=== PATIENT | male | born 1930 | race Caucasian/White ===

== ENCOUNTER 2017-07-06 13:22 | Observation (INO) | payer OTHER ==
[2017-07-06 13:36] VITALS: BMI 24.4
--- NOTE | 2017-07-06 15:52 | PDOC ---
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 The caregiver witnessed the event while he was sitting in his shower chair and showering, and she notes that first his speech became more slurred than usual, then vocalized a groan and had pinpoint pupils, and then he lost consciousness and had a non-traumatic slump forward without hitting his head or falling out of the chair. He came to within a few seconds but currently does not remember anything about the event. The caregiver helped transfer him to his bed where he was incontinent of stool ( watery diarrhea) and notes that he had one additional episode of incontinence of stool after this. The family notes that the patient has been acting more confused than normal. The patient himself notes about 30 minutes of low-grade dull non-radiating lower central chest pain for 30 minutes after the incident ( none now) as well as a low-grade frontal headache. The family denies any recent fever, chills, shortness of breath, cough, or other symptoms. They do note that he has had moderate blood in the stool and diaper over the past few days, as well as low-grade abdominal cramping about 4 days ago, and UTI for which he was treated with Keflex last week. Past History - Past Medical History Allergies/Adverse Reactions: Allergies Allergy/AdvReac Type Severity Reaction Status Date / Time No Known Allergies Allergy Verified 07/06/17 13:26 Home Medications: Ambulatory Orders Apixaban [Eliquis] 5 mg PO BID 07/06/17 Cholecalciferol (Vitamin D3) [D-2000] 1,000 unit PO DAILY 07/06/17 Diltiazem HCl [Diltiazem 24Hr Cd] 240 mg PO DAILY 07/06/17 Docusate Sodium [Stool Softener] 100 mg PO BID 07/06/17 Metoprolol Succinate [Toprol Xl -] 12.5 mg PO DAILY 07/06/17 Simvastatin 20 mg PO BID 07/06/17 Cardiac Disorders: Yes (A-Fib) CVA: Yes (2013 (left sided Hemiparesis)) COPD: No DVT: No HTN: Yes Hypercholesterolemia: Yes - Immunization History Immunization Up to Date: Yes - Suicide/Smoking/Psychosocial Hx Smoking History: Never smoked Have you smoked in the past 12 months: No If you are a former smoker, when did you quit?: 20yrs Information on smoking cessation initiated: No Hx Alcohol Use: No Drug/Substance Use Hx: No Substance Use Type: None Review of Systems - Review of Systems Able to Perform ROS?: Yes Constitutional: No: Chills, Fever, Unexplained wgt Loss HEENTM: No: Nose Congestion, Throat Pain Respiratory: No: Cough, Shortness of Breath Cardiac (ROS): Yes: Chest Pain, Edema (LLE per normal baseline), Syncope. No: Palpitations ABD/GI: Yes: Diarrhea, Rectal Bleeding. No: Constipated, Nausea, Vomiting : Yes: Burning (last week), Dysuria (last week), Hematuria, Incontinence ( bowel) Musculoskeletal: No: Back Pain, Neck Pain Integumentary: No: Bruising, Rash Neurological: Yes: Headache (low-grade frontal). No: Numbness, Tingling, Weakness, Dizziness Endocrine: No: Unexplained Weight Gain, Unexplained Weight Loss *Physical Exam - Vital Signs Last Vital Signs Temp Pulse Resp BP Pulse Ox 97.5 F L 58 L 16 145/71 94 L 07/06/17 13:26 07/06/17 13:26 07/06/17 13:26 07/06/17 13:26 07/06/17 13:26 - Physical Exam General Appearance: Yes: Nourished, Appropriately Dressed, Other (well- appearing elderly male who is alert and interactive and answers questions appropriately, at times difficult to understand 2/2 slurring from prior CVA, moving right extremities but minimal movement of left extremities). No: Apparent Distress HEENT: positive: EOMI, ARIELLE, Normal ENT Inspection, Hearing Grossly Normal. negative: Scleral Icterus (R), Scleral Icterus (L), Nasal Congestion Neck: positive: Trachea midline, Supple. negative: Tender, Rigid Respiratory/Chest: positive: Lungs Clear, Normal Breath Sounds. negative: Respiratory Distress, Crackles, Rhonchi, Stridor, Wheezing Cardiovascular: positive: Regular Rhythm, Edema (LLE 1+ pitting edema stated chronic), Bradycardia (mild). negative: Murmur, Diastolic Murmur, Systolic Murmur Gastrointestinal/Abdominal: positive: Normal Bowel Sounds, Soft. negative: Tender, Organomegaly, Pulsatile Mass, Guarding Musculoskeletal: positive: Normal Inspection. negative: Decreased Range of Motion, Vertebral Tenderness Extremity: positive: Normal Capillary Refill, Normal Inspection, Normal Range of Motion, Swelling (LLE 1+ pitting edema). negative: Tender, Cyanosis Integumentary: positive: Normal Color, Dry, Warm. negative: Erythema, Rash, Bruising Neurologic: positive: Fully Oriented, Alert, Normal Mood/Affect, Normal Response , Other (motor strength 2/5 left upper and lower extremities, motor strength 5/ 5 right upper and lower extremities). negative: Facial Droop, Confused, Disoriented Heart Score/ECG Review - History History: Slightly suspicious - Age Age: >/= 65 - Risk Factors Risk Factors Heart Score: Yes Hx Hypercholesterolemia, Yes Hx Hypertension, Yes Positive family hx of cardiac disease ED Treatment Course - LABORATORY CBC & Chemistry Diagram: 07/06/17 15:49 07/06/17 15:49 - ADDITIONAL ORDERS Additional order review: Laboratory Results 07/06/17 07/06/17 07/06/17 15:49 15:49 15:49 PT with INR INR Sodium 141 Potassium 4.7 Chloride 109 H Carbon Dioxide 25 Anion Gap 7 L BUN 14 Creatinine 1.6 H Creat Clearance w eGFR 41.00 Random Glucose 163 H Calcium 8.6 Magnesium 2.3 Total Bilirubin 0.4 AST 12 L ALT 16 Alkaline Phosphatase 82 Creatine Kinase 87 Troponin I < 0.02 B-Natriuretic Peptide 627.21 H Total Protein 6.2 L Albumin 3.0 L Lipase 231 Blood Type Cancelled Antibody Screen Cancelled Spec Expiration Date Cancelled 07/06/17 15:49 PT with INR 17.80 H INR 1.58 H Sodium Potassium Chloride Carbon Dioxide Anion Gap BUN Creatinine Creat Clearance w eGFR Random Glucose Calcium Magnesium Total Bilirubin AST ALT Alkaline Phosphatase Creatine Kinase Troponin I B-Natriuretic Peptide Total Protein Albumin Lipase Blood Type Antibody Screen Spec Expiration Date 07/06/17 15:49 RBC 4.36 MCV 86.6 MCHC 33.5 RDW 14.5 MPV 8.4 Neutrophils % 80.2 Lymphocytes % 11.4 Monocytes % 6.0 Eosinophils % 1.8 Basophils % 0.6 Medical Decision Making - Medical Decision Making 87 YOM with A-fib on Eliquis/Metoprolol, CVA, CAD, HTN, HLD who p/w syncopal episode. This is his third syncopal episode in recent years with the last being about a year ago. Non-traumatic and witnessed by caregiver, but noted are two episodes fecal incontinence of diarrhea. On exam pulse is 58, pulse ox is 94%, otherwise vitals within normal limits. Patient has chronic dysarthria and left extremity weakness from prior CVA. He is alert and oriented, conversive and answers appropriately, no obvious new neuro deficits. Regular rate and rhythm and no MGR on cardiac exam. Ordered is cardiac workup along with lipase. 07/06/17 16:35 WBC in the 10k's, CBCD otherwise non-directive. Cr 1.6 which could be ALBERTA but we have no priors for this patient. BNP is in the 600s but we have no baseline for the patient. Troponin is negative x1, EKG shows junctional bradycardia versus sinus bradycardia. CXR with cardiomegaly but no other acute cardiopulmonary process. 07/06/17 17:32 Patient and cannot remember their PCP's name at [facility]. Patient to be admitted to tele obs to Dr. Schultz who is wound care center consultant. Spoke with Dr. Schultz who agrees with the plan. Cardiology consult ordered. *DC/Admit/Observation/Transfer Diagnosis at time of Disposition: Symptomatic bradycardia, Syncope and collapse Chest pain Qualifiers: Chest pain type: unspecified Qualified Code(s): R07.9 - Chest pain, unspecified - Discharge Dispostion Condition at time of disposition: Guarded Admit: Yes - Referrals - Patient Instructions - Post Discharge Activity
--- NOTE | 2017-07-06 16:17 | PDOC ---
Attending Attestation - Resident Resident Name: RamosNoemi - ED Attending Attestation I have performed the following: I have examined & evaluated the patient, The case was reviewed & discussed with the resident, I agree w/resident's findings & plan, Exceptions are as noted - HPI HPI: 07/06/17 16:14 87y/o F h/o afib, CVA bib family and [employer] with syncope in the shower. - Physicial Exam PE: 07/06/17 16:15 VSS, HR 60 atraumatic regular bradycardia, no murmur L sided weakness chronic - Medical Decision Making 07/06/17 16:15 Patient seen and evaluated with the resident. I agree with the overall evaluation, assessment, and management with the following summary of visit: 87-year-old male history of atrial fibrillation and CVA presents with syncope, no trauma. labs, ua ekg, cxr admit for tele monitoring EKG with regular bradycardia. Has underlying afib, ? junctional versus sinus. BP stable at this time and essentially returned to baseline. Presentation most concerning for arrhythmia.
[2017-07-06 16:26] LABS: BASOPHIL 0.6 % (0-2.0); EOSINOPHIL 1.8 % (0-4.5); MCHC 33.5 g/dl (32.0-35.9); MEAN CELL VOLUME 86.6 fl (80-96); MEAN PLT VOLUME 8.4 fl (7.5-11.1); NEUTROPHILS 80.2 % (42.8-82.8); PLATELET COUNT 300 K/MM3 (134-434); RDW 14.5 % (11.9-15.9); WHITE BLOOD COUNT 10.3 K/mm3 (4.0-10.0)
[2017-07-06 16:38] LABS: INR 1.58 (0.82-1.09); PROTHROMBIN TIME (PATIENT) 17.8 SEC (9.98-11.88)
[2017-07-06 16:55] LABS: ANION GAP 7 (8-16); BILIRUBIN,TOTAL 0.4 mg/dL (0.2-1.0); CALCIUM 8.6 mg/dL (8.5-10.1); CO2 25 mmol/L (21-32); CREATININE 1.6 mg/dL (0.7-1.3); GLUCOSE,RANDOM 163 mg/dL (74-106); MAGNESIUM 2.3 mg/dL (1.8-2.4); SGOT/AST 12 U/L (15-37); TOT PROT 6.2 g/dl (6.4-8.2)
[2017-07-06 16:58] LABS: ALK PHOS 82 U/L (45-117); CPK 87 IU/L (39-308); SGPT/ALT 16 U/L (12-78); TROPONIN I < 0.02 ng/ml (0.00-0.05)
--- NOTE | 2017-07-06 21:41 | HP ---
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 The caregiver witnessed the event while he was sitting in his shower chair and showering, and she notes that first his speech became more slurred than usual, then vocalized a groan and had pinpoint pupils, and then he lost consciousness and had a non-traumatic slump forward without hitting his head or falling out of the chair. He came to within a few seconds but currently does not remember anything about the event. The caregiver helped transfer him to his bed where he was incontinent of stool ( watery diarrhea) and notes that he had one additional episode of incontinence of stool after this. The family notes that the patient has been acting more confused than normal. The patient himself notes about 30 minutes of low-grade dull non-radiating lower central chest pain for 30 minutes after the incident ( none now) as well as a low-grade frontal headache. The family denies any recent fever, chills, shortness of breath, cough, or other symptoms. They do note that he has had moderate blood in the stool and diaper over the past few days, as well as low-grade abdominal cramping about 4 days ago, and UTI for which he was treated with Keflex last week. 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 Cardiovascular: Yes: AFIB, HTN, Hyperlipdemia - Smoking History Smoking history: Never smoked Have you smoked in the past 12 months: No If you are a former smoker, when did you quit?: 20yrs - Alcohol/Substance Use Hx Alcohol Use: No Home Medications - Allergies Allergies/Adverse Reactions: Allergies Allergy/AdvReac Type Severity Reaction Status Date / Time No Known Allergies Allergy Verified 07/06/17 13:26 - Home Medications Home Medications: Ambulatory Orders Apixaban [Eliquis] 5 mg PO BID 07/06/17 Cholecalciferol (Vitamin D3) [D-2000] 1,000 unit PO DAILY 07/06/17 Diltiazem HCl [Diltiazem 24Hr Cd] 240 mg PO DAILY 07/06/17 Docusate Sodium [Stool Softener] 100 mg PO BID 07/06/17 Metoprolol Succinate [Toprol Xl -] 12.5 mg PO DAILY 07/06/17 Simvastatin 20 mg PO BID 07/06/17 Review of Systems - Review of Systems Neurological: reports: Syncope Physical Examination Vital Signs: Vital Signs Temperature 97.5 F L 07/06/17 13:26 Pulse Rate 66 07/06/17 19:44 Respiratory Rate 18 07/06/17 19:44 Blood Pressure 162/68 07/06/17 19:44 O2 Sat by Pulse Oximetry (%) 97 07/06/17 19:44 Constitutional: Yes: No Distress HENT: Yes: Atraumatic Neck: Yes: Supple Cardiovascular: Yes: Regular Rate and Rhythm Respiratory: Yes: CTA Bilaterally, Rhonchi Gastrointestinal: Yes: Normal Bowel Sounds Extremities: Yes: WNL Labs: CBC, BMP 07/06/17 15:49 07/06/17 15:49 Imaging - Results X-ray: Report Reviewed Problem List - Problems (1) HTN (hypertension) Assessment/Plan: on meds cardiolgy consult Code(s): I10 - ESSENTIAL (PRIMARY) HYPERTENSION (2) Syncope and collapse Assessment/Plan: echo carotid us Code(s): R55 - SYNCOPE AND COLLAPSE (3) HLD (hyperlipidemia) Assessment/Plan: on meds Code(s): E78.5 - HYPERLIPIDEMIA, UNSPECIFIED (4) CVA (cerebral vascular accident) Assessment/Plan: on meds Code(s): I63.9 - CEREBRAL INFARCTION, UNSPECIFIED Assessment/Plan Laboratory Tests 07/06/17 07/06/17 07/06/17 15:49 15:49 15:49 WBC 10.3 H RBC 4.36 Hgb 12.7 Hct 37.8 MCV 86.6 MCH 29.0 MCHC 33.5 RDW 14.5 Plt Count 300 MPV 8.4 Neutrophils % 80.2 Lymphocytes % 11.4 Monocytes % 6.0 Eosinophils % 1.8 Basophils % 0.6 PT with INR 17.80 H INR 1.58 H Sodium 141 Potassium 4.7 Chloride 109 H Carbon Dioxide 25 Anion Gap 7 L BUN 14 Creatinine 1.6 H Creat Clearance w eGFR 41.00 Random Glucose 163 H Calcium 8.6 Magnesium 2.3 Total Bilirubin 0.4 AST 12 L ALT 16 Alkaline Phosphatase 82 Creatine Kinase 87 Troponin I < 0.02 B-Natriuretic Peptide Total Protein 6.2 L Albumin 3.0 L Lipase Blood Type Antibody Screen Spec Expiration Date 07/06/17 07/06/17 15:49 15:49 WBC RBC Hgb Hct MCV MCH MCHC RDW Plt Count MPV Neutrophils % Lymphocytes % Monocytes % Eosinophils % Basophils % PT with INR INR Sodium Potassium Chloride Carbon Dioxide Anion Gap BUN Creatinine Creat Clearance w eGFR Random Glucose Calcium Magnesium Total Bilirubin AST ALT Alkaline Phosphatase Creatine Kinase Troponin I B-Natriuretic Peptide 627.21 H Total Protein Albumin Lipase 231 Blood Type Cancelled Antibody Screen Cancelled Spec Expiration Date Cancelled Active Medications Generic Name Dose Route Start Last Admin Trade Name Freq PRN Reason Stop Dose Admin Apixaban 5 mg 07/06/17 22:00 07/07/17 09:12 Eliquis - PO 5 mg BID MONICA Administration Atorvastatin Calcium 20 mg 07/06/17 22:00 07/06/17 21:58 Lipitor - PO 20 mg HS MONICA Administration Diltiazem HCl 240 mg 07/07/17 10:00 07/07/17 09:12 Cardizem Cd - PO 240 mg DAILY MONICA Administration
[2017-07-06] MEDS: APIXABAN 5 MG TABLET PO SCH (21:58)
[2017-07-06] MEDS ORDERED: ATORVASTATIN CA 20 MG TABLET (FP) PO SCH (22:00)
[2017-07-06 23:18] LABS: TROPONIN I 0.02 ng/ml (0.00-0.05)
[2017-07-07 02:53] LABS: URINE APPEARANCE SLCLOUDY; URINE BILIRUBIN NEGATIVE (NEGATIVE); URINE BLOOD NEGATIVE (NEGATIVE); URINE COLOR YELLOW; URINE GLUCOSE (UA) NEGATIVE (NEGATIVE); URINE KETONE NEGATIVE (NEGATIVE); URINE LEUK ESTERASE NEGATIVE (NEGATIVE); URINE NITRITE NEGATIVE (NEGATIVE); URINE UROBILINOGEN NEGATIVE mg/dL (0.2-1.0)
[2017-07-07 02:59] LABS: URINE PROTEIN 1+ (NEGATIVE)
[2017-07-07 03:10] LABS: URINE MUCUS RARE; URINE RBC 1 /hpf (0-3); URINE WBC 8 /hpf (3-5)
[2017-07-07 07:43] LABS: BASOPHIL 1.1 % (0-2.0); EOSINOPHIL 8.8 % (0-4.5); MCHC 33.8 g/dl (32.0-35.9); MEAN CELL VOLUME 85.9 fl (80-96); MEAN PLT VOLUME 8.2 fl (7.5-11.1); NEUTROPHILS 61.3 % (42.8-82.8); PLATELET COUNT 280 K/MM3 (134-434); WHITE BLOOD COUNT 7.3 K/mm3 (4.0-10.0)
[2017-07-07 07:53] LABS: ALBUMIN 2.6 g/dl (3.4-5.0); ANION GAP 6 (8-16); CALCIUM 7.9 mg/dL (8.5-10.1); CO2 24 mmol/L (21-32); GLUCOSE,RANDOM 83 mg/dL (74-106)
[2017-07-07 07:57] LABS: ALK PHOS 72 U/L (45-117); BILIRUBIN,TOTAL 0.4 mg/dL (0.2-1.0); CREATININE 1.3 mg/dL (0.7-1.3); SGOT/AST 10 U/L (15-37); SGPT/ALT 13 U/L (12-78); TOT PROT 5.5 g/dl (6.4-8.2)
[2017-07-07 09:04] LABS: CPK 70 IU/L (39-308); TROPONIN I 0.02 ng/ml (0.00-0.05)
[2017-07-07] MEDS: APIXABAN 5 MG TABLET PO SCH (09:12)
[2017-07-07] MEDS ORDERED: METOPROLOL SUCCINATE 25 MG TAB.SR.24H (FP) PO SCH (10:00)
--- NOTE | 2017-07-07 10:46 | EKG ---
Test Reason : Blood Pressure : / mmHG Vent. Rate : 058 BPM Atrial Rate : 059 BPM P-R Int : 000 ms QRS Dur : 082 ms QT Int : 436 ms P-R-T Axes : 000 011 -15 degrees QTc Int : 428 ms SINUS BRADYCARDIA BORDERLINE WITH 1ST DEGREE A-V BLOCK ABNORMAL ECG NO PREVIOUS ECGS AVAILABLE Confirmed by MD DEVORA, JULIETTE ([id number]) on 07/07/2017 10:46:15 AM Referred By: Confirmed By:JULIETTE LOZOYA MD
--- NOTE | 2017-07-07 12:15 | CON.CARD ---
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 Caregiver witnessed the event. occurred while he was sitting in his shower chair and showering. Per report, first his speech became more slurred, then groaned, then slumped forward with + LOC. No trauma. He came to within a few seconds. Subsequently noted to have watery diarrhea. Per report, patient recently more confused than normal. + blood in stool over the past few days, mild abdominal cramping. Also with + UTI for which he was treated with Keflex last week. Per report, patient endorsed 30 minutes of mild, dull, non-radiating, sscp after the incident (none now). + h/a after episode. The family denies any recent fever, chills, sweats, cough, congestion. . No shortness of breath, pmhx/pshx: per phi social hx: Never smoked. ambulates with wheelchair. Just moved to [place] and established with new pmd last month. fam hx: ros: per hpi Ambulatory Orders Apixaban [Eliquis] 5 mg PO BID 07/06/17 Cholecalciferol (Vitamin D3) [D] 1,000 unit PO DAILY 07/06/17 Diltiazem HCl [Diltiazem 24Hr Cd] 240 mg PO DAILY 07/06/17 Docusate Sodium [Stool Softener] 100 mg PO BID 07/06/17 Metoprolol Succinate [Toprol Xl -] 12.5 mg PO DAILY 07/06/17 Simvastatin 20 mg PO BID 07/06/17 Current Medications Apixaban (Eliquis -) 5 mg PO BID [facility] Last Admin: 07/07/17 09:12 Dose: 5 mg Atorvastatin Calcium (Lipitor -) 20 mg PO HS [facility] Last Admin: 07/06/17 21:58 Dose: 20 mg Diltiazem HCl (Cardizem Cd -) 240 mg PO DAILY [facility] Last Admin: 07/07/17 09:12 Dose: 240 mg Metoprolol Succinate (Toprol Xl -) 12.5 mg PO DAILY [facility] Vital Signs - 24 hr 07/06/17 07/06/1707/06/17 13:26 19:44 20:00 Temperature 97.5 F L 98.6 F Pulse Rate 58 L 64 Pulse Rate [ 66 Right Radial] Respiratory 16 18 16 Rate Blood Pressure 145/71 177/75 Blood Pressure 162/68 [Right Arm] O2 Sat by Pulse 94 L 97 Oximetry (%) 07/06/17 07/07/17 07/07/17 20:30 02:34 06:00 Temperature 97.7 F 98.8 F Pulse Rate 66 63 Pulse Rate [ Right Radial] Respiratory 18 18 Rate Blood Pressure 170/75 167/68 Blood Pressure [Right Arm] O2 Sat by Pulse 91 L Oximetry (%) 07/07/17 08:52 Temperature 98.4 F Pulse Rate 68 Pulse Rate [ Right Radial] Respiratory 18 Rate Blood Pressure 192/88 Blood Pressure [Right Arm] O2 Sat by Pulse Oximetry (%) Intake & Output 07/05/17 07/06/17 07/07/17 07/08/17 07:59 07:59 07:59 07:59 Intake Total 120 Output Total 100 Balance 20 Weight 175 lb NAD, calm JVD flat, neck supple rrr nl s1, s2 no m/r/g + bs soft nt nd ext without e/c/c + dp/pt no carotid bruits no jaundice, diaphoresis CBC, BMP 07/07/17 06:30 07/07/17 06:30 Laboratory Tests 07/06/17 07/06/17 07/06/17 15:49 15:49 15:49 WBC 10.3 H Creatinine 1.6 H Magnesium 2.3 Total Bilirubin AST ALT Alkaline Phosphatase Troponin I < 0.02 B-Natriuretic Peptide 627.21 H Albumin Lipase 231 07/06/17 07/07/17 22:00 06:30 WBC Creatinine 1.3 Magnesium Total Bilirubin 0.4 AST 10 L ALT 13 Alkaline Phosphatase 72 Troponin I 0.02 0.02 B-Natriuretic Peptide Albumin 2.6 L Lipase EKG 07/06: SB, 58 bpm. bline av delay. Non-specific t wave flattening. no acute ischemic changes. tele: CXR: cardiomegaly. bilateral perihilar increased lung markings. surgical clips over left lung base. - echo - carotid u/s - h/o GIB on coumadin. has tolerated eliquis thus far, but now with reports from family of bloody stool. pt with h/o colon ca s/p xrt. Small drop in hgb today. Will guaiac stool. - CAD s/p PCI - per report/chart here, but not present on history from prior medical records. > 20 min spent reviewing records from [facility]
[2017-07-07 14:41] LABS: URINE LEUK ESTERASE Negative (NEGATIVE)
--- NOTE | 2017-07-07 17:30 | PN ---
Progress Note, Physician - Current Medication List Current Medications: Active Medications Apixaban (Eliquis -) 5 mg PO BID [facility] Last Admin: 07/07/17 09:12 Dose: 5 mg Atorvastatin Calcium (Lipitor -) 20 mg PO HS [facility] Last Admin: 07/06/17 21:58 Dose: 20 mg Diltiazem HCl (Cardizem Cd -) 240 mg PO DAILY [facility] Last Admin: 07/07/17 09:12 Dose: 240 mg - Objective Vital Signs: Vital Signs Temperature 98.3 F 07/07/17 14:28 Pulse Rate 57 L 07/07/17 14:28 Respiratory Rate 18 07/07/17 14:28 Blood Pressure 147/67 07/07/17 14:28 O2 Sat by Pulse Oximetry (%) 91 L 07/07/17 13:00 Labs: CBC, BMP 07/07/17 06:30 07/07/17 06:30 INR, PTT INR 1.58 (0.82-1.09) H 07/06/17 15:49 Problem List - Problems (1) HTN (hypertension) Code(s): I10 - ESSENTIAL (PRIMARY) HYPERTENSION (2) Syncope and collapse Code(s): R55 - SYNCOPE AND COLLAPSE (3) HLD (hyperlipidemia) Code(s): E78.5 - HYPERLIPIDEMIA, UNSPECIFIED (4) CVA (cerebral vascular accident) Code(s): I63.9 - CEREBRAL INFARCTION, UNSPECIFIED
--- NOTE | 2017-07-07 18:08 | DS ---
Physical Examination Vital Signs: Vital Signs Temperature 98.3 F 07/07/17 14:28 Pulse Rate 57 L 07/07/17 14:28 Respiratory Rate 18 07/07/17 14:28 Blood Pressure 147/67 07/07/17 14:28 O2 Sat by Pulse Oximetry (%) 91 L 07/07/17 13:00 HENT: Yes: Atraumatic Neck: Yes: Supple Cardiovascular: Yes: Regular Rate and Rhythm Respiratory: Yes: CTA Bilaterally Gastrointestinal: Yes: Normal Bowel Sounds Extremities: Yes: WNL Neurological: Yes: Alert, Oriented Labs: CBC, BMP 07/07/17 06:30 07/07/17 06:30 Discharge Summary Reason For Visit: SYMTOMATIC BRADYCARDIA,SYNCOPE AND COLLAPSE,CHEST Current Active Problems CVA (cerebral vascular accident) (Acute) Chest pain (Acute) HLD (hyperlipidemia) (Acute) HTN (hypertension) (Acute) Symptomatic bradycardia (Acute) Syncope and collapse (Acute) Condition: Guarded - Instructions - Home Medications Comprehensive Discharge Medication List: Ambulatory Orders Apixaban [Eliquis] 5 mg PO BID 07/06/17 Cholecalciferol (Vitamin D3) [D-2000] 1,000 unit PO DAILY 07/06/17 Diltiazem HCl [Diltiazem 24Hr Cd] 240 mg PO DAILY 07/06/17 Docusate Sodium [Stool Softener] 100 mg PO BID 07/06/17 Metoprolol Succinate [Toprol Xl -] 12.5 mg PO DAILY 07/06/17 Simvastatin 20 mg PO BID 07/06/17 reports d/w with and daughter they made appointment with pts artifacts conservator for next week would like to take him home
[2017-07-07 18:20] VITALS: BP 181/87; PULSE 54; TEMP 98
== END 2017-07-07 19:22 | disposition home or self-care (01) ==
LOC: JER 13:22 → JERBED 18:13 → J4S 20:17
PROVIDERS: ADMIT Internal Medicine; ATTEND Internal Medicine
DX: R00.1 Bradycardia, unspecified (principal); I48.91 Unspecified atrial fibrillation; Z79.01 Long term (current) use of anticoagulants; I25.10 Atherosclerotic heart disease of native coronary artery without angina pectoris; I10 Essential (primary) hypertension; Z95.5 Presence of coronary angioplasty implant and graft; E78.5 Hyperlipidemia, unspecified; I69.854 Hemiplegia and hemiparesis following other cerebrovascular disease affecting left non-dominant side; I69.820 Aphasia following other cerebrovascular disease; Z85.038 Personal history of other malignant neoplasm of large intestine; F03.90 Unspecified dementia, unspecified severity, without behavioral disturbance, psychotic disturbance, mood disturbance, and anxiety; L89.159 Pressure ulcer of sacral region, unspecified stage; Z99.3 Dependence on wheelchair
CPT/HCPCS: 36415; 71010-TC; 80053; 81003; 81015; 82550; 83690; 83735; 83880; 84443; 84484; 85025; 85610; 93005; 93010; 93306-TC; 93880-TC; 99285-25; G0378

== ENCOUNTER 2018-07-03 16:17 | Inpatient (IN) | payer OTHER ==
[2018-07-03 16:57] VITALS: BMI 22.7
--- NOTE | 2018-07-03 17:18 | PDOC ---
Attending Attestation - Resident Resident Name: Blanche Velez - ED Attending Attestation I have performed the following: I have examined & evaluated the patient, The case was reviewed & discussed with the resident, I agree w/resident's findings & plan, Exceptions are as noted <Bassem Salas - Last Filed: 07/03/18 17:18> - HPI HPI: 07/03/18 17:29 CC: Syncope HPI: The patient is a 88 year old male, with a significant past medical history of anemia, vasovagal syndrome, a-fib, CAD (stents x2), CVA (with residual left- sided weakness), hyperlipidemia, and HTN, who presents to the emergency department s/p syncope with a headache and fatigue. As per patient and family, he has experienced multiple episodes in the past year. Patients notes he had two episodes yesterday when attempting to have a BM and two repeat episodes today. Patient normally has one episode of syncope every one to two weeks. Patient endorses a fall a month ago which, he went to urgent care and had a head CT without pertinent findings. He denies hitting his head today. He denies any head/neck injuries. He denies any recent fevers, chills, or dizziness. He denies any recent nausea, vomit, diarrhea or constipation. He denies any recent chest pain or shortness of breath. He denies any recent dysuria, frequency, urgency or hematuria. Allergies: NKDA Past surgical history: Abdominal hernia. Social History: Lives at home with and aid. Former smoker (Quit 20 years ago). <Jeremías Harry - Last Filed: 07/03/18 18:01> Attestations - Attestations 07/03/18 17:30 Documentation prepared by Jeremías Harry, acting as biomedical specialist for Bassem Salas MD. <Jeremías Harry - Last Filed: 07/03/18 18:01>
--- NOTE | 2018-07-03 17:50 | PDOC ---
History of Present Illness - General Chief Complaint: Syncope/Near Syncope Stated Complaint: SYNCOPE Time Seen by Provider: 07/03/18 16:27 - History of Present Illness Initial Comments: Constantine Casillas is a 88yo man with a PMH of afib, CAD s/p 2x stents, CVA w/ residual left-sided deficits, HTN, HLD and multiple syncopal episodes in the past who presents with syncope over last night and earlier today. His and aides are present in the ED. Per his and the aides, Mr Casillas has had several episdoes of syncope in the past, always while straining to have a bowel movement, and he was diagnosed with vasovagal syncope. He was admitted to the hospital in January following one of the events, and he had a thorough cardiac and neurological workup; during that episode, he was noted to be anemic with concern for GI bleeding but declined a scope at that time. His workup was otherwise unremarkable. Last night and today's episodes were his typical pattern of syncope while straining to have a bowel movement. However, his reports that generally the episodes are weeks to months apart, and he had 4 episodes of syncope in less than 24 hours. She was concerned by the frequency and brought him to the ED. They report that yesterday he had the first episode during an attempted BM followed by a second episode 30 minutes later. He was then reporting a headache. Today, he had two episodes within a few minutes, also while straining for a bowel movement. He has additionally been reporting fatigue for a day or two. Otherwise, Mr Casillas is in his general state of yeison, has no neurological deficits, no AMS, no urinary frequency, nausea/vomiting, or report of SOB, pain , or fevers. Past History - Past Medical History Allergies/Adverse Reactions: Allergies Allergy/AdvReac Type Severity Reaction Status Date / Time No Known Allergies Allergy Verified 02/07/18 05:00 Home Medications: Ambulatory Orders Apixaban [Eliquis] 5 mg PO BID 07/06/17 Cholecalciferol (Vitamin D3) [D3-2000] 1,000 unit PO DAILY 07/06/17 Diltiazem HCl [Diltiazem 24Hr Cd] 240 mg PO DAILY 07/06/17 Docusate Sodium [Stool Softener] 100 mg PO BID 07/06/17 Simvastatin 20 mg PO BID 07/06/17 Labetalol HCl 100 mg PO BID #60 tablet 02/08/18 Miscellaneous Drug Not In Syst [Outpatient Lab Test] 1 each ASDIR #1 misc 07/17 Polyethylene Glycol 3350 [Miralax 119 gm Btl -] 17 gm PO BID #1 bottle 02/08/18 Sennosides/Docusate Sodium [Senna Laxative Tablet] 1 each PO DAILY #7 tablet 07/17 Zinc Oxide 1 applic TP BID #1 tube 02/08/18 Anemia: No Asthma: No Cancer: No Cardiac Disorders: Yes (A-Fib) CVA: Yes (2013 (left sided Hemiparesis)) COPD: No CHF: No DVT: No Dementia: No Diabetes: No GI Disorders: No Disorders: No HTN: Yes Hypercholesterolemia: Yes Liver Disease: No Seizures: No Thyroid Disease: No - Surgical History Abdominal Surgery: Yes (hernia) Appendectomy: No Cardiac Surgery: No Cholecystectomy: No Lung Surgery: No Neurologic Surgery: No Orthopedic Surgery: No - Immunization History Immunization Up to Date: Yes - Suicide/Smoking/Psychosocial Hx Smoking History: Former smoker Have you smoked in the past 12 months: Yes If you are a former smoker, when did you quit?: 30yrs Information on smoking cessation initiated: No Hx Alcohol Use: No Drug/Substance Use Hx: No Substance Use Type: None Hx Substance Use Treatment: No Review of Systems - Review of Systems Comments:: 07/03/18 18:55 Could not obtain - could not or refusing to respond *Physical Exam - Vital Signs Last Vital Signs Temp Pulse Resp BP Pulse Ox 97.9 F 106 H 19 150/83 91 L 07/03/18 16:50 07/03/18 16:50 07/03/18 16:50 07/03/18 16:50 07/03/18 16:50 - Physical Exam Comments: General: Comfortable, no acute distress HEENT: PERRL, EOMI, dry MM, voice normal Cards: RRR, no murmur appreciated Pulm: Comfortable on supplemental O2 by NC Abd: Soft, nontender, nondistended : No CVA tenderness Ext: Atraumatic. No LE edema. No TTP, moves all extremities. Vasc: Extremities WWP. Palpable radial and pedal pulses bilaterally Skin: Normal color, no rashes. Stage 1 sacral ulcer Neuro: Alert, CN grossly intact, normal speech Psych: Mood appropriate to situation Moderate Sedation - Procedure Monitoring Vital Signs: Procedure Monitoring Vital Signs Temperature 97.9 F 07/03/18 16:50 Pulse Rate 106 H 07/03/18 16:50 Respiratory Rate 19 07/03/18 16:50 Blood Pressure 150/83 07/03/18 16:50 O2 Sat by Pulse Oximetry (%) 91 L 07/03/18 16:50 ED Treatment Course - RADIOLOGY Radiology Studies Ordered: Category Date Time Status HEAD CT WITHOUT CONTRAST [CT] Stat CT Scan 07/03/18 17:36 Ordered CHEST X-RAY PORTABLE* [RAD] Stat Radiology 07/03/18 17:36 Ordered Medical Decision Making - Medical Decision Making 07/03/18 17:50 Constantine Casillas is a 88yo man with a PMH of afib, CAD s/p 2x stents, CVA w/ residual left-sided deficits, HTN, HLD and multiple syncopal episodes in the past who presents with 4 episodes of syncope over the past day. - Previously diagnosed with vasovagal syncope. Although the circumstances of his current episodes are similar to previous, he has never had so many episodes so quickly. Also c/o headache and fatigue recently. Noted to be mildly tachycardic on initial exam. - Family reports a fall about a month ago. Mr Casillas had a CT immediately following the fall, but still concerning for possible chronic or slow subdural. CT head to r/o - h/o anemia w/ guaiac positive stool in January and refused workup. CBC to evaluate for anemia - Appears dry, and aide reports that Mr Casillas drinks few liquids. Could be cause of tachycardia and syncope. IVF bolus given, will reassess - h/o a-fib and CVA, reports no longer taking anticoagulation. Syncope could be due to arrhythmia; EKG and trop to evaluate for cardiac causes 07/03/18 18:33 - CXR reviewed. No acute changes noted from previous - EKG completed. New t-wave inversions in V3 and V4 compared to prior from January. - Labs and CT pending 07/03/18 18:58 Patient signed out to Dr Navarro for remainder of ED care. Seen and discussed with Dr Salas. Blanche Velez PGY1 *DC/Admit/Observation/Transfer Diagnosis at time of Disposition: Syncope - Referrals - Patient Instructions - Post Discharge Activity
[2018-07-03] MEDS ORDERED: SODIUM CHLORIDE 0.9% 500 ML INFUS.BAG IV ONE (18:31)
--- NOTE | 2018-07-03 19:37 | PDOC ---
*Physical Exam - Vital Signs Last Vital Signs Temp Pulse Resp BP Pulse Ox 97.9 F 106 H 19 150/83 91 L 07/03/18 16:50 07/03/18 16:50 07/03/18 16:50 07/03/18 16:50 07/03/18 16:50 ED Treatment Course - LABORATORY CBC & Chemistry Diagram: 07/03/18 19:30 07/03/18 19:30 - Medications Given in the ED: ED Medications Discontinued Medications Generic Name Dose Route Start Last Admin Trade Name Huy PRN Reason Stop Dose Admin Sodium Chloride 500 ml 07/03/18 18:31 07/03/18 19:03 Normal Saline - IV 07/03/18 18:32 500 ml ONCE ONE Administration Medical Decision Making - Medical Decision Making 07/03/18 19:[address] Velez. Patient is an 88 yo male w/ pmh of afib, CAD s/p 2 stents, CVA w/ left-sided deficits, HTN, HLD, who presents for evaluation s/p syncopal episode during bowel movement. This has happened in the past (most recently January) and GI bleeding concern elucidated. Patient was taken off of AC as he refused further workup. Patient has had 4 syncopal episodes in 24 hours. Also reporting increased fatigue for a day or two. 07/03/18 20:40 Patient noted to have positive troponin. CT negative. Cardiology paged. Hospitalist paged for admission. *DC/Admit/Observation/Transfer Diagnosis at time of Disposition: Elevated troponin Syncope Qualifiers: Syncope type: unspecified Qualified Code(s): R55 - Syncope and collapse - Discharge Dispostion Decision to Admit order: Yes - Referrals - Patient Instructions - Post Discharge Activity
[2018-07-03 19:40] LABS: BASO % 0.6 % (0-2.0); EOS % 0.5 % (0-4.5); HEMATOCRIT 34.1 % (35.4-49); HEMOGLOBIN 11.2 GM/dL (11.7-16.9); LYMPH % 7.6 % (8-40); MCH 24.6 pg (25.7-33.7); MCHC 32.9 g/dl (32.0-35.9); MEAN CELL VOLUME 74.7 fl (80-96); MEAN PLT VOLUME 8.4 fl (7.5-11.1); MONO % 10.5 % (3.8-10.2); NEUT % 80.8 % (42.8-82.8); PLATELET COUNT 388 K/MM3 (134-434); RBC 4.56 M/mm3 (4.00-5.60); RDW 20.8 % (11.9-15.9); WHITE BLOOD COUNT 11.7 K/mm3 (4.0-10.0)
[2018-07-03 20:34] LABS: ALBUMIN 2.7 g/dl (3.4-5.0); ALK PHOS 78 U/L (45-117); ANION GAP 12 MMOL/L (8-16); BILIRUBIN,TOTAL 0.2 mg/dL (0.2-1); BLOOD UREA NITROGEN 24 mg/dL (7-18); CALCIUM 8.5 mg/dL (8.5-10.1); CHLORIDE 118 mmol/L (98-107); CO2 19 mmol/L (21-32); CREATININE 1.8 mg/dL (0.55-1.3); GLUCOSE,RANDOM 144 mg/dL (74-106); POTASSIUM 4.2 mmol/L (3.5-5.1); SGOT/AST 16 U/L (15-37); SGPT/ALT 12 U/L (13-61); SODIUM 148 mmol/L (136-145); TOT PROT 6.4 g/dl (6.4-8.2)
[2018-07-03 20:59] LABS: ANISOCYTOSIS 2+; PLATELET ESTIMATE INCREASED
--- NOTE | 2018-07-03 21:28 | PN ---
Teaching Attending Note Name of Resident: Vinnie Dalton ATTENDING PHYSICIAN STATEMENT I saw and evaluated the patient. I reviewed the resident's note and discussed the case with the resident. I agree with the resident's findings and plan as documented. SUBJECTIVE: Patient is an 88 year old man with a PMH of afib, CAD s/p 2x stents, CVA w/ residual left-sided deficits, HTN, HLD and multiple syncopal episodes in the past who presents with syncope over last night and earlier today. Per his and the aides, Mr Casillas has had several episdoes of syncope in the past, always while straining to have a bowel movement, and he was diagnosed with vasovagal syncope. He was admitted to the hospital in January following one of the events, and he had a thorough cardiac and neurological workup; during that episode, he was noted to be anemic with concern for GI bleeding but declined EGD and Colonoscopy. Last night and today's episodes were his typical pattern of syncope while straining to have a bowel movement. However, his reports that generally the episodes are weeks to months apart, and he had 4 episodes of syncope in less than 24 hours. Has had associated headache and fatigue. OBJECTIVE: Alert Vital Signs Period Temp Pulse Resp BP Sys/Canales Pulse Ox Last 24 Hr 97.9 F 106 19 150/83 91 HEENT: No Jaundice, eye redness or discharge, PERRLA, EOMI. Normocephalic, atraumatic. External ears are normal and hearing is grossly intact. No nasal discharge. Neck: Supple, nontender. No palpable adenopathy or thyromegaly. No JVD Chest: Good effort. Clear to auscultation and percussion. Heart: Regular. No S3 or rub; 2/6 AMY Abdomen: Not distended, soft, nontender and no HSM. No rebound or guarding. Normoactive bowel sounds. Ext: Peripheral pulses intact. No leg edema. Stage 1 Sacral decubitus ulcer. Skin: Warm and dry. No petechiae, rash or ecchymosis. Neuro: Alert. Oriented x3. CN 2-12 grossly intact. Sensation grossly intact in all four extremities; left hemparesis. Gait cannot be tested for safety reasons. Home Medications Medication Instructions Recorded Apixaban [Eliquis] 5 mg PO BID 12/07/17 Cholecalciferol (Vitamin D3) 1,000 unit PO DAILY 07/06/17 [D3-2000] Diltiazem HCl [Diltiazem 24Hr Cd] 240 mg PO DAILY 07/06/17 Docusate Sodium [Stool Softener] 100 mg PO BID 07/06/17 Simvastatin 20 mg PO BID 07/06/17 Labetalol HCl 100 mg PO BID #60 tablet 02/08/18 Miscellaneous Drug Not In Syst 1 each ASDIR #1 misc 02/08/18 [Outpatient Lab Test] Polyethylene Glycol 3350 [Miralax 17 gm PO BID #1 bottle 02/08/18 119 gm Btl -] Sennosides/Docusate Sodium [Senna 1 each PO DAILY #7 tablet 02/08/18 Laxative Tablet] Zinc Oxide 1 applic TP BID #1 tube 02/08/18 Abnormal Lab Results 07/03/18 07/03/18 19:30 19:30 WBC 11.7 H Hgb 11.2 L Hct 34.1 L D MCV 74.7 L MCH 24.6 L RDW 20.8 H Absolute Neuts (auto) 9.5 H Lymphocytes % 7.6 L D Monocytes % 10.5 H Sodium 148 H Chloride 118 H Carbon Dioxide 19 L BUN 24 H Creatinine 1.8 H Random Glucose 144 H ALT 12 L Troponin I 0.61 H* Albumin 2.7 L ASSESSMENT AND PLAN: 1. Syncope and Elevated Troponin - No acute pathology on head CT scan and CXR. Patient has been extensively investigated for syncope and it has been attributed to Vasovagal syncope. Will admit to telemetry and implement fall and aspiration precautions as well as neurochecks. EKG shows NSR and t-wave changes on V4-5. Will get repeat EKG and troponin to rule out ACS. Patient is off Eliquis. ER staff called cardiology - will discuss anticoagulation if NSTEMI confirmed. 2. Hypoalbuminemia - Possibly due to combined effects of malnutrition and inflammation associated with comorbid chronic conditions. Will ensure adequate dietary protein intake and also consult coffin maker. 3. CKD - Etiology unclear. Encourage liberal oral fluid to correct any superimposed dehydration. Will avoid nephrotoxic agents such as NSAIDS, aminoglycosides, contrast dyes and certain Alternative medicine products. 4. Low MCV Anemia - Suspected to have occult GI bleeding but refused EGD and colonoscopy. Get serial stool guaiacs and continue oral iron. 5. DVT prophylaxis - Heparin 5000u sq tid. 6. Advance directives - Full code
[2018-07-03] MEDS ORDERED: HEPARIN NA (PORCINE) 5,000 UNITS/ML 1ML VIAL IVPUSH PRN ×2 (22:43)
--- NOTE | 2018-07-03 22:53 | HP ---
CHIEF COMPLAINT: syncope PCP: HISTORY OF PRESENT ILLNESS: Patient is an 88 y/o M w/ PMHx A-fib (*eliquis recently discontinued*), CAD w/ stents x 2, 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 Patient was admitted in January for same complaint and was diagnosed with vasovagal syncope. Syncopal episodes have occurred weeks to months apart; 4 episodes in 24 hours is significant increase in frequency. The patient denies CP , SOB, n/v/c/d, f/c, WEINSTEIN, abd pain, dysuria, any abnormal bleeding. Of note he had guaiac positive stool at last admission and refused endoscopy, Hb at that time was 9. Labs on presentation significant for Hb 11.2, ALBERTA (Cr 1.8, was 1 at last discharge), and positive troponin 0.61. HCT has no interval changes. CXR unremarkable. EKG demonstrates interval development of twi in V3 and V4. Per family, outpatient foreclosure paralegal made medication adjustments since last discharge including discontinuation of Eliquis. Other medications require reconciliation at this time. ER course was notable for: (1) Cr. 1.8 (2) Hb 11.2 (3) trop 0.61 Recent Travel: PAST MEDICAL HISTORY: As per HPI PAST SURGICAL HISTORY: As per HPI Social History: Smoking: Alcohol: Drugs: Family History: Allergies No Known Allergies Allergy (Verified 02/07/18 05:00) HOME MEDICATIONS: Home Medications Medication Instructions Recorded Cholecalciferol (Vitamin D3) 1,000 unit PO DAILY 07/06/17 [D3-2000] Diltiazem HCl [Diltiazem 24Hr Cd] 240 mg PO DAILY 07/06/17 Docusate Sodium [Stool Softener] 100 mg PO BID 07/06/17 Simvastatin 20 mg PO BID 07/06/17 Labetalol HCl 100 mg PO BID #60 tablet 02/08/18 Miscellaneous Drug Not In Syst 1 each ASDIR #1 misc 02/08/18 [Outpatient Lab Test] Polyethylene Glycol 3350 [Miralax 17 gm PO BID #1 bottle 02/08/18 119 gm Btl -] Sennosides/Docusate Sodium [Senna 1 each PO DAILY #7 tablet 02/08/18 Laxative Tablet] Zinc Oxide 1 applic TP BID #1 tube 02/08/18 REVIEW OF SYSTEMS As per HPI PHYSICAL EXAMINATION Vital Signs - 24 hr 07/03/18 16:50 Temperature 97.9 F Pulse Rate 106 H Respiratory 19 Rate Blood Pressure 150/83 O2 Sat by Pulse 91 L Oximetry (%) GENERAL: A&Ox3, NAD HEAD: NC/AT EYES: PERRLA, EOMI EARS, NOSE, THROAT: Moist mucous membranes. LUNGS: CTA b/l HEART: RRR, 2/6 systolic murmur at LUSB unchanged from prior exam ABDOMEN: +bs, soft, NT, ND EXTREMITIES: 2+ pulses, warm, well-perfused. No calf tenderness. No peripheral edema. NEUROLOGICAL: unchanged vs. examination during January hospitalization, findings as follows: -CN: normal except: reduced sensation in all branches of left CNV, pronounced L facial droop, asymmetric palatal rise (weaker on L), uvular deviation to right, left CNXI 1/5 strength, tongue deviation to left -motor exam: 4/5 in RUE and RLE throughout, 0/5 in LUE, 2/5 left hip flexion/ extension, 2/5 left knee flexion/extension, 4/5 left plantar/dorsiflexion; spasticity and hyperreflexia of LUE and LLE -sensory: reduced throughout left body and extremities -cerebellar: FtN intact on right, unable to ascertain on left PSYCHIATRIC: Cooperative. Good eye contact. Appropriate mood and affect. SKIN: stage 1 sacral ulcer Laboratory Results - last 24 hr 07/03/18 07/03/18 19:30 19:30 WBC 11.7 H RBC 4.56 Hgb 11.2 L Hct 34.1 L D MCV 74.7 L MCH 24.6 L MCHC 32.9 RDW 20.8 H Plt Count 388 MPV 8.4 Absolute Neuts (auto) 9.5 H Neutrophils % 80.8 D Lymphocytes % 7.6 L D Monocytes % 10.5 H Eosinophils % 0.5 D Basophils % 0.6 Nucleated RBC % 0 Platelet Estimate Increased Platelet Comment No clumping noted Anisocytosis 2+ Microcytosis 1+ Sodium 148 H Potassium 4.2 Chloride 118 H Carbon Dioxide 19 L Anion Gap 12 BUN 24 H Creatinine 1.8 H Creat Clearance w eGFR 35.70 Random Glucose 144 H Calcium 8.5 Total Bilirubin 0.2 AST 16 ALT 12 L Alkaline Phosphatase 78 Creatine Kinase 109 Troponin I 0.61 H* Total Protein 6.4 Albumin 2.7 L ASSESSMENT/PLAN: 88 y/o M w/ PMHx A-fib, CAD w/ stents x 2, 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 No CP, no neurologic symptoms. Troponemia to 0.61, no ST changes but interval development of t-wave inversions on EKG. #NSTEMI -presumptive NSTEMI until proven otherwise -trend troponins, repeat EKG -cardiology consulted -per cardiology: -metoprolol tartrate 25 q8h for rate control -IV heparin infusion -atorvastatin 80 -ASA -patient has been discontinued from eliquis since last hospitalization -medications require reconciliation #CVA -HCT negative, neurologic exam unchanged -neuro checks q6h #Afib/CAD/HTN/HLD -treat as per cardiology recommendations #ALBERTA -heparin infusion provides fluid resuscitation -otherwise treat cardiac issues at this time #FEN -no IVF -monitor and replete electrolytes -dysphagia puree w/ nectar liquid per previous S/S assessment #PPx -DVT: heparin infusion -GI: not indicated #code -full #dispo -tele obs at this time Visit type - Emergency Visit Emergency Visit: Yes ED Registration Date: 07/03/18 Care time: The patient presented to the Emergency Department on the above date and was hospitalized for further evaluation of their emergent condition. - New Patient This patient is new to me today: Yes Date on this admission: 07/03/18 - Critical Care Critical Care patient: No
[2018-07-03] MEDS ORDERED: ASPIRIN 81 MG CHEWABLE TABLETS PO ONE (23:00)
[2018-07-03] MEDS ORDERED: ATORVASTATIN CA 80 MG TABLET (FP) PO ONE (23:00)
[2018-07-03] MEDS ORDERED: METOPROLOL TARTRATE 25 MG TABLET (FP) PO ONE (23:00)
[2018-07-03] MEDS ORDERED: HEPARIN - 25,000 UNIT in SODIUM CHLORIDE 495 ML IV SCH (23:00)
--- NOTE | 2018-07-03 23:09 | CON.CARD ---
Consult - History of Present Illness History of Present Illness: Patient is an 88 y/o M w/ PMHx A-fib (*eliquis recently discontinued*), CAD w/ stents x 2, 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 Patient was admitted in January for same complaint and was diagnosed with vasovagal syncope. Syncopal episodes have occurred weeks to months apart; 4 episodes in 24 hours is significant increase in frequency. The patient denies CP , SOB, n/v/c/d, f/c, WEINSTEIN, abd pain, dysuria, any abnormal bleeding. Of note he had guaiac positive stool at last admission and refused endoscopy, Hb at that time was 9. Labs on presentation significant for Hb 11.2, ALBERTA (Cr 1.8, was 1 at last discharge), and positive troponin 0.61. HCT has no interval changes. CXR unremarkable. EKG demonstrates interval development of twi in V3 and V4. Per family, outpatient assistant customer service manager made medication adjustments since last discharge including discontinuation of Eliquis. Other medications require reconciliation at this time. 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 Cardio/Vascular: Yes: AFIB, HTN, Hyperlipdemia Renal/: Yes: Renal Inusuff - Alcohol/Substance Use Hx Alcohol Use: No History of Substance Use: reports: None - Smoking History Smoking history: Former smoker Have you smoked in the past 12 months: Yes If you are a former smoker, when did you quit?: 30yrs - Social History ADL: Independent Occupation: Retired: Worked for [employer] History of Recent Travel: No Home Medications - Allergies Allergies/Adverse Reactions: Allergies Allergy/AdvReac Type Severity Reaction Status Date / Time No Known Allergies Allergy Verified 02/07/18 05:00 - Home Medications Home Medications: Ambulatory Orders Cholecalciferol (Vitamin D3) [D3-2000] 1,000 unit PO DAILY 07/06/17 Diltiazem HCl [Diltiazem 24Hr Cd] 240 mg PO DAILY 07/06/17 Docusate Sodium [Stool Softener] 100 mg PO BID 07/06/17 Simvastatin 20 mg PO BID 07/06/17 Labetalol HCl 100 mg PO BID #60 tablet 02/08/18 Miscellaneous Drug Not In Syst [Outpatient Lab Test] 1 each ASDIR #1 misc 07/17 Polyethylene Glycol 3350 [Miralax 119 gm Btl -] 17 gm PO BID #1 bottle 02/08/18 Sennosides/Docusate Sodium [Senna Laxative Tablet] 1 each PO DAILY #7 tablet 07/17 Zinc Oxide 1 applic TP BID #1 tube 02/08/18 Vital Signs: Vital Signs Temperature 98 F 07/03/18 19:14 Pulse Rate 77 07/03/18 22:15 Respiratory Rate 16 07/03/18 22:15 Blood Pressure 133/77 07/03/18 22:15 O2 Sat by Pulse Oximetry (%) 99 07/03/18 22:15 - Other Data Labs, Other Data: CBC, BMP 07/03/18 19:30 07/03/18 19:30 Troponin, BNP 07/03/18 19:30 Troponin I 0.61 H* Troponin, BNP 07/03/18 19:30 Troponin I 0.61 H*
--- NOTE | 2018-07-03 23:30 | CON.CARD ---
Consult Consult Specialty:: cardiology Reason for Consultation:: sncope - History of Present Illness Chief Complaint: Pt alert; denies dizziness or chest pain. History of Present Illness: Mr. 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 As per patient and family, he has experienced multiple episodes in the past year. Patients notes he had two episodes yesterday when attempting to have a BM and two repeat episodes today. Patient normally has one episode of syncope every one to two weeks. Patient endorses a fall a month ago which, he went to urgent care and had a head CT without pertinent findings. He denies hitting his head today. He denies any head/neck injuries. He denies any recent fevers, chills, or dizziness. He denies any recent nausea, vomit, diarrhea or constipation. He denies any recent chest pain or shortness of breath. He denies any recent dysuria, frequency, urgency or hematuria. Social History: Lives at home with and aid. Former smoker (Quit 20 years ago). 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 Depressed over decreased mobility since CVA; formerly "swam in the [place]", and enjoyed long walks and kayaking. 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 Cardio/Vascular: Yes: AFIB, HTN, Hyperlipdemia Renal/: Yes: Renal Inusuff Psych: Yes: Anxiety, Depression - Alcohol/Substance Use Hx Alcohol Use: No History of Substance Use: reports: None - Smoking History Smoking history: Former smoker (2 ppd x 40 years) Have you smoked in the past 12 months: Yes If you are a former smoker, when did you quit?: 30yrs - Social History ADL: Independent Occupation: Retired: Worked for [employer] History of Recent Travel: No Home Medications - Allergies Allergies/Adverse Reactions: Allergies Allergy/AdvReac Type Severity Reaction Status Date / Time No Known Allergies Allergy Verified 02/07/18 05:00 - Home Medications Home Medications: Ambulatory Orders Cholecalciferol (Vitamin D3) [D3-1999] 1,000 unit PO DAILY 07/06/17 Docusate Sodium [Stool Softener] 100 mg PO BID 07/06/17 Simvastatin 20 mg PO HS 07/06/17 Labetalol HCl 100 mg PO BID #60 tablet 02/08/18 Miscellaneous Drug Not In Syst [Outpatient Lab Test] 1 each ASDIR #1 misc 07/17 Polyethylene Glycol 3350 [Miralax 119 gm Btl -] 17 gm PO BID #1 bottle 02/08/18 Sennosides/Docusate Sodium [Senna Laxative Tablet] 1 each PO DAILY #7 tablet 07/17 Zinc Oxide 1 applic TP BID #1 tube 02/08/18 Family Disease History - Family Disease History Family History: Denies Review of Systems - Review of Systems Constitutional: reports: Weakness Eyes: reports: No Symptoms Neck: reports: Decreased ROM Cardiovascular: reports: No Symptoms Respiratory: reports: No Symptoms Gastrointestinal: reports: No Symptoms Genitourinary: reports: No Symptoms Musculoskeletal: reports: Muscle Weakness. denies: Decreased ROM (s/p CVA) Integumentary: reports: No Symptoms Neurological: reports: Pre-Existing Deficit (CVA with residual weakness), Weakness Psychiatric: reports: Anxiety, Depression - Risk Factors Known Risk Factors: Yes: Age, Gender, Physical Inactivity, Prior [place] /[place] Stroke , Smoking Vital Signs: Vital Signs Temperature 98 F 07/03/18 19:14 Pulse Rate 77 07/03/18 22:15 Respiratory Rate 16 07/03/18 22:15 Blood Pressure 133/77 07/03/18 22:15 O2 Sat by Pulse Oximetry (%) 99 07/03/18 22:15 Constitutional: Yes: Calm, Thin Eyes: Yes: WNL HENT: Yes: WNL Neck: Yes: Decreased ROM Respiratory: Yes: Regular Gastrointestinal: Yes: Soft Renal/: No: Anuria Cardiovascular: Yes: Regular Rate and Rhythm JVD: No Carotid Bruit: No PMI: Non-Displaced Heart Sounds: Yes: S1 (split), S2, S4 Murmur: Yes: Systolic Murmur, Grade 1 Musculoskeletal: Yes: Muscle Weakness, Other (left-sided weakness: chronic (CVA) ) Extremities: Yes: Cool Edema: No Peripheral Pulses WNL: Yes Integumentary: Yes: WNL Neurological: Yes: Alert, Oriented, Weakness Psychiatric: Yes: Other (anxiety/depression) - Other Data Labs, Other Data: CBC, BMP 07/03/18 19:30 07/03/18 19:30 Troponin, BNP 07/03/18 19:30 Troponin I 0.61 H* Troponin, BNP 07/03/18 19:30 Troponin I 0.61 H* Abnormal Lab Results 07/05/18 07/05/18 05:30 10:20 Hgb 9.5 L Hct 31.1 L MCV 76.2 L MCH 23.3 L MCHC 30.6 L RDW 20.4 H ABG pCO2 at Pt Temp 30.2 L ABG HCO3 19.3 L ABG Base Excess -3.7 L Imaging - Results Chest X-ray: Image Reviewed (no acute pathology; left clips) EKG: Image Reviewed (NSR; T wave changes anteriorly; 1st degress AV block) Problem List - Problems (1) Elevated troponin Assessment/Plan: 0.6 (<0.02 in January of this year). No significant ST-T changes. ?syncope related to myocardial injury Recommend: IV heparin Metoprolol Atorvastatin. ASA 325 mg x 1, then 81 mg daily. Telemetry or ICU admission. Serial TNI; CK/CKMB. BNP ECHO for LVEF, wall motion. Code(s): R74.8 - ABNORMAL LEVELS OF OTHER SERUM ENZYMES (2) Syncope Assessment/Plan: hx multiple episodes of syncope, usually related to having bowel movement. F/u orthostatic vital signs. Avoid dehydration. Carotid artery US 02/14: at least moderate atherosclerotic plaque at ICA bifurcation, with stenosis: MRA may be of benefit (renal dysfunction may preclude use of CT) Repeat ECHO for LVEF, wall motion (now with elevated TNI; r/o myocardial infarct ). Code(s): R55 - SYNCOPE AND COLLAPSE Qualifiers: Syncope type: unspecified Qualified Code(s): R55 - Syncope and collapse (3) Anemia Code(s): D64.9 - ANEMIA, UNSPECIFIED (4) CVA (cerebral vascular accident) Code(s): I63.9 - CEREBRAL INFARCTION, UNSPECIFIED (5) HLD (hyperlipidemia) Code(s): E78.5 - HYPERLIPIDEMIA, UNSPECIFIED
[2018-07-04] MEDS: METOPROLOL TARTRATE 25 MG TABLET (FP) PO SCH ×3 (05:23→21:40)
[2018-07-04 06:46] LABS: BASO % 0.8 % (0-2.0); EOS % 3.1 % (0-4.5); HEMATOCRIT 33.1 % (35.4-49); HEMOGLOBIN 10.1 GM/dL (11.7-16.9); LYMPH % 13.4 % (8-40); MCH 23.3 pg (25.7-33.7); MCHC 30.6 g/dl (32.0-35.9); MEAN CELL VOLUME 76.2 fl (80-96); MEAN PLT VOLUME 8.6 fl (7.5-11.1); MONO % 9.4 % (3.8-10.2); NEUT % 73.3 % (42.8-82.8); PLATELET COUNT 316 K/MM3 (134-434); RBC 4.35 M/mm3 (4.00-5.60); RDW 20.8 % (11.9-15.9)
[2018-07-04 06:54] LABS: INR 1.05 (0.83-1.09); PROTHROMBIN TIME (PATIENT) 12.4 SEC (9.7-13.0)
[2018-07-04 07:43] LABS: N-TERMINAL BNP 25554.9 pg/ml (5-450)
[2018-07-04 09:18] LABS: ANION GAP 11 MMOL/L (8-16); BLOOD UREA NITROGEN 23 mg/dL (7-18); CALCIUM 8.3 mg/dL (8.5-10.1); CHLORIDE 120 mmol/L (98-107); CO2 19 mmol/L (21-32); CREATININE 1.5 mg/dL (0.55-1.3); GLUCOSE,RANDOM 102 mg/dL (74-106); MAGNESIUM 2.2 mg/dL (1.8-2.4); PHOSPHOROUS 4.1 mg/dL (2.5-4.9); POTASSIUM 4.4 mmol/L (3.5-5.1); SODIUM 150 mmol/L (136-145)
[2018-07-04] MEDS ORDERED: ASPIRIN COATED 81 MG TABLET.EC PO SCH (10:00)
[2018-07-04] MEDS: HEPARIN INFUSION - 25,000 UNITS/500 ML INFUS.BAG IVPB SCH (11:05)
--- NOTE | 2018-07-04 12:05 | EKG ---
Test Reason : Blood Pressure : / mmHG Vent. Rate : 066 BPM Atrial Rate : 066 BPM P-R Int : 212 ms QRS Dur : 090 ms QT Int : 466 ms P-R-T Axes : 063 -07 -50 degrees QTc Int : 488 ms SINUS RHYTHM WITH 1ST DEGREE A-V BLOCK T WAVE ABNORMALITY, CONSIDER ANTERIOR ISCHEMIA PROLONGED QT ABNORMAL ECG WHEN COMPARED WITH ECG OF 03-JUL-2018 18:22, PREMATURE ATRIAL COMPLEXES ARE NO LONGER PRESENT Confirmed by AISHWARYA LEMOS, BEATRIZ ([id number]) on 07/04/2018 12:04:41 PM Referred By: BRIDGETTE NOE DR Confirmed By:BEATRIZ NEFF MD
--- NOTE | 2018-07-04 12:52 | CONSULT ---
Consult Consult Specialty:: Nephrology Reason for Consultation:: hypernatremia - History of Present Illness Chief Complaint: syncope History of Present Illness: Pt is an 88 year old male with pmhx of anemia, ckd, a-fib, cva, vasovagal syndrome, htn and hld who presents to the ER after a syncopal episode. He was found to be in renal failure and found to be hypernatremic. He had the syncopal episode while straining. He denies dysuia. or hematuria. He does have appetite. He denies shortness of breath. 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 Cardio/Vascular: Yes: AFIB, HTN, Hyperlipdemia Renal/: Yes: Renal Inusuff - Alcohol/Substance Use Hx Alcohol Use: No History of Substance Use: reports: None - Smoking History Smoking history: Former smoker Have you smoked in the past 12 months: Yes If you are a former smoker, when did you quit?: 30yrs - Social History ADL: Independent Occupation: Retired: Worked for [employer] History of Recent Travel: No Home Medications - Allergies Allergies/Adverse Reactions: Allergies Allergy/AdvReac Type Severity Reaction Status Date / Time No Known Allergies Allergy Verified 02/07/18 05:00 - Home Medications Home Medications: Ambulatory Orders Cholecalciferol (Vitamin D3) [D3-2000] 1,000 unit PO DAILY 07/06/17 Diltiazem HCl [Diltiazem 24Hr Cd] 240 mg PO DAILY 07/06/17 Docusate Sodium [Stool Softener] 100 mg PO BID 07/06/17 Simvastatin 20 mg PO BID 07/06/17 Labetalol HCl 100 mg PO BID #60 tablet 02/08/18 Miscellaneous Drug Not In Syst [Outpatient Lab Test] 1 each ASDIR #1 misc 07/17 Polyethylene Glycol 3350 [Miralax 119 gm Btl -] 17 gm PO BID #1 bottle 02/08/18 Sennosides/Docusate Sodium [Senna Laxative Tablet] 1 each PO DAILY #7 tablet 07/17 Zinc Oxide 1 applic TP BID #1 tube 02/08/18 Family Disease History - Family Disease History Family History: Denies Review of Systems - Review of Systems Constitutional: reports: Malaise, Weakness Eyes: reports: No Symptoms HENT: reports: No Symptoms Cardiovascular: denies: Edema Respiratory: denies: SOB, SOB on Exertion Gastrointestinal: reports: No Symptoms Genitourinary: reports: No Symptoms Musculoskeletal: reports: Muscle Weakness Neurological: reports: Change in LOC, Pre-Existing Deficit, Syncope Hematology/Lymphatic: reports: No Symptoms Psychiatric: reports: No Symptoms Physical Exam Vital Signs: Vital Signs Temperature 97.8 F 07/04/18 08:36 Pulse Rate 66 07/04/18 08:36 Respiratory Rate 16 07/04/18 08:36 Blood Pressure 145/76 07/04/18 08:36 O2 Sat by Pulse Oximetry (%) 90 L 07/04/18 11:08 Constitutional: Yes: Calm Eyes: Yes: Conjunctiva Clear Cardiovascular: Yes: Pulse Irregular, S1, S2 Respiratory: Yes: CTA Bilaterally Gastrointestinal: Yes: Normal Bowel Sounds, Soft Renal/: Yes: Incontinence Musculoskeletal: Yes: Muscle Weakness Edema: No Neurological: Yes: Oriented, Pre-Existing Deficit Labs: CBC, BMP 07/04/18 05:30 07/04/18 05:30 Laboratory Tests 07/06/17 07/07/17 02/06/18 15:49 06:30 23:50 Sodium Creatinine 1.6 H 1.3 1.5 H B-Natriuretic Peptide 02/08/18 07/03/18 07/04/18 05:30 19:30 05:30 Sodium 148 H 150 H Creatinine 1.0 1.8 H 1.5 H B-Natriuretic Peptide 63773.9 H Imaging - Results Chest X-ray: Report Reviewed Problem List - Problems (1) Hypernatremia Code(s): E87.0 - HYPEROSMOLALITY AND HYPERNATREMIA (2) Elevated troponin Code(s): R74.8 - ABNORMAL LEVELS OF OTHER SERUM ENZYMES (3) Syncope Code(s): R55 - SYNCOPE AND COLLAPSE Qualifiers: Syncope type: unspecified Qualified Code(s): R55 - Syncope and collapse (4) Anemia Code(s): D64.9 - ANEMIA, UNSPECIFIED (5) CKD (chronic kidney disease) Code(s): N18.9 - CHRONIC KIDNEY DISEASE, UNSPECIFIED (6) HLD (hyperlipidemia) Code(s): E78.5 - HYPERLIPIDEMIA, UNSPECIFIED (7) HTN (hypertension) Code(s): I10 - ESSENTIAL (PRIMARY) HYPERTENSION Assessment/Plan Current Medications Generic Name Dose Route Start Last Admin Trade Name Freq PRN Reason Stop Dose Admin Heparin Sodium (Porcine) 1,000 unit 07/03/18 22:43 07/04/18 11:05 Heparin - IVPUSH 1,000 unit PRN PRN Administration Heparin Heparin Sodium (Porcine) 5,000 unit 07/03/18 22:43 Heparin - IVPUSH PRN PRN Heparin Heparin Sodium/Dextrose 25,000 units in 500 mls @ 20 mls/hr 07/04/18 10:00 11:05 Heparin Infusion - IVPB 1,000 units/hr TITR MONICA 20 mls/hr Administration Protocol 1,000 UNITS/HR Metoprolol Tartrate 25 mg 07/04/18 06:00 07/04/18 05:23 Lopressor - PO 25 mg TID MONICA Administration Impression 1. CKD 2. syncope 3. a-fib 4. cva 5. hld 6. ALBERTA 7. hypernatremia Plan - renal function is improving - will start d5w - encourage free water intake - check ua - total free water deficit about 2.2 liters - will follow Dr Cramer
--- NOTE | 2018-07-04 13:04 | EKG ---
Test Reason : Blood Pressure : / mmHG Vent. Rate : 090 BPM Atrial Rate : 090 BPM P-R Int : 194 ms QRS Dur : 086 ms QT Int : 370 ms P-R-T Axes : 052 004 -22 degrees QTc Int : 452 ms SINUS RHYTHM WITH PREMATURE ATRIAL COMPLEXES NONSPECIFIC T WAVE ABNORMALITY ABNORMAL ECG WHEN COMPARED WITH ECG OF 07-FEB-2018 00:21, SINUS RHYTHM HAS REPLACED JUNCTIONAL RHYTHM VENT. RATE HAS INCREASED BY 30 BPM T WAVE INVERSION NOW EVIDENT IN INFERIOR LEADS T WAVE INVERSION NOW EVIDENT IN ANTERIOR LEADS Confirmed by AISHWARYA LEMOS, BEATRIZ ([id number]) on 07/04/2018 1:03:34 PM Referred By: Confirmed By:BEATRIZ NEFF MD
[2018-07-04] MEDS ORDERED: DEXTROSE 5%-WATER - 1,000 ML IV SCH (13:15)
--- NOTE | 2018-07-04 13:40 | PN ---
Progress Note, Physician History of Present Illness: Mr. 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 As per patient and family, he has experienced multiple episodes in the past year. Patients notes he had two episodes yesterday when attempting to have a BM and two repeat episodes today. Patient normally has one episode of syncope every one to two weeks. Patient endorses a fall a month ago which, he went to urgent care and had a head CT without pertinent findings. He denies hitting his head today. He denies any head/neck injuries. He denies any recent fevers, chills, or dizziness. He denies any recent nausea, vomit, diarrhea or constipation. He denies any recent chest pain or shortness of breath. He denies any recent dysuria, frequency, urgency or hematuria. Social History: Lives at home with and aid. Former smoker (Quit 20 years ago). - Current Medication List Current Medications: Active Medications Heparin Sodium (Porcine) (Heparin -) 1,000 unit IVPUSH PRN PRN PRN Reason: Heparin Last Admin: 07/04/18 11:05 Dose: 1,000 unit Heparin Sodium (Porcine) (Heparin -) 5,000 unit IVPUSH PRN PRN PRN Reason: Heparin Heparin Sodium/Dextrose (Heparin Infusion -) 25,000 units in 500 mls @ 20 mls/ hr IVPB TITR [facility]; Protocol Last Admin: 07/04/18 11:05 Dose: 1,000 units/hr, 20 mls/hr Dextrose (D5w -) 1,000 mls @ 42 mls/hr IV .[id number] [facility] Metoprolol Tartrate (Lopressor -) 25 mg PO TID [facility] Last Admin: 07/04/18 05:23 Dose: 25 mg - Objective Vital Signs: Vital Signs Temperature 97.8 F 07/04/18 08:36 Pulse Rate 66 07/04/18 08:36 Respiratory Rate 16 07/04/18 08:36 Blood Pressure 145/76 07/04/18 08:36 O2 Sat by Pulse Oximetry (%) 90 L 07/04/18 11:08 Eyes: Yes: WNL, Conjunctiva Clear, EOM Intact HENT: Yes: WNL, Atraumatic, Normocephalic Neck: Yes: WNL, Supple, Trachea Midline Cardiovascular: Yes: WNL, Regular Rate and Rhythm Respiratory: Yes: WNL, Regular, CTA Bilaterally Gastrointestinal: Yes: WNL, Normal Bowel Sounds Genitourinary: Yes: WNL Musculoskeletal: Yes: WNL Extremities: Yes: WNL Edema: No Integumentary: Yes: WNL Neurological: Yes: WNL, Alert, Oriented ...Motor Strength: WNL Psychiatric: Yes: WNL Labs: CBC, BMP 07/04/18 05:30 07/04/18 05:30 INR, PTT INR 1.05 (0.83-1.09) 07/04/18 05:30 Assessment/Plan - Problems (1) Elevated troponin Assessment/Plan: 0.6 (<0.02 in January of this year). No significant ST-T changes. ?syncope related to myocardial injury Recommend: IV heparin Metoprolol Atorvastatin. ASA 325 mg x 1, then 81 mg daily. Telemetry or ICU admission. Serial TNI; CK/CKMB. BNP ECHO for LVEF, wall motion. Code(s): R74.8 - ABNORMAL LEVELS OF OTHER SERUM ENZYMES (2) Syncope Assessment/Plan: hx multiple episodes of syncope, usually related to having bowel movement. F/u orthostatic vital signs. Avoid dehydration. Carotid artery US 02/14: at least moderate atherosclerotic plaque at ICA bifurcation, with stenosis: MRA may be of benefit (renal dysfunction may preclude use of CT) Repeat ECHO for LVEF, wall motion (now with elevated TNI; r/o myocardial infarct ). Code(s): R55 - SYNCOPE AND COLLAPSE Qualifiers: Syncope type: unspecified Qualified Code(s): R55 - Syncope and collapse (3) Anemia Code(s): D64.9 - ANEMIA, UNSPECIFIED (4) CVA (cerebral vascular accident) Code(s): I63.9 - CEREBRAL INFARCTION, UNSPECIFIED (5) HLD (hyperlipidemia) Code(s): E78.5 - HYPERLIPIDEMIA, UNSPECIFIED
--- NOTE | 2018-07-04 14:20 | ECHO ---
Name: ANDREA JAVED Exam:Adult Echocardiogram Study Date: 07/04/2018 10:43 AM Age: 88 yrs Reason For Study: ELEVATED TNI SYNCOPE Height: 66 in Weight: 141 lb BSA: 1.7 m2 MMode/2D Measurements & Calculations IVSd: 0.96 cm Ao root diam: 3.2 cm LVIDd: 4.3 cm LVIDs: 3.2 cm LVPWd: 0.77 cm EDV(Teich): 81.2 ml ESV(Teich): 42.4 ml Doppler Measurements & Calculations MV E max jossue: 29.7 cm/sec TR max jossue: 195.2 cm/sec MV A max jossue: 53.2 cm/sec TR max P.0 mmHg MV E/A: 0.56 Med Peak E' Jossue: 5.1 cm/sec Med E/e': 5.9 Lat Peak E' Jossue: 4.7 cm/sec Lat E/e': 6.3 Procedure A two-dimensional transthoracic echocardiogram with color flow and Doppler was performed. The study w as technically difficult with many images being suboptimal in quality. Left Ventricle The left ventricle is grossly normal size. Left ventricular systolic function is mild to moderately r educed. E/A reversal consistent with but not diagnostic of poor LV compliance. Regional wall motion abnormali ties cannot be excluded due to limited visualization. There is mild to moderate global hypokinesis of the left ventricle. Right Ventricle The right ventricle is not well visualized. Atria The left atrium is not well visualized. Right atrium not well visualized. Mitral Valve There is mild mitral valve thickening. There is no mitral valve stenosis. There is mild mitral regurg itation. Tricuspid Valve There is mild tricuspid valve thickening. There is no tricuspid stenosis. There is mild tricuspid regurgitation. Aortic Valve There is mild to moderate aortic valve thickening. There is mild to moderate aortic sclerosis.;. The aortic valve is not well visualized. No hemodynamically significant valvular aortic stenosis. Moderate aorti c regurgitation. Pulmonic Valve The pulmonic valve is not well visualized. Great Vessels The aortic root is normal size. Pericardium/Pleura Small pericardial effusion (<1cm). Interpretation Summary There is mild to moderate aortic sclerosis.; There is mild to moderate aortic valve thickening. The study was technically difficult with many images being suboptimal in quality. Small pericardial effusion (<1cm) Moderate aortic regurgitation. The aortic valve is not well visualized. E/A reversal consistent with but not diagnostic of poor LV compliance Regional wall motion abnormalities cannot be excluded due to limited visualization. The left ventricle is grossly normal size. Left ventricular systolic function is mild to moderately reduced. There is mild to moderate global hypokinesis of the left ventricle. MD Mark Ocasio 07/04/2018 02:20 PM
--- NOTE | 2018-07-04 14:39 | PN ---
Physical Exam: SUBJECTIVE: Patient seen and examined at bedside. no acute events overnight; patient states that he is feeling ok and is not in any pain. he denies any CP/ SOB/N/V fevers or chills. On room air patient's oxygen status was in the high 80 's low 90's. OBJECTIVE: Vital Signs Period Temp Pulse Resp BP Sys/Canales Pulse Ox Last 24 Hr 97.3 F-98.5 F 66-106 16-20 114-150/60-84 90-99 GENERAL: The patient is awake, alert, slightly tachypneic at rest. EYES: no scleral icterus NECK: no JVD, LUNGS: Breath sounds equal, clear to auscultation bilaterally, no wheezes, no crackles, no accessory muscle use. HEART: irregularly irregular S1, S2 without murmur, rub or gallop. ABDOMEN: Soft, nontender, nondistended, normoactive bowel sounds, no guarding, no rebound, no hepatosplenomegaly, no masses. EXTREMITIES: 2+ pulses, warm, well-perfused, no edema. NEUROLOGICAL: left sided weakness (from CVA in the past), dysarthria SKIN: Warm, dry, normal turgor, no rashes or lesions noted Laboratory Results - last 24 hr 07/03/18 07/03/18 07/04/18 19:30 19:30 01:30 WBC 11.7 H RBC 4.56 Hgb 11.2 L Hct 34.1 L D MCV 74.7 L MCH 24.6 L MCHC 32.9 RDW 20.8 H Plt Count 388 MPV 8.4 Absolute Neuts (auto) 9.5 H Neutrophils % 80.8 D Lymphocytes % 7.6 L D Monocytes % 10.5 H Eosinophils % 0.5 D Basophils % 0.6 Nucleated RBC % 0 Platelet Estimate Increased Platelet Comment No clumping noted Anisocytosis 2+ Microcytosis 1+ PT with INR INR PTT (Actin FS) 29.4 Sodium 148 H Potassium 4.2 Chloride 118 H Carbon Dioxide 19 L Anion Gap 12 BUN 24 H Creatinine 1.8 H Creat Clearance w eGFR 35.70 Random Glucose 144 H Calcium 8.5 Phosphorus Magnesium Total Bilirubin 0.2 AST 16 ALT 12 L Alkaline Phosphatase 78 Creatine Kinase 109 Troponin I 0.61 H* B-Natriuretic Peptide Total Protein 6.4 Albumin 2.7 L Blood Type Antibody Screen 07/04/18 07/04/18 07/04/18 01:30 05:30 05:30 WBC 9.0 RBC 4.35 Hgb 10.1 L Hct 33.1 L MCV 76.2 L MCH 23.3 L MCHC 30.6 L RDW 20.8 H Plt Count 316 MPV 8.6 Absolute Neuts (auto) 6.6 Neutrophils % 73.3 Lymphocytes % 13.4 D Monocytes % 9.4 Eosinophils % 3.1 D Basophils % 0.8 Nucleated RBC % 0 Platelet Estimate Platelet Comment Anisocytosis Microcytosis PT with INR INR PTT (Actin FS) Sodium Potassium Chloride Carbon Dioxide Anion Gap BUN Creatinine Creat Clearance w eGFR Random Glucose Calcium Phosphorus Magnesium Total Bilirubin AST ALT Alkaline Phosphatase Creatine Kinase Troponin I 0.67 H* 0.53 H B-Natriuretic Peptide Total Protein Albumin Blood Type Antibody Screen 07/04/18 07/04/18 07/04/18 05:30 05:30 05:30 WBC RBC Hgb Hct MCV MCH MCHC RDW Plt Count MPV Absolute Neuts (auto) Neutrophils % Lymphocytes % Monocytes % Eosinophils % Basophils % Nucleated RBC % Platelet Estimate Platelet Comment Anisocytosis Microcytosis PT with INR 12.40 INR 1.05 PTT (Actin FS) 45.0 H Sodium 150 H Potassium 4.4 Chloride 120 H Carbon Dioxide 19 L Anion Gap 11 BUN 23 H Creatinine 1.5 H Creat Clearance w eGFR 44.07 Random Glucose 102 Calcium 8.3 L Phosphorus 4.1 Magnesium 2.2 Total Bilirubin AST ALT Alkaline Phosphatase Creatine Kinase Troponin I B-Natriuretic Peptide 13226.9 H Total Protein Albumin Blood Type A POSITIVE Antibody Screen Negative 07/04/18 09:30 WBC RBC Hgb Hct MCV MCH MCHC RDW Plt Count MPV Absolute Neuts (auto) Neutrophils % Lymphocytes % Monocytes % Eosinophils % Basophils % Nucleated RBC % Platelet Estimate Platelet Comment Anisocytosis Microcytosis PT with INR INR PTT (Actin FS) Sodium Potassium Chloride Carbon Dioxide Anion Gap BUN Creatinine Creat Clearance w eGFR Random Glucose Calcium Phosphorus Magnesium Total Bilirubin AST ALT Alkaline Phosphatase Creatine Kinase Troponin I B-Natriuretic Peptide Total Protein Albumin Blood Type A POSITIVE Antibody Screen Active Medications Generic Name Dose Route Start Last Admin Trade Name Freq PRN Reason Stop Dose Admin Heparin Sodium (Porcine) 1,000 unit 07/03/18 22:43 07/04/18 11:05 Heparin - IVPUSH 1,000 unit PRN PRN Administration Heparin Heparin Sodium (Porcine) 5,000 unit 07/03/18 22:43 Heparin - IVPUSH PRN PRN Heparin Heparin Sodium/Dextrose 25,000 units in 500 mls @ 20 mls/hr 07/04/18 10:00 11:05 Heparin Infusion - IVPB 1,000 units/hr TITR MONICA 20 mls/hr Administration Protocol 1,000 UNITS/HR Dextrose 1,000 mls @ 42 mls/hr 07/04/18 13:15 D5w - IV Q23H MONICA Metoprolol Tartrate 25 mg 07/04/18 06:00 07/04/18 05:23 Lopressor - PO 25 mg TID MONICA Administration ASSESSMENT/PLAN: 88 y/o M w/ PMHx A-fib, CAD w/ stents x 2, 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 No CP, no neurologic symptoms. Troponemia to 0.61, no ST changes but interval development of t-wave inversions on EKG. #NSTEMI -presumptive NSTEMI until proven otherwise -trend troponins,latest trop being 0.53 -cardiology consulted -per cardiology: -metoprolol tartrate 25 q8h for rate control -IV heparin infusion -atorvastatin 80 -ASA -patient has been discontinued from eliquis since last hospitalization -repeat ECHO showing mild to moderately decreased LV systolic function with mild global hypokinesis of the LV #CVA -HCT negative, neurologic exam unchanged -neuro checks q6h #Afib/CAD/HTN/HLD -treat as per cardiology recommendations #ALBERTA -heparin infusion provides fluid resuscitation -otherwise treat cardiac issues at this time #FEN -no IVF -monitor and replete electrolytes -dysphagia puree w/ nectar liquid per previous S/S assessment #PPx -DVT: heparin infusion -GI: not indicated Problem List - Problems (1) Elevated troponin Code(s): R74.8 - ABNORMAL LEVELS OF OTHER SERUM ENZYMES (2) Syncope Code(s): R55 - SYNCOPE AND COLLAPSE Qualifiers: Syncope type: unspecified Qualified Code(s): R55 - Syncope and collapse (3) CKD (chronic kidney disease) Code(s): N18.9 - CHRONIC KIDNEY DISEASE, UNSPECIFIED Visit type - Emergency Visit Emergency Visit: Yes ED Registration Date: 07/04/18 Care time: The patient presented to the Emergency Department on the above date and was hospitalized for further evaluation of their emergent condition. - New Patient This patient is new to me today: Yes Date on this admission: 07/04/18 - Critical Care Critical Care patient: No
--- NOTE | 2018-07-04 17:01 | PN ---
Teaching Attending Note Name of Resident: Loan Stockton ATTENDING PHYSICIAN STATEMENT I saw and evaluated the patient. I reviewed the resident's note and discussed the case with the resident. I agree with the resident's findings and plan as documented with exceptions below. SUBJECTIVE: Patient seen and examined. Denies any chest pain, palpitations, dyspnea, or dizziness. no pain currently, oriented to self and place. OBJECTIVE: Vital Signs Period Temp Pulse Resp BP Sys/Canales Pulse Ox Last 24 Hr 97.3 F-98.5 F 66-79 16-20 114-145/60-84 90-99 Intake & Output 07/01/18 07/02/18 07/03/18 07/04/18 23:59 23:59 23:59 23:59 Intake Total 704 Balance 704 Weight 141 lb 141 lb General: sitting in bed, mildly tachypneic Neck: soft, mild neck vein distension Chest: distant breath sounds consistent with emphysema, no rales or wheezing appreciated, positive air entry Abdomen:soft, NT, ND Extremities: no edema Home Medications Medication Instructions Recorded Cholecalciferol (Vitamin D3) 1,000 unit PO DAILY 07/06/17 [D3-2000] Docusate Sodium [Stool Softener] 100 mg PO BID 07/06/17 Simvastatin 20 mg PO HS 07/06/17 Labetalol HCl 100 mg PO BID #60 tablet 02/08/18 Miscellaneous Drug Not In Syst 1 each ASDIR #1 misc 02/08/18 [Outpatient Lab Test] Polyethylene Glycol 3350 [Miralax 17 gm PO BID #1 bottle 02/08/18 119 gm Btl -] Sennosides/Docusate Sodium [Senna 1 each PO DAILY #7 tablet 02/08/18 Laxative Tablet] Zinc Oxide 1 applic TP BID #1 tube 02/08/18 Active Medications Heparin Sodium (Porcine) (Heparin -) 1,000 unit IVPUSH PRN PRN PRN Reason: Heparin Last Admin: 07/04/18 11:05 Dose: 1,000 unit Heparin Sodium (Porcine) (Heparin -) 5,000 unit IVPUSH PRN PRN PRN Reason: Heparin Heparin Sodium/Dextrose (Heparin Infusion -) 25,000 units in 500 mls @ 20 mls/ hr IVPB TITR MONICA; Protocol Last Admin: 07/04/18 11:05 Dose: 1,000 units/hr, 20 mls/hr Dextrose (D5w -) 1,000 mls @ 42 mls/hr IV Q23H [facility] Last Admin: 07/04/18 15:29 Dose: 42 mls/hr Metoprolol Tartrate (Lopressor -) 25 mg PO TID [facility] Last Admin: 07/04/18 15:29 Dose: 25 mg Laboratory Results - last 24 hr 07/03/18 07/03/18 07/04/18 19:30 19:30 01:30 WBC 11.7 H RBC 4.56 Hgb 11.2 L Hct 34.1 L D MCV 74.7 L MCH 24.6 L MCHC 32.9 RDW 20.8 H Plt Count 388 MPV 8.4 Absolute Neuts (auto) 9.5 H Neutrophils % 80.8 D Lymphocytes % 7.6 L D Monocytes % 10.5 H Eosinophils % 0.5 D Basophils % 0.6 Nucleated RBC % 0 Platelet Estimate Increased Platelet Comment No clumping noted Anisocytosis 2+ Microcytosis 1+ PT with INR INR PTT (Actin FS) 29.4 Sodium 148 H Potassium 4.2 Chloride 118 H Carbon Dioxide 19 L Anion Gap 12 BUN 24 H Creatinine 1.8 H Creat Clearance w eGFR 35.70 Random Glucose 144 H Calcium 8.5 Phosphorus Magnesium Total Bilirubin 0.2 AST 16 ALT 12 L Alkaline Phosphatase 78 Creatine Kinase 109 Troponin I 0.61 H* B-Natriuretic Peptide Total Protein 6.4 Albumin 2.7 L Blood Type Antibody Screen 07/04/18 07/04/18 07/04/18 01:30 05:30 05:30 WBC 9.0 RBC 4.35 Hgb 10.1 L Hct 33.1 L MCV 76.2 L MCH 23.3 L MCHC 30.6 L RDW 20.8 H Plt Count 316 MPV 8.6 Absolute Neuts (auto) 6.6 Neutrophils % 73.3 Lymphocytes % 13.4 D Monocytes % 9.4 Eosinophils % 3.1 D Basophils % 0.8 Nucleated RBC % 0 Platelet Estimate Platelet Comment Anisocytosis Microcytosis PT with INR INR PTT (Actin FS) Sodium Potassium Chloride Carbon Dioxide Anion Gap BUN Creatinine Creat Clearance w eGFR Random Glucose Calcium Phosphorus Magnesium Total Bilirubin AST ALT Alkaline Phosphatase Creatine Kinase Troponin I 0.67 H* 0.53 H B-Natriuretic Peptide Total Protein Albumin Blood Type Antibody Screen 07/04/18 07/04/18 07/04/18 05:30 05:30 05:30 WBC RBC Hgb Hct MCV MCH MCHC RDW Plt Count MPV Absolute Neuts (auto) Neutrophils % Lymphocytes % Monocytes % Eosinophils % Basophils % Nucleated RBC % Platelet Estimate Platelet Comment Anisocytosis Microcytosis PT with INR 12.40 INR 1.05 PTT (Actin FS) 45.0 H Sodium 150 H Potassium 4.4 Chloride 120 H Carbon Dioxide 19 L Anion Gap 11 BUN 23 H Creatinine 1.5 H Creat Clearance w eGFR 44.07 Random Glucose 102 Calcium 8.3 L Phosphorus 4.1 Magnesium 2.2 Total Bilirubin AST ALT Alkaline Phosphatase Creatine Kinase Troponin I B-Natriuretic Peptide 43566.9 H Total Protein Albumin Blood Type A POSITIVE Antibody Screen Negative 07/04/18 09:30 WBC RBC Hgb Hct MCV MCH MCHC RDW Plt Count MPV Absolute Neuts (auto) Neutrophils % Lymphocytes % Monocytes % Eosinophils % Basophils % Nucleated RBC % Platelet Estimate Platelet Comment Anisocytosis Microcytosis PT with INR INR PTT (Actin FS) Sodium Potassium Chloride Carbon Dioxide Anion Gap BUN Creatinine Creat Clearance w eGFR Random Glucose Calcium Phosphorus Magnesium Total Bilirubin AST ALT Alkaline Phosphatase Creatine Kinase Troponin I B-Natriuretic Peptide Total Protein Albumin Blood Type A POSITIVE Antibody Screen 2D echo results reviewed CT brain chronic right cerebral infarcts ASSESSMENT AND PLAN: 88 y/o M w/ PMHx A-fib (*eliquis recently discontinued*), CAD w/ stents x 2, 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 -Syncope, ?vasovagal compounded by dehydration/hypovolumia, less likely cardiac , low suspicion for PE -NSTEMi, ?type II from demand from above vs ACS (EKG with poor R wave progression compared to 01/2018) -New Mild to moderate LV dysfunction/Global hypokinesis, ?from CAD/silent [place] -ALBERTA, ?hypovolumia -Hypernatremia, ?hpyovlumic -Elevated BNP, clinical exam non consistent with volume overload -CAD s/p PCI x 2 -h/o CVA with left residual hemiparesis Plan: Cardiology input appreciated. Heparin drip/metoprolol. New LV dysfunction on 2D echo. Follow up with cardiology for additional testing. Caution with hydration, monitor volume status closely. Not taking meds since 2017. Start lipitor 40 mg hs, check lipid panel. Renal consult, input appreciated. Hypotonic fluids, monitor Na levels. Strict I/os and daily weights. DVTPPX on heparin drip will need PT eval and CM consult for d/c planning when medical issues improve. Plan discussed with patient, all questions answered.
[2018-07-04] MEDS: ATORVASTATIN CA 40 MG TABLET (FP) PO SCH (21:40)
[2018-07-04 23:37] LABS: URINE APPEARANCE CLEAR; URINE BILIRUBIN NEGATIVE (<2.0 mg/dL); URINE COLOR YELLOW; URINE GLUCOSE (UA) NEGATIVE (NEGATIVE); URINE KETONE NEGATIVE (NEGATIVE); URINE LEUK ESTERASE NEGATIVE (NEGATIVE); URINE NITRITE NEGATIVE (NEGATIVE); URINE PROTEIN 1+ (NEGATIVE); URINE UROBILINOGEN NEGATIVE mg/dL (0.2-1.0)
[2018-07-05 00:12] LABS: URINE MUCUS RARE
[2018-07-05] MEDS: METOPROLOL TARTRATE 25 MG TABLET (FP) PO SCH ×3 (06:33→22:03)
[2018-07-05 06:58] LABS: HEMATOCRIT 31.1 % (35.4-49); HEMOGLOBIN 9.5 GM/dL (11.7-16.9); MCH 23.3 pg (25.7-33.7); MCHC 30.6 g/dl (32.0-35.9); MEAN CELL VOLUME 76.2 fl (80-96); MEAN PLT VOLUME 8.7 fl (7.5-11.1); PLATELET COUNT 311 K/MM3 (134-434); RBC 4.09 M/mm3 (4.00-5.60); RDW 20.4 % (11.9-15.9); WHITE BLOOD COUNT 9.5 K/mm3 (4.0-10.0)
[2018-07-05 07:38] LABS: ANION GAP 8 MMOL/L (8-16); BLOOD UREA NITROGEN 22 mg/dL (7-18); CALCIUM 8.1 mg/dL (8.5-10.1); CHLORIDE 114 mmol/L (98-107); CO2 22 mmol/L (21-32); CREATININE 1.4 mg/dL (0.55-1.3); GLUCOSE,RANDOM 108 mg/dL (74-106); MAGNESIUM 2.1 mg/dL (1.8-2.4); PHOSPHOROUS 3.8 mg/dL (2.5-4.9); POTASSIUM 4.1 mmol/L (3.5-5.1); SODIUM 145 mmol/L (136-145)
--- NOTE | 2018-07-05 08:01 | PN ---
Teaching Attending Note Name of Resident: Loan Stockton ATTENDING PHYSICIAN STATEMENT I saw and evaluated the patient. I reviewed the resident's note and discussed the case with the resident. I agree with the resident's findings and plan as documented with exceptions below. SUBJECTIVE: Patient seen and examined. Denies any pain or dyspnea, ROS, limited by dementia OBJECTIVE: Vital Signs Period Temp Pulse Resp BP Sys/Canales Pulse Ox Last 24 Hr 97.3 F-98.1 F 66-79 16-20 134-145/72-83 90-99 Intake & Output 07/02/18 07/03/18 07/04/18 07/05/18 23:59 23:59 23:59 23:59 Intake Total 1174 820 Balance 1174 820 Weight 141 lb 141 lb General: sitting in bed, tachypneic chest: decreased air entry all over, no wheezing Abdomen:soft, NT, nD Extremities: no edema Home Medications Medication Instructions Recorded Cholecalciferol (Vitamin D3) 1,000 unit PO DAILY 07/06/17 [D3-2000] Docusate Sodium [Stool Softener] 100 mg PO BID 07/06/17 Simvastatin 20 mg PO HS 07/06/17 Labetalol HCl 100 mg PO BID #60 tablet 02/08/18 Miscellaneous Drug Not In Syst 1 each ASDIR #1 misc 02/08/18 [Outpatient Lab Test] Polyethylene Glycol 3350 [Miralax 17 gm PO BID #1 bottle 02/08/18 119 gm Btl -] Sennosides/Docusate Sodium [Senna 1 each PO DAILY #7 tablet 02/08/18 Laxative Tablet] Zinc Oxide 1 applic TP BID #1 tube 02/08/18 Active Medications Atorvastatin Calcium (Lipitor -) 40 mg PO HS [facility] Last Admin: 07/04/18 21:40 Dose: 40 mg Heparin Sodium (Porcine) (Heparin -) 1,000 unit IVPUSH PRN PRN PRN Reason: Heparin Last Admin: 07/04/18 11:05 Dose: 1,000 unit Heparin Sodium (Porcine) (Heparin -) 5,000 unit IVPUSH PRN PRN PRN Reason: Heparin Heparin Sodium/Dextrose (Heparin Infusion -) 25,000 units in 500 mls @ 20 mls/ hr IVPB TITR MONICA; Protocol Last Admin: 07/04/18 11:05 Dose: 1,000 units/hr, 20 mls/hr Dextrose (D5w -) 1,000 mls @ 42 mls/hr IV Q23H [facility] Last Admin: 07/04/18 15:29 Dose: 42 mls/hr Metoprolol Tartrate (Lopressor -) 25 mg PO TID [facility] Last Admin: 07/05/18 06:33 Dose: 25 mg Laboratory Results - last 24 hr 07/03/18 07/04/18 07/04/18 23:20 05:30 05:30 WBC 9.0 RBC 4.35 Hgb 10.1 L Hct 33.1 L MCV 76.2 L MCH 23.3 L MCHC 30.6 L RDW 20.8 H Plt Count 316 MPV 8.6 Absolute Neuts (auto) 6.6 Neutrophils % 73.3 Lymphocytes % 13.4 D Monocytes % 9.4 Eosinophils % 3.1 D Basophils % 0.8 Nucleated RBC % 0 PTT (Actin FS) Sodium 150 H Potassium 4.4 Chloride 120 H Carbon Dioxide 19 L Anion Gap 11 BUN 23 H Creatinine 1.5 H Creat Clearance w eGFR 44.07 Random Glucose 102 Calcium 8.3 L Phosphorus 4.1 Magnesium 2.2 Urine Color Yellow Urine Appearance Clear Urine pH 5.0 D Ur Specific [place] 1.027 Urine Protein 1+ H Urine Glucose (UA) Negative Urine Ketones Negative Urine Blood Negative Urine Nitrite Negative Urine Bilirubin Negative Urine Urobilinogen Negative Ur Leukocyte Esterase Negative Urine WBC (Auto) 3 Urine RBC (Auto) 3 Urine Mucus Rare Blood Type Antibody Screen 07/04/18 07/04/18 07/04/18 05:30 09:30 16:00 WBC RBC Hgb Hct MCV MCH MCHC RDW Plt Count MPV Absolute Neuts (auto) Neutrophils % Lymphocytes % Monocytes % Eosinophils % Basophils % Nucleated RBC % PTT (Actin FS) 65.2 H Sodium Potassium Chloride Carbon Dioxide Anion Gap BUN Creatinine Creat Clearance w eGFR Random Glucose Calcium Phosphorus Magnesium Urine Color Urine Appearance Urine pH Ur Specific [place] Urine Protein Urine Glucose (UA) Urine Ketones Urine Blood Urine Nitrite Urine Bilirubin Urine Urobilinogen Ur Leukocyte Esterase Urine WBC (Auto) Urine RBC (Auto) Urine Mucus Blood Type A POSITIVE A POSITIVE Antibody Screen Negative 07/05/18 07/05/18 05:30 05:30 WBC RBC Hgb Hct MCV MCH MCHC RDW Plt Count MPV Absolute Neuts (auto) Neutrophils % Lymphocytes % Monocytes % Eosinophils % Basophils % Nucleated RBC % PTT (Actin FS) 70.4 H Sodium 145 Potassium 4.1 Chloride 114 H Carbon Dioxide 22 Anion Gap 8 BUN 22 H Creatinine 1.4 H Creat Clearance w eGFR 47.72 Random Glucose 108 H Calcium 8.1 L Phosphorus 3.8 Magnesium 2.1 Urine Color Urine Appearance Urine pH Ur Specific [place] Urine Protein Urine Glucose (UA) Urine Ketones Urine Blood Urine Nitrite Urine Bilirubin Urine Urobilinogen Ur Leukocyte Esterase Urine WBC (Auto) Urine RBC (Auto) Urine Mucus Blood Type Antibody Screen 2d echo results reviewed ASSESSMENT AND PLAN: 88 y/o M w/ PMHx A-fib (*eliquis recently discontinued*), CAD w/ stents x 2, 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 -Acute on ?chronic hypoxic respiratory distress, ?acute copd exacerbation (>60 pack year smoking history)+/- Acute systolic HF exacerbation (new global hypokinesis) -Syncope, ?vasovagal compounded by dehydration/hypovolumia, less likely cardiac , low suspicion for PE -NSTEMi, ?type II from demand from above vs ACS (EKG with poor R wave progression compared to 01/2018) -New Mild to moderate LV dysfunction/Global hypokinesis, ?from CAD/silent [place] -ALBERTA, ?hypovolumia -Hypernatremia, ?hypovolumic -Elevated BNP, clinical exam non consistent with volume overload -CAD s/p PCI x 2 -h/o CVA with left residual hemiparesis Plan: Trial with nebs/Solumedrol 60 mg IV x 1. CT chest noted. Hold off on IVF, lasix 20 mg IV x 1. Strict I/Os. Daily weights. Encourage free water intake, discussed with nursing. Suspicion for PE low based on lung exam and CT findings. Trial as above, patient already on AC and would avoid CTA PE given ALBERTA. Prior lung clips, ?History lung ca/COPD. Retrieve more info from PCP. Pulmonary consult. Cardiology input appreciated. Heparin drip/metoprolol. New LV dysfunction on 2D echo. Follow up with cardiology for additional testing. Not taking meds since 2017. Start lipitor 40 mg hs, check lipid panel. Strict I/os and daily weights. DVTPPX on heparin drip will need PT eval and CM consult for d/c planning when medical issues improve. Plan discussed with patient, all questions answered. Care co-ordinated with Dr. Rosa, Dr. Cramer and nursing.
[2018-07-05 08:15] LABS: CHOLESTEROL 112 mg/dL (50-200); HDL CHOLESTEROL 60 mg/dL (40-60); TRIGLYCERIDES 60 mg/dL (0-150)
--- NOTE | 2018-07-05 08:51 | PN ---
Physical Exam: SUBJECTIVE: Patient seen and examined at bedside. patient was tachypneic throghout the night even with the 4L of 02 on. however he denies any CP/SOB/N/V fevers or chills OBJECTIVE: Vital Signs Period Temp Pulse Resp BP Sys/Canales Pulse Ox Last 24 Hr 97.3 F-98.1 F 69-79 18-20 134-145/72-83 90-98 GENERAL: The patient is awake, alert, in no acute distress. HEAD: Normal with no signs of trauma. EYES: no scleral icterus. NECK: slight JVD LUNGS: diminished breath sounds B/L; no rales, rhonchi or wheezing. HEART:irregularly irregular, S1, S2 without murmur, rub or gallop. ABDOMEN: Soft, nontender, nondistended, normoactive bowel sounds, no guarding, no rebound, no hepatosplenomegaly, no masses. EXTREMITIES: 2+ pulses, warm, well-perfused, no edema. NEUROLOGICAL:dysarthria at baseline with resiudal left sided weakness from previous CVA SKIN: Warm, dry, normal turgor, no rashes or lesions noted Laboratory Results - last 24 hr 07/03/18 07/04/18 07/04/18 23:20 05:30 09:30 WBC RBC Hgb Hct MCV MCH MCHC RDW Plt Count MPV PTT (Actin FS) Sodium 150 H Potassium 4.4 Chloride 120 H Carbon Dioxide 19 L Anion Gap 11 BUN 23 H Creatinine 1.5 H Creat Clearance w eGFR 44.07 Random Glucose 102 Calcium 8.3 L Phosphorus 4.1 Magnesium 2.2 Triglycerides Cholesterol Total LDL Cholesterol HDL Cholesterol Urine Color Yellow Urine Appearance Clear Urine pH 5.0 D Ur Specific [place] 1.027 Urine Protein 1+ H Urine Glucose (UA) Negative Urine Ketones Negative Urine Blood Negative Urine Nitrite Negative Urine Bilirubin Negative Urine Urobilinogen Negative Ur Leukocyte Esterase Negative Urine WBC (Auto) 3 Urine RBC (Auto) 3 Urine Mucus Rare Blood Type A POSITIVE 07/04/18 07/05/18 07/05/18 16:00 05:30 05:30 WBC 9.5 RBC 4.09 Hgb 9.5 L Hct 31.1 L MCV 76.2 L MCH 23.3 L MCHC 30.6 L RDW 20.4 H Plt Count 311 MPV 8.7 PTT (Actin FS) 65.2 H 70.4 H Sodium Potassium Chloride Carbon Dioxide Anion Gap BUN Creatinine Creat Clearance w eGFR Random Glucose Calcium Phosphorus Magnesium Triglycerides Cholesterol Total LDL Cholesterol HDL Cholesterol Urine Color Urine Appearance Urine pH Ur Specific [place] Urine Protein Urine Glucose (UA) Urine Ketones Urine Blood Urine Nitrite Urine Bilirubin Urine Urobilinogen Ur Leukocyte Esterase Urine WBC (Auto) Urine RBC (Auto) Urine Mucus Blood Type 07/05/18 07/05/18 05:30 05:30 WBC RBC Hgb Hct MCV MCH MCHC RDW Plt Count MPV PTT (Actin FS) Sodium 145 Potassium 4.1 Chloride 114 H Carbon Dioxide 22 Anion Gap 8 BUN 22 H Creatinine 1.4 H Creat Clearance w eGFR 47.72 Random Glucose 108 H Calcium 8.1 L Phosphorus 3.8 Magnesium 2.1 Triglycerides 60 Cholesterol 112 Total LDL Cholesterol 43 HDL Cholesterol 60 Urine Color Urine Appearance Urine pH Ur Specific [place] Urine Protein Urine Glucose (UA) Urine Ketones Urine Blood Urine Nitrite Urine Bilirubin Urine Urobilinogen Ur Leukocyte Esterase Urine WBC (Auto) Urine RBC (Auto) Urine Mucus Blood Type Active Medications Generic Name Dose Route Start Last Admin Trade Name Freq PRN Reason Stop Dose Admin Atorvastatin Calcium 40 mg 07/04/18 22:00 07/04/18 21:40 Lipitor - PO 40 mg HS MONICA Administration Heparin Sodium (Porcine) 1,000 unit 07/03/18 22:43 07/04/18 11:05 Heparin - IVPUSH 1,000 unit PRN PRN Administration Heparin Heparin Sodium (Porcine) 5,000 unit 07/03/18 22:43 Heparin - IVPUSH PRN PRN Heparin Heparin Sodium/Dextrose 25,000 units in 500 mls @ 20 mls/hr 07/04/18 10:00 11:05 Heparin Infusion - IVPB 1,000 units/hr TITR MONICA 20 mls/hr Administration Protocol 1,000 UNITS/HR Dextrose 1,000 mls @ 42 mls/hr 07/04/18 13:15 07/04/18 15:29 D5w - IV 42 mls/hr Q23H MONICA Administration Metoprolol Tartrate 25 mg 07/04/18 06:00 07/05/18 06:33 Lopressor - PO 25 mg TID MONICA Administration ASSESSMENT/PLAN: 88 y/o M w/ PMHx A-fib, CAD w/ stents x 2, 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 No CP, no neurologic symptoms. Troponemia to 0.61, no ST changes but interval development of t-wave inversions on EKG. #NSTEMI -presumptive NSTEMI until proven otherwise -trend troponins,latest trop being 0.53 -cardiology consulted -per cardiology: -metoprolol tartrate 25 q8h for rate control -IV heparin infusion -atorvastatin 40 -ASA -patient has been discontinued from eliquis since last hospitalization -repeat ECHO showing mild to moderately decreased LV systolic function with mild global hypokinesis of the LV #COPD -CT chest pending -duonebs q6 standing -given IV solumedrol 60 once #CVA -HCT negative, neurologic exam unchanged -neuro checks q6h #Afib/CAD/HTN/HLD -treat as per cardiology recommendations #ALBERTA -heparin infusion provides fluid resuscitation -otherwise treat cardiac issues at this time #FEN -no IVF -monitor and replete electrolytes -dysphagia puree w/ nectar liquid per previous S/S assessment #PPx -DVT: heparin infusion -GI: not indicated Problem List - Problems (1) Elevated troponin Code(s): R74.8 - ABNORMAL LEVELS OF OTHER SERUM ENZYMES (2) Syncope Code(s): R55 - SYNCOPE AND COLLAPSE Qualifiers: Syncope type: unspecified Qualified Code(s): R55 - Syncope and collapse (3) CKD (chronic kidney disease) Code(s): N18.9 - CHRONIC KIDNEY DISEASE, UNSPECIFIED Visit type - Emergency Visit Emergency Visit: Yes ED Registration Date: 07/04/18 Care time: The patient presented to the Emergency Department on the above date and was hospitalized for further evaluation of their emergent condition. - New Patient This patient is new to me today: No - Critical Care Critical Care patient: No
[2018-07-05] MEDS: HEPARIN INFUSION - 25,000 UNITS/500 ML INFUS.BAG IVPB SCH (09:42)
[2018-07-05] MEDS ORDERED: ASPIRIN 81 MG CHEWABLE TABLETS PO SCH (10:00)
[2018-07-05 10:15] LABS: ARTERIAL BLD GAS O2 SATURATION 94.9 % (90-98.9); ARTERIAL BLOOD GAS BASE EXCESS -3.7 meq/l (-2-2); ARTERIAL BLOOD GAS PCO2 30.2 mmHg (35-45); ARTERIAL BLOOD GAS PO2 81.8 mmHg (68-100); ARTERIAL BLOOD GAS pH 7.42 (7.35-7.45)
[2018-07-05] MEDS ORDERED: methylPREDNISolone NA SUCC 40 MG/1 ML VIAL IVPUSH ONE (10:15)
[2018-07-05 10:34] LABS: ALLENS TEST POSITIVE
[2018-07-05] MEDS: ALBUTEROL SO4 2.5/IPRATROPIUM 0.5 INH SOL 3 ML VIAL.NEB. NEB SCH ×3 (11:25→20:45)
[2018-07-05] MEDS ORDERED: FUROSEMIDE 40 MG/4 ML INJECTABLE VIAL IVPUSH ONE (12:33)
--- NOTE | 2018-07-05 13:54 | CON.PULM ---
Consult Consult Specialty:: PULMONARY Referred by:: Dr. Turner Reason for Consultation:: shortness of breath - History of Present Illness Chief Complaint: syncope History of Present Illness: 88yo male with h/o HTN, hyperlipidemia, atrial fibrillation, h/o CVA, CAD who was admitted with syncopal episodes with straining. Found to have positive troponins and in renal failure. Echocardiogram showing mildly reduced LVEF. Pulmonary consulted due to tachypnea although pt denies shortness of breath. He denies chronic cough or wheezing. He is maintained on inhalers at home but does not recall. He is a former long time smoker 2 PPD. Worked for a [email or web address]. CT chest done which showed changes consistent with COPD and RLL atelectasis vs infiltrate. 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 Cardio/Vascular: Yes: AFIB, HTN, Hyperlipdemia Renal/: Yes: Renal Inusuff - Alcohol/Substance Use Hx Alcohol Use: No History of Substance Use: reports: None - Smoking History Smoking history: Former smoker Have you smoked in the past 12 months: Yes If you are a former smoker, when did you quit?: 30yrs - Social History ADL: Independent Occupation: Retired: Worked for [employer] History of Recent Travel: No Home Medications - Allergies Allergies/Adverse Reactions: Allergies Allergy/AdvReac Type Severity Reaction Status Date / Time No Known Allergies Allergy Verified 02/07/18 05:00 - Home Medications Home Medications: Ambulatory Orders Cholecalciferol (Vitamin D3) [D3-2000] 1,000 unit PO DAILY 07/06/17 Docusate Sodium [Stool Softener] 100 mg PO BID 07/06/17 Simvastatin 20 mg PO HS 07/06/17 Labetalol HCl 100 mg PO BID #60 tablet 02/08/18 Miscellaneous Drug Not In Syst [Outpatient Lab Test] 1 each ASDIR #1 misc 07/17 Polyethylene Glycol 3350 [Miralax 119 gm Btl -] 17 gm PO BID #1 bottle 02/08/18 Sennosides/Docusate Sodium [Senna Laxative Tablet] 1 each PO DAILY #7 tablet 07/17 Zinc Oxide 1 applic TP BID #1 tube 02/08/18 Review of Systems - Review of Systems Constitutional: denies: Chills, Fever, Weakness Eyes: denies: Recent Change in Vision HENT: denies: Nasal Congestion, Throat Pain Neck: denies: Stiffness, Tenderness Cardiovascular: denies: Chest Pain, Palpitations, Shortness of Breath Respiratory: denies: Cough, Hemoptysis, Wheezing Gastrointestinal: denies: Abdominal Pain, Nausea, Vomiting Genitourinary: denies: Dysuria, Hematuria Neurological: denies: Dizziness, Headache Physical Exam Vital Sings: Vital Signs Temperature 97.9 F 07/05/18 09:49 Pulse Rate 79 07/05/18 09:49 Respiratory Rate 20 07/05/18 09:49 Blood Pressure 154/89 07/05/18 09:49 O2 Sat by Pulse Oximetry (%) 98 07/05/18 09:00 Constitutional: Yes: Mild Distress Eyes: Yes: Conjunctiva Clear, EOM Intact HENT: Yes: Atraumatic, Normocephalic Neck: Yes: Supple, Trachea Midline Cardiovascular: Yes: Regular Rate and Rhythm Respiratory: Yes: Diminished (distant breath sounds) ...Clubbing: No Gastrointestinal: Yes: Normal Bowel Sounds, Soft. No: Tenderness Edema: No Labs: CBC, BMP 07/05/18 05:30 07/05/18 05:30 ABG Results ABG pH 7.42 (7.35-7.45) 07/05/18 10:20 ABG pCO2 at Pt Temp 30.2 mmHg (35-45) L 07/05/18 10:20 ABG pO2 at Pt Temp 81.8 mmHg (68-100) 07/05/18 10:20 ABG HCO3 19.3 meq/L (22-26) L 07/05/18 10:20 ABG O2 Sat (Measured) 94.9 % (90-98.9) 07/05/18 10:20 ABG O2 Content 16.4 % vol (15-22) 07/05/18 10:20 ABG Base Excess -3.7 meq/l (-2-2) L 07/05/18 10:20 Imaging - Results Chest X-ray: Report Reviewed, Image Reviewed Cat Scan: Report Reviewed, Image Reviewed (RLL atelectasis vs infiltrate) Problem List - Problems (1) Syncope Code(s): R55 - SYNCOPE AND COLLAPSE Qualifiers: Syncope type: unspecified Qualified Code(s): R55 - Syncope and collapse (2) Elevated troponin Code(s): R74.8 - ABNORMAL LEVELS OF OTHER SERUM ENZYMES (3) CKD (chronic kidney disease) Code(s): N18.9 - CHRONIC KIDNEY DISEASE, UNSPECIFIED (4) HLD (hyperlipidemia) Code(s): E78.5 - HYPERLIPIDEMIA, UNSPECIFIED (5) HTN (hypertension) Code(s): I10 - ESSENTIAL (PRIMARY) HYPERTENSION Assessment/Plan Shortness of breath r/o Acute COPD Exacerbation Favor Atelectasis > Pneumonia Acute on Chronic Renal Failure Metabolic Acidosis LV Systolic/Diastolic Dysfunction Atrial Fibrillation CAD h/o CVA HTN - ABG consistent with mild respiratory alkalosis and metabolic acidosis so his tachypnea may be result of respiratory compensation - pt with prolonged expiratory phase, likely has underlying COPD so may not be able to comfortably compensate with tachypnea - agree with trial of medrol - inhaled bronchodilators standing and PRN - taper O2 to keep Spo2 >90%, took him off nasal cannula and lowest desaturation was 93% - rate control - outpt PFTs if able - DVT prophylaxis Thank you for this consult Jesse England MD
[2018-07-05] MEDS ORDERED: ALBUTEROL SO4 0.083% IH SOL 2.5 MG/3 ML VIAL.NEB. NEB PRN (14:02)
--- NOTE | 2018-07-05 15:31 | PN ---
Progress Note, Physician History of Present Illness: Pt seen and examined at bedside. He was short of breath and tachypneic this morning. He received respiratory treatments, lasix and steroids. - Current Medication List Current Medications: Active Medications Albuterol Sulfate (Ventolin 0.083% Nebulizer Soln -) 1 amp NEB Q4H PRN PRN Reason: SHORT OF BREATH/WHEEZING Albuterol/Ipratropium (Duoneb -) 1 amp NEB RQID MONICA Last Admin: 07/05/18 11:25 Dose: 1 amp Atorvastatin Calcium (Lipitor -) 40 mg PO HS MONICA Last Admin: 07/04/18 21:40 Dose: 40 mg Heparin Sodium (Porcine) (Heparin -) 1,000 unit IVPUSH PRN PRN PRN Reason: Heparin Last Admin: 07/04/18 11:05 Dose: 1,000 unit Heparin Sodium (Porcine) (Heparin -) 5,000 unit IVPUSH PRN PRN PRN Reason: Heparin Heparin Sodium/Dextrose (Heparin Infusion -) 25,000 units in 500 mls @ 20 mls/ hr IVPB TITR MONICA; Protocol Last Admin: 07/05/18 09:42 Dose: 1,000 units/hr, 20 mls/hr Methylprednisolone Sodium Succinate (Solu-Medrol -) 40 mg IVPUSH Q8H-IV MONICA Metoprolol Tartrate (Lopressor -) 25 mg PO TID [facility] Last Admin: 07/05/18 14:23 Dose: 25 mg - Objective Vital Signs: Vital Signs Temperature 98.5 F 07/05/18 14:00 Pulse Rate 81 07/05/18 14:00 Respiratory Rate 20 07/05/18 14:00 Blood Pressure 152/72 07/05/18 14:00 O2 Sat by Pulse Oximetry (%) 98 07/05/18 09:00 Constitutional: Yes: Calm Eyes: Yes: Conjunctiva Clear HENT: Yes: Atraumatic Cardiovascular: Yes: S1, S2 Respiratory: Yes: On Nasal O2 Gastrointestinal: Yes: Soft Genitourinary: Yes: WNL Edema: No Neurological: Yes: Oriented, Pre-Existing Deficit Psychiatric: Yes: Oriented Labs: CBC, BMP 07/05/18 05:30 07/05/18 05:30 INR, PTT INR 1.05 (0.83-1.09) 07/04/18 05:30 Problem List - Problems (1) Hypernatremia Code(s): E87.0 - HYPEROSMOLALITY AND HYPERNATREMIA (2) Elevated troponin Code(s): R74.8 - ABNORMAL LEVELS OF OTHER SERUM ENZYMES (3) Syncope Code(s): R55 - SYNCOPE AND COLLAPSE Qualifiers: Syncope type: unspecified Qualified Code(s): R55 - Syncope and collapse (4) Anemia Code(s): D64.9 - ANEMIA, UNSPECIFIED (5) CKD (chronic kidney disease) Code(s): N18.9 - CHRONIC KIDNEY DISEASE, UNSPECIFIED (6) HLD (hyperlipidemia) Code(s): E78.5 - HYPERLIPIDEMIA, UNSPECIFIED (7) HTN (hypertension) Code(s): I10 - ESSENTIAL (PRIMARY) HYPERTENSION Assessment/Plan Current Medications Generic Name Dose Route Start Last Admin Trade Name Freq PRN Reason Stop Dose Admin Albuterol Sulfate 1 amp 07/05/18 14:02 Ventolin 0.083% Nebulizer Soln - NEB Q4H PRN SHORT OF BREATH/WHEEZING Albuterol/Ipratropium 1 amp 07/05/18 12:00 07/05/18 11:25 Duoneb - NEB 1 amp RQID MONICA Administration Atorvastatin Calcium 40 mg 07/04/18 22:00 07/04/18 21:40 Lipitor - PO 40 mg HS MONICA Administration Heparin Sodium (Porcine) 1,000 unit 07/03/18 22:43 07/04/18 11:05 Heparin - IVPUSH 1,000 unit PRN PRN Administration Heparin Heparin Sodium (Porcine) 5,000 unit 07/03/18 22:43 Heparin - IVPUSH PRN PRN Heparin Heparin Sodium/Dextrose 25,000 units in 500 mls @ 20 mls/hr 07/04/18 10:00 09:42 Heparin Infusion - IVPB 1,000 units/hr TITR MONICA 20 mls/hr Administration Protocol 1,000 UNITS/HR Methylprednisolone Sodium Succinate 40 mg 07/05/18 18:00 Solu-Medrol - IVPUSH Q8H-IV MONICA Metoprolol Tartrate 25 mg 07/04/18 06:00 07/05/18 14:23 Lopressor - PO 25 mg TID MONICA Administration Impression 1. CKD 2. syncope 3. a-fib 4. cva 5. hld 6. ALBERTA 7. hypernatremia Plan - sodium is improved - renal function improving - cont nebs and steroids - agree with a dose of lasix - respiratory status is improved - discussed with medical team Dr Cramer
[2018-07-05] MEDS: methylPREDNISolone NA SUCC 40 MG/1 ML VIAL IVPUSH SCH (17:10)
[2018-07-05] MEDS: ATORVASTATIN CA 40 MG TABLET (FP) PO SCH (22:03)
[2018-07-06] MEDS: methylPREDNISolone NA SUCC 40 MG/1 ML VIAL IVPUSH SCH ×3 (02:10→17:36)
[2018-07-06] MEDS: METOPROLOL TARTRATE 25 MG TABLET (FP) PO SCH ×3 (06:04→22:10)
[2018-07-06] MEDS: ALBUTEROL SO4 2.5/IPRATROPIUM 0.5 INH SOL 3 ML VIAL.NEB. NEB SCH ×4 (07:11→21:00)
--- NOTE | 2018-07-06 07:53 | PN ---
Progress Note, Physician Chief Complaint: Pt A&Ox3; no dizziness or palpitations; no chest pain. History of Present Illness: Mr. 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 As per patient and family, he has experienced multiple episodes in the past year. Patients notes he had two episodes yesterday when attempting to have a BM and two repeat episodes today. Patient normally has one episode of syncope every one to two weeks. Patient endorses a fall a month ago which, he went to urgent care and had a head CT without pertinent findings. He denies hitting his head today. He denies any head/neck injuries. He denies any recent fevers, chills, or dizziness. He denies any recent nausea, vomit, diarrhea or constipation. He denies any recent chest pain or shortness of breath. He denies any recent dysuria, frequency, urgency or hematuria. Social History: Lives at home with and aid. Former smoker (Quit 20 years ago). 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 Depressed over decreased mobility since CVA; formerly "swam in the [employer]", and enjoyed long walks and kayaking. - Current Medication List Current Medications: Active Medications Albuterol Sulfate (Ventolin 0.083% Nebulizer Soln -) 1 amp NEB Q4H PRN PRN Reason: SHORT OF BREATH/WHEEZING Albuterol/Ipratropium (Duoneb -) 1 amp NEB RQID [facility] Last Admin: 07/06/18 07:11 Dose: 1 amp Atorvastatin Calcium (Lipitor -) 40 mg PO HS MONICA Last Admin: 07/05/18 22:03 Dose: 40 mg Heparin Sodium (Porcine) (Heparin -) 1,000 unit IVPUSH PRN PRN PRN Reason: Heparin Last Admin: 07/04/18 11:05 Dose: 1,000 unit Heparin Sodium (Porcine) (Heparin -) 5,000 unit IVPUSH PRN PRN PRN Reason: Heparin Heparin Sodium/Dextrose (Heparin Infusion -) 25,000 units in 500 mls @ 20 mls/ hr IVPB TITR MONICA; Protocol Last Admin: 07/05/18 09:42 Dose: 1,000 units/hr, 20 mls/hr Methylprednisolone Sodium Succinate (Solu-Medrol -) 40 mg IVPUSH Q8H-IV MONICA Last Admin: 07/06/18 02:10 Dose: 40 mg Metoprolol Tartrate (Lopressor -) 25 mg PO TID MONICA Last Admin: 07/06/18 06:04 Dose: 25 mg - Objective Vital Signs: Vital Signs Temperature 97.3 F L 07/06/18 02:00 Pulse Rate 78 07/06/18 02:00 Respiratory Rate 20 07/06/18 02:00 Blood Pressure 126/87 07/06/18 02:00 O2 Sat by Pulse Oximetry (%) 97 07/05/18 20:05 Labs: INR, PTT INR 1.05 (0.83-1.09) 07/04/18 05:30 Problem List - Problems (1) Elevated troponin Assessment/Plan: 0.6 (<0.02 in January of this year). No significant ST-T changes. ECHO: mild-moderately decreased LVEF. Code(s): R74.8 - ABNORMAL LEVELS OF OTHER SERUM ENZYMES (2) Syncope Assessment/Plan: hx multiple episodes of syncope, usually related to having bowel movement. F/u orthostatic vital signs. Avoid dehydration. Carotid artery US 02/14: at least moderate atherosclerotic plaque at ICA bifurcation, with stenosis: noncontrast MRA including upper aorta was recommended (renal dysfunction may preclude use of CT) ECHO: mild-moderately decreased LVEF; global hypokinesis. Code(s): R55 - SYNCOPE AND COLLAPSE Qualifiers: Syncope type: unspecified Qualified Code(s): R55 - Syncope and collapse (3) Anemia Code(s): D64.9 - ANEMIA, UNSPECIFIED (4) CVA (cerebral vascular accident) Code(s): I63.9 - CEREBRAL INFARCTION, UNSPECIFIED (5) HLD (hyperlipidemia) Code(s): E78.5 - HYPERLIPIDEMIA, UNSPECIFIED (6) Acute combined systolic and diastolic CHF, NYHA class 1 Assessment/Plan: On metoprolol. Start ACEI or ARB Furosemide prn. BNP > 25,000 (was <500 in January). BUN/Cr, electrolytes, Is ans Os, and daily weight. Code(s): I50.41 - ACUTE COMBINED SYSTOLIC AND DIASTOLIC (CONGESTIVE) HRT FAIL
[2018-07-06 08:37] LABS: ALBUMIN 2.1 g/dl (3.4-5.0); ALK PHOS 77 U/L (45-117); ANION GAP 13 MMOL/L (8-16); BILIRUBIN,TOTAL 0.2 mg/dL (0.2-1); BLOOD UREA NITROGEN 29 mg/dL (7-18); CHLORIDE 111 mmol/L (98-107); CO2 18 mmol/L (21-32); CREATININE 1.4 mg/dL (0.55-1.3); GLUCOSE,RANDOM 147 mg/dL (74-106); MAGNESIUM 1.9 mg/dL (1.8-2.4); PHOSPHOROUS 4.8 mg/dL (2.5-4.9); POTASSIUM 3.8 mmol/L (3.5-5.1); SGOT/AST 11 U/L (15-37); SGPT/ALT 16 U/L (13-61); SODIUM 142 mmol/L (136-145); TOT PROT 5.6 g/dl (6.4-8.2)
[2018-07-06 09:23] LABS: HEMATOCRIT 28.7 % (35.4-49); HEMOGLOBIN 8.9 GM/dL (11.7-16.9); MCH 23.1 pg (25.7-33.7); MEAN CELL VOLUME 74.8 fl (80-96); MEAN PLT VOLUME 8.8 fl (7.5-11.1); PLATELET COUNT 286 K/MM3 (134-434); RBC 3.84 M/mm3 (4.00-5.60); RDW 19.7 % (11.9-15.9); WHITE BLOOD COUNT 13.9 K/mm3 (4.0-10.0)
[2018-07-06] MEDS: LOSARTAN POTASSIUM 50 MG TABLET (FP) PO SCH (09:32)
[2018-07-06 09:39] LABS: CALCIUM 8.2 mg/dL (8.5-10.1)
--- NOTE | 2018-07-06 11:25 | PN ---
Progress Note, Physician Chief Complaint: Pt A&Ox3; no dizziness or palpitations; no chest pain. His youngest daughter is at bedside. History of Present Illness: Mr. 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 As per patient and family, he has experienced multiple episodes in the past year. Patients notes he had two episodes yesterday when attempting to have a BM and two repeat episodes today. Patient normally has one episode of syncope every one to two weeks. Patient endorses a fall a month ago which, he went to urgent care and had a head CT without pertinent findings. He denies hitting his head today. He denies any head/neck injuries. He denies any recent fevers, chills, or dizziness. He denies any recent nausea, vomit, diarrhea or constipation. He denies any recent chest pain or shortness of breath. He denies any recent dysuria, frequency, urgency or hematuria. Social History: Lives at home with and aid. Former smoker (Quit 20 years ago). 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 Depressed over decreased mobility since CVA; formerly "swam in the [place]", and enjoyed long walks and kayaking. - Current Medication List Current Medications: Active Medications Albuterol Sulfate (Ventolin 0.083% Nebulizer Soln -) 1 amp NEB Q4H PRN PRN Reason: SHORT OF BREATH/WHEEZING Albuterol/Ipratropium (Duoneb -) 1 amp NEB RQID [facility] Last Admin: 07/06/18 11:15 Dose: 1 amp Atorvastatin Calcium (Lipitor -) 40 mg PO HS MONICA Last Admin: 07/05/18 22:03 Dose: 40 mg Heparin Sodium (Porcine) (Heparin -) 1,000 unit IVPUSH PRN PRN PRN Reason: Heparin Last Admin: 07/04/18 11:05 Dose: 1,000 unit Heparin Sodium (Porcine) (Heparin -) 5,000 unit IVPUSH PRN PRN PRN Reason: Heparin Losartan Potassium (Cozaar -) 25 mg PO DAILY [facility] Last Admin: 07/06/18 09:32 Dose: 25 mg Methylprednisolone Sodium Succinate (Solu-Medrol -) 40 mg IVPUSH Q8H-IV MONICA Last Admin: 07/06/18 09:33 Dose: 40 mg Metoprolol Tartrate (Lopressor -) 25 mg PO TID [facility] Last Admin: 07/06/18 06:04 Dose: 25 mg - Objective Vital Signs: Vital Signs Temperature 98.7 F 07/06/18 10:00 Pulse Rate 73 07/06/18 10:00 Respiratory Rate 20 07/06/18 10:00 Blood Pressure 145/60 07/06/18 10:00 O2 Sat by Pulse Oximetry (%) 99 07/06/18 09:00 Constitutional: Yes: Calm, Thin Eyes: Yes: WNL HENT: Yes: WNL Neck: Yes: WNL Cardiovascular: Yes: S1 (split), S2 Respiratory: Yes: WNL Gastrointestinal: Yes: Soft ...Rectal Exam: Yes: Deferred Genitourinary: No: Anuria Musculoskeletal: Yes: Joint Stiffness, Muscle Weakness, Other (contracted left arm; weak left side) Extremities: Yes: Cool Edema: No Peripheral Pulses WNL: Yes Integumentary: Yes: WNL Neurological: Yes: Alert, Oriented, Weakness Psychiatric: Yes: Alert, Oriented, Other (anxiety/depression) Labs: CBC, BMP 07/06/18 06:00 07/06/18 06:00 INR, PTT INR 1.05 (0.83-1.09) 07/04/18 05:30 - ....Imaging Other: Image Reviewed (telemetry: NSR) Problem List - Problems (1) Elevated troponin Assessment/Plan: 0.6 (<0.02 in January of this year). No significant ST-T changes. ECHO: mild-moderately decreased LVEF. Hx multiple coronary stetns about 5 years ago; no further stress tests or angiograms since then, per pt and daughter. Smoked cigarettes for 40 yers 1/2-2 ppd (quit many years ago). Will order Lexiscan stress MIBI. (pt did not have coffee or tea this morning). Addendum: Lexiscan stress MIBI today: no myocardial ischemia; no transient ischemic dilatation. Code(s): R74.8 - ABNORMAL LEVELS OF OTHER SERUM ENZYMES (2) Syncope Assessment/Plan: hx multiple episodes of syncope, "always" (per daughter) while having bowel movement. F/u orthostatic vital signs. Avoid dehydration; avoid constipation. Carotid artery US 02/14: at least moderate atherosclerotic plaque at ICA bifurcation, with stenosis: noncontrast MRA including upper aorta was recommended (renal dysfunction may preclude use of CT) Telemetry: NSR; no significnat arrhythmias or bradycardia. ECHO: mild-moderately decreased LVEF; global hypokinesis. Lexiscan stress MIBI: no myocardial ischemia. Code(s): R55 - SYNCOPE AND COLLAPSE Qualifiers: Syncope type: unspecified Qualified Code(s): R55 - Syncope and collapse (3) Anemia Code(s): D64.9 - ANEMIA, UNSPECIFIED (4) CVA (cerebral vascular accident) Assessment/Plan: right cerebral infarcts; left sided residual contracture of hand and overall weakness; garbled and hesitant speech Aggressive lipid control. Consider MRA of cartoids, aorta (moderate atherosclerosis of cartoids on ultrasound). Stress MIBI (hx stents; + TNI; reduced LVEF). Code(s): I63.9 - CEREBRAL INFARCTION, UNSPECIFIED (5) HLD (hyperlipidemia) Assessment/Plan: total cholesterol 112 mg/dL. On atorvastatin 40 mg daily. Code(s): E78.5 - HYPERLIPIDEMIA, UNSPECIFIED (6) Acute combined systolic and diastolic CHF, NYHA class 1 Assessment/Plan: On metoprolol. Start ACEI or ARB Furosemide prn. BNP > 25,000 (was <500 in January). BUN/Cr, electrolytes, Is ans Os, and daily weight. F/u LVEF (initially mild-moderately reduced LVEF on ECHO; normal LVEF on today' s Lexiscan stress MIBI). Code(s): I50.41 - ACUTE COMBINED SYSTOLIC AND DIASTOLIC (CONGESTIVE) HRT FAIL (7) Leukocytosis Assessment/Plan: afebrile; on Solumedrol. Code(s): D72.829 - ELEVATED WHITE BLOOD CELL COUNT, UNSPECIFIED
--- NOTE | 2018-07-06 11:55 | PN ---
Progress Note, Physician History of Present Illness: PULMONARY ALERT,FEELING BETTER,LESS SOB - Current Medication List Current Medications: Active Medications Albuterol Sulfate (Ventolin 0.083% Nebulizer Soln -) 1 amp NEB Q4H PRN PRN Reason: SHORT OF BREATH/WHEEZING Albuterol/Ipratropium (Duoneb -) 1 amp NEB RQID [facility] Last Admin: 07/06/18 11:15 Dose: 1 amp Atorvastatin Calcium (Lipitor -) 40 mg PO HS [facility] Last Admin: 07/05/18 22:03 Dose: 40 mg Heparin Sodium (Porcine) (Heparin -) 1,000 unit IVPUSH PRN PRN PRN Reason: Heparin Last Admin: 07/04/18 11:05 Dose: 1,000 unit Heparin Sodium (Porcine) (Heparin -) 5,000 unit IVPUSH PRN PRN PRN Reason: Heparin Losartan Potassium (Cozaar -) 25 mg PO DAILY [facility] Last Admin: 07/06/18 09:32 Dose: 25 mg Methylprednisolone Sodium Succinate (Solu-Medrol -) 40 mg IVPUSH Q8H-IV [facility] Last Admin: 07/06/18 09:33 Dose: 40 mg Metoprolol Tartrate (Lopressor -) 25 mg PO TID [facility] Last Admin: 07/06/18 06:04 Dose: 25 mg Regadenoson (Lexiscan) 0.4 mg IVPUSH ONCE ONE Stop: 07/06/18 12:01 - Objective Vital Signs: Vital Signs Temperature 98.7 F 07/06/18 10:00 Pulse Rate 73 07/06/18 10:00 Respiratory Rate 20 07/06/18 10:00 Blood Pressure 145/60 07/06/18 10:00 O2 Sat by Pulse Oximetry (%) 99 07/06/18 09:00 Constitutional: Yes: Calm, Thin Eyes: Yes: WNL HENT: Yes: WNL Neck: Yes: WNL Cardiovascular: Yes: Pulse Irregular, S1, S2 Respiratory: Yes: Diminished Gastrointestinal: Yes: Normal Bowel Sounds, Soft Extremities: Yes: WNL Edema: No Labs: CBC, BMP 07/06/18 06:00 07/06/18 06:00 INR, PTT INR 1.05 (0.83-1.09) 07/04/18 05:30 Assessment/Plan Problem List - Problems (1) Syncope Code(s): R55 - SYNCOPE AND COLLAPSE Qualifiers: Syncope type: unspecified Qualified Code(s): R55 - Syncope and collapse (2) Elevated troponin Code(s): R74.8 - ABNORMAL LEVELS OF OTHER SERUM ENZYMES (3) CKD (chronic kidney disease) Code(s): N18.9 - CHRONIC KIDNEY DISEASE, UNSPECIFIED (4) HLD (hyperlipidemia) Code(s): E78.5 - HYPERLIPIDEMIA, UNSPECIFIED (5) HTN (hypertension) Code(s): I10 - ESSENTIAL (PRIMARY) HYPERTENSION Assessment/Plan Shortness of breath improving r/o Acute COPD Exacerbation Favor Atelectasis > Pneumonia Acute on Chronic Renal Failure Metabolic Acidosis LV Systolic/Diastolic Dysfunction Atrial Fibrillation CAD h/o CVA - pt with prolonged expiratory phase, likely has underlying COPD so may not be able to comfortably compensate with tachypnea - continue medrol - inhaled bronchodilators standing and PRN - taper O2 to keep Spo2 >90% - rate control - outpt PFTs if able - DVT prophylaxis DR DIALLO
[2018-07-06] MEDS ORDERED: REGADENOSON 0.4 MG/5 ML PRE-FILLED SYRINGE IVPUSH ONE ×2 (12:00→13:44)
--- NOTE | 2018-07-06 13:05 | PN ---
Physical Exam: SUBJECTIVE: Patient seen and examined OBJECTIVE: Vital Signs Period Temp Pulse Resp BP Sys/Canales Pulse Ox Last 24 Hr 97.3 F-98.9 F 73-84 18-20 126-152/60-87 97-99 GENERAL: The patient is awake, alert, and fully oriented, in no acute distress. HEAD: Normal with no signs of trauma. EYES: PERRL, extraocular movements intact, sclera anicteric, conjunctiva clear. No ptosis. ENT: Ears normal, nares patent, oropharynx clear without exudates, moist mucous membranes. NECK: Trachea midline, full range of motion, supple. LUNGS: Breath sounds equal, clear to auscultation bilaterally, no wheezes, no crackles, no accessory muscle use. HEART: Regular rate and rhythm, S1, S2 without murmur, rub or gallop. ABDOMEN: Soft, nontender, nondistended, normoactive bowel sounds, no guarding, no rebound, no hepatosplenomegaly, no masses. EXTREMITIES: 2+ pulses, warm, well-perfused, no edema. NEUROLOGICAL: Cranial nerves II through XII grossly intact. Normal speech, gait not observed. PSYCH: Normal mood, normal affect. SKIN: Warm, dry, normal turgor, no rashes or lesions noted Laboratory Results - last 24 hr 07/06/18 07/06/18 07/06/18 06:00 06:00 06:00 WBC 13.9 H RBC 3.84 L Hgb 8.9 L Hct 28.7 L MCV 74.8 L MCH 23.1 L MCHC 31.0 L RDW 19.7 H Plt Count 286 MPV 8.8 PTT (Actin FS) 75.0 H Sodium 142 Potassium 3.8 Chloride 111 H Carbon Dioxide 18 L Anion Gap 13 BUN 29 H Creatinine 1.4 H Creat Clearance w eGFR 47.72 Random Glucose 147 H Calcium 8.2 L Phosphorus 4.8 Magnesium 1.9 Total Bilirubin 0.2 AST 11 L ALT 16 Alkaline Phosphatase 77 Total Protein 5.6 L Albumin 2.1 L Active Medications Generic Name Dose Route Start Last Admin Trade Name Freq PRN Reason Stop Dose Admin Albuterol Sulfate 1 amp 07/05/18 14:02 Ventolin 0.083% Nebulizer Soln - NEB Q4H PRN SHORT OF BREATH/WHEEZING Albuterol/Ipratropium 1 amp 07/05/18 12:00 07/06/18 11:15 Duoneb - NEB 1 amp RQID [facility] Administration Atorvastatin Calcium 40 mg 07/04/18 22:00 07/05/18 22:03 Lipitor - PO 40 mg HS [facility] Administration Heparin Sodium (Porcine) 1,000 unit 07/03/18 22:43 07/04/18 11:05 Heparin - IVPUSH 1,000 unit PRN PRN Administration Heparin Heparin Sodium (Porcine) 5,000 unit 07/03/18 22:43 Heparin - IVPUSH PRN PRN Heparin Losartan Potassium 25 mg 07/06/18 10:00 07/06/18 09:32 Cozaar - PO 25 mg DAILY [facility] Administration Methylprednisolone Sodium Succinate 40 mg 07/05/18 18:00 07/06/18 09:33 Solu-Medrol - IVPUSH 40 mg Q8H-IV [facility] Administration Metoprolol Tartrate 25 mg 07/04/18 06:00 07/06/18 06:04 Lopressor - PO 25 mg TID [facility] Administration ASSESSMENT/PLAN: Problem List - Problems (1) Elevated troponin Code(s): R74.8 - ABNORMAL LEVELS OF OTHER SERUM ENZYMES (2) Syncope Code(s): R55 - SYNCOPE AND COLLAPSE Qualifiers: Syncope type: unspecified Qualified Code(s): R55 - Syncope and collapse (3) CKD (chronic kidney disease) Code(s): N18.9 - CHRONIC KIDNEY DISEASE, UNSPECIFIED
--- NOTE | 2018-07-06 13:57 | PN ---
Physical Exam: SUBJECTIVE: Patient seen and examined at bedside- no acute events overnight. patients breathing status has improved; he denies any CP/SOB/N/V fevers or chills. OBJECTIVE: Vital Signs Period Temp Pulse Resp BP Sys/Canales Pulse Ox Last 24 Hr 97.3 F-98.9 F 73-84 18-20 126-152/60-87 97-99 GENERAL: The patient is awake, alert, and fully oriented, in no acute distress. EYES: no scleral icterus. . NECK: slight JVD LUNGS: slightly diminished breath sounds; no rales, rhonchi or wheezing HEART: irregularly irregular, S1, S2 without murmur, rub or gallop. ABDOMEN: Soft, nontender, nondistended, normoactive bowel sounds, no guarding, no rebound, no hepatosplenomegaly, no masses. EXTREMITIES: 2+ pulses, warm, well-perfused, no edema. SKIN: Warm, dry, normal turgor, no rashes or lesions noted Laboratory Results - last 24 hr 07/06/18 07/06/18 07/06/18 06:00 06:00 06:00 WBC 13.9 H RBC 3.84 L Hgb 8.9 L Hct 28.7 L MCV 74.8 L MCH 23.1 L MCHC 31.0 L RDW 19.7 H Plt Count 286 MPV 8.8 PTT (Actin FS) 75.0 H Sodium 142 Potassium 3.8 Chloride 111 H Carbon Dioxide 18 L Anion Gap 13 BUN 29 H Creatinine 1.4 H Creat Clearance w eGFR 47.72 Random Glucose 147 H Calcium 8.2 L Phosphorus 4.8 Magnesium 1.9 Total Bilirubin 0.2 AST 11 L ALT 16 Alkaline Phosphatase 77 Total Protein 5.6 L Albumin 2.1 L Active Medications Generic Name Dose Route Start Last Admin Trade Name Freq PRN Reason Stop Dose Admin Albuterol Sulfate 1 amp 07/05/18 14:02 Ventolin 0.083% Nebulizer Soln - NEB Q4H PRN SHORT OF BREATH/WHEEZING Albuterol/Ipratropium 1 amp 07/05/18 12:00 07/06/18 11:15 Duoneb - NEB 1 amp RQID [facility] Administration Atorvastatin Calcium 40 mg 07/04/18 22:00 07/05/18 22:03 Lipitor - PO 40 mg HS [facility] Administration Heparin Sodium (Porcine) 1,000 unit 07/03/18 22:43 07/04/18 11:05 Heparin - IVPUSH 1,000 unit PRN PRN Administration Heparin Heparin Sodium (Porcine) 5,000 unit 07/03/18 22:43 Heparin - IVPUSH PRN PRN Heparin Losartan Potassium 25 mg 07/06/18 10:00 07/06/18 09:32 Cozaar - PO 25 mg DAILY [facility] Administration Methylprednisolone Sodium Succinate 40 mg 07/05/18 18:00 07/06/18 09:33 Solu-Medrol - IVPUSH 40 mg Q8H-IV [facility] Administration Metoprolol Tartrate 25 mg 07/04/18 06:00 07/06/18 06:04 Lopressor - PO 25 mg TID [facility] Administration ASSESSMENT/PLAN: 88 y/o M w/ PMHx A-fib, CAD w/ stents x 2, 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 No CP, no neurologic symptoms. Troponemia to 0.61, no ST changes but interval development of t-wave inversions on EKG. #NSTEMI -presumptive NSTEMI until proven otherwise -trend troponins,latest trop being 0.53 -per cardiology: -metoprolol tartrate 25 q8h for rate control -IV heparin infusion -atorvastatin 40 -ASA -patient has been discontinued from eliquis since last hospitalization -repeat ECHO showing mild to moderately decreased LV systolic function with mild global hypokinesis of the LV -patient getting stress test today -dr garcia added losartan 25 daily #COPD -CT chest pending -solumedrol 40q8 H -given IV solumedrol 60 once #CVA -HCT negative, neurologic exam unchanged -neuro checks q6h #Afib/CAD/HTN/HLD -treat as per cardiology recommendations #ALBERTA -heparin infusion provides fluid resuscitation -otherwise treat cardiac issues at this time #FEN -no IVF -monitor and replete electrolytes -dysphagia puree w/ nectar liquid per previous S/S assessment #PPx -DVT: heparin infusion -GI: not indicated Problem List - Problems (1) Elevated troponin Code(s): R74.8 - ABNORMAL LEVELS OF OTHER SERUM ENZYMES (2) Syncope Code(s): R55 - SYNCOPE AND COLLAPSE Qualifiers: Syncope type: unspecified Qualified Code(s): R55 - Syncope and collapse (3) CKD (chronic kidney disease) Code(s): N18.9 - CHRONIC KIDNEY DISEASE, UNSPECIFIED Visit type - Emergency Visit Emergency Visit: Yes ED Registration Date: 07/04/18 Care time: The patient presented to the Emergency Department on the above date and was hospitalized for further evaluation of their emergent condition. - New Patient This patient is new to me today: No - Critical Care Critical Care patient: No
[2018-07-06] MEDS ORDERED: AMINOPHYLLINE 250 MG/10 ML VIAL IVPUSH ONE (14:20)
--- NOTE | 2018-07-06 16:42 | PN ---
Progress Note, Physician History of Present Illness: Pt seen and examined at bedside. He is awake and appears comfortable. He denies shortness of breath. - Current Medication List Current Medications: Active Medications Albuterol Sulfate (Ventolin 0.083% Nebulizer Soln -) 1 amp NEB Q4H PRN PRN Reason: SHORT OF BREATH/WHEEZING Albuterol/Ipratropium (Duoneb -) 1 amp NEB RQID [facility] Last Admin: 07/06/18 16:25 Dose: 1 amp Atorvastatin Calcium (Lipitor -) 40 mg PO HS [facility] Last Admin: 07/05/18 22:03 Dose: 40 mg Heparin Sodium (Porcine) (Heparin -) 1,000 unit IVPUSH PRN PRN PRN Reason: Heparin Last Admin: 07/04/18 11:05 Dose: 1,000 unit Heparin Sodium (Porcine) (Heparin -) 5,000 unit IVPUSH PRN PRN PRN Reason: Heparin Losartan Potassium (Cozaar -) 25 mg PO DAILY [facility] Last Admin: 07/06/18 09:32 Dose: 25 mg Methylprednisolone Sodium Succinate (Solu-Medrol -) 40 mg IVPUSH Q8H-IV [facility] Last Admin: 07/06/18 09:33 Dose: 40 mg Metoprolol Tartrate (Lopressor -) 25 mg PO TID [facility] Last Admin: 07/06/18 15:22 Dose: 25 mg - Objective Vital Signs: Vital Signs Temperature 98.1 F 07/06/18 14:00 Pulse Rate 92 H 07/06/18 14:00 Respiratory Rate 20 07/06/18 14:00 Blood Pressure 141/68 07/06/18 14:00 O2 Sat by Pulse Oximetry (%) 99 07/06/18 09:00 Constitutional: Yes: Calm Eyes: Yes: Conjunctiva Clear HENT: Yes: Atraumatic Neck: Yes: Supple Cardiovascular: Yes: S1, S2 Respiratory: Yes: On Nasal O2, Wheezes Gastrointestinal: Yes: Soft Genitourinary: Yes: Incontinence Musculoskeletal: Yes: Muscle Weakness Edema: No Neurological: Yes: Oriented, Pre-Existing Deficit Labs: CBC, BMP 07/06/18 06:00 07/06/18 06:00 INR, PTT INR 1.05 (0.83-1.09) 07/04/18 05:30 Problem List - Problems (1) Hypernatremia Code(s): E87.0 - HYPEROSMOLALITY AND HYPERNATREMIA (2) Elevated troponin Code(s): R74.8 - ABNORMAL LEVELS OF OTHER SERUM ENZYMES (3) Syncope Code(s): R55 - SYNCOPE AND COLLAPSE Qualifiers: Syncope type: unspecified Qualified Code(s): R55 - Syncope and collapse (4) Anemia Code(s): D64.9 - ANEMIA, UNSPECIFIED (5) CKD (chronic kidney disease) Code(s): N18.9 - CHRONIC KIDNEY DISEASE, UNSPECIFIED (6) HLD (hyperlipidemia) Code(s): E78.5 - HYPERLIPIDEMIA, UNSPECIFIED (7) HTN (hypertension) Code(s): I10 - ESSENTIAL (PRIMARY) HYPERTENSION Assessment/Plan Current Medications Generic Name Dose Route Start Last Admin Trade Name Freq PRN Reason Stop Dose Admin Albuterol Sulfate 1 amp 07/05/18 14:02 Ventolin 0.083% Nebulizer Soln - NEB Q4H PRN SHORT OF BREATH/WHEEZING Albuterol/Ipratropium 1 amp 07/05/18 12:00 07/05/18 11:25 Duoneb - NEB 1 amp RQID [facility] Administration Atorvastatin Calcium 40 mg 07/04/18 22:00 07/04/18 21:40 Lipitor - PO 40 mg HS [facility] Administration Heparin Sodium (Porcine) 1,000 unit 07/03/18 22:43 07/04/18 11:05 Heparin - IVPUSH 1,000 unit PRN PRN Administration Heparin Heparin Sodium (Porcine) 5,000 unit 07/03/18 22:43 Heparin - IVPUSH PRN PRN Heparin Heparin Sodium/Dextrose 25,000 units in 500 mls @ 20 mls/hr 07/04/18 10:00 09:42 Heparin Infusion - IVPB 1,000 units/hr TITR [facility] 20 mls/hr Administration Protocol 1,000 UNITS/HR Methylprednisolone Sodium Succinate 40 mg 07/05/18 18:00 Solu-Medrol - IVPUSH Q8H-IV [facility] Metoprolol Tartrate 25 mg 07/04/18 06:00 07/05/18 14:23 Lopressor - PO 25 mg TID [facility] Administration Impression 1. CKD 2. syncope 3. a-fib 4. cva 5. hld 6. ALBERTA 7. hypernatremia Plan - monitor lytes - lasix as needed - steroids with taper - encourage PO intake - cont nebs - will follow Dr Cramer
--- NOTE | 2018-07-06 17:27 | PN ---
Teaching Attending Note Name of Resident: Loan Stockton ATTENDING PHYSICIAN STATEMENT I saw and evaluated the patient. I reviewed the resident's note and discussed the case with the resident. I agree with the resident's findings and plan as documented with exceptions below. SUBJECTIVE: Patient seen and examined. Denies any pain. When asked about breathing states " I don't know". OBJECTIVE: Vital Signs Period Temp Pulse Resp BP Sys/Canales Pulse Ox Last 24 Hr 97.3 F-98.9 F 73-92 20-20 126-151/60-87 97-99 Intake & Output 07/03/18 07/04/18 07/05/18 07/06/18 23:59 23:59 23:59 23:59 Intake Total 1174 2592 600 Balance 1174 2592 600 Weight 141 lb 141 lb General: lying in stretcher in no acute distress Chest: improved air entry, occasional wheezing Abdomen:soft, NT, ND Extremities: no edema Active Medications Albuterol Sulfate (Ventolin 0.083% Nebulizer Soln -) 1 amp NEB Q4H PRN PRN Reason: SHORT OF BREATH/WHEEZING Albuterol/Ipratropium (Duoneb -) 1 amp NEB RQID [facility] Last Admin: 07/06/18 16:25 Dose: 1 amp Aspirin (Ecotrin -) 81 mg PO DAILY [facility] Atorvastatin Calcium (Lipitor -) 40 mg PO HS [facility] Last Admin: 07/05/18 22:03 Dose: 40 mg Heparin Sodium (Porcine) (Heparin -) 1,000 unit IVPUSH PRN PRN PRN Reason: Heparin Last Admin: 07/04/18 11:05 Dose: 1,000 unit Heparin Sodium (Porcine) (Heparin -) 5,000 unit IVPUSH PRN PRN PRN Reason: Heparin Losartan Potassium (Cozaar -) 25 mg PO DAILY [facility] Last Admin: 07/06/18 09:32 Dose: 25 mg Methylprednisolone Sodium Succinate (Solu-Medrol -) 40 mg IVPUSH Q8H-IV [facility] Last Admin: 07/06/18 09:33 Dose: 40 mg Metoprolol Tartrate (Lopressor -) 25 mg PO TID [facility] Last Admin: 07/06/18 15:22 Dose: 25 mg Laboratory Results - last 24 hr 07/06/18 07/06/18 07/06/18 06:00 06:00 06:00 WBC 13.9 H RBC 3.84 L Hgb 8.9 L Hct 28.7 L MCV 74.8 L MCH 23.1 L MCHC 31.0 L RDW 19.7 H Plt Count 286 MPV 8.8 PTT (Actin FS) 75.0 H Sodium 142 Potassium 3.8 Chloride 111 H Carbon Dioxide 18 L Anion Gap 13 BUN 29 H Creatinine 1.4 H Creat Clearance w eGFR 47.72 Random Glucose 147 H Calcium 8.2 L Phosphorus 4.8 Magnesium 1.9 Total Bilirubin 0.2 AST 11 L ALT 16 Alkaline Phosphatase 77 Total Protein 5.6 L Albumin 2.1 L ASSESSMENT AND PLAN: 88 y/o M w/ PMHx A-fib (*eliquis recently discontinued*), CAD w/ stents x 2, 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 -Acute on ?chronic hypoxic respiratory distress/Acute copd exacerbation (>60 pack year smoking history)+/- Acute systolic HF exacerbation (new global hypokinesis) -Syncope, ?vasovagal compounded by dehydration/hypovolumia, less likely cardiac , low suspicion for PE -NSTEMi, ?type II from demand from above vs ACS (EKG with poor R wave progression compared to 01/2018) -New Mild to moderate LV dysfunction/Global hypokinesis,/Underlying CAD/silent UT -ALBERTA, ?hypovolumia, on underlying ?CKD -Hypernatremia, ?hypovolumic -Elevated BNP, clinical exam not consistent with volume overload -CAD s/p PCI x 2 -h/o CVA with left residual hemiparesis Plan: Breathing improved. IV steroids with taper. Pulmonary input appreciated. Lasix prn. Hold off on IVF. Encourage free water intake. Strict I/Os, Daily weights. Prior lung clips, ?History lung ca/COPD. Retrieve more info from PCP. New LV dysfunction on 2D echo. Cardiology input appreciated.Stress test neg for ischemia. Add ASA. Continue statin/metoprolol. Heparin drip per cardiology. DVTPPX on heparin drip will need PT eval and CM consult for d/c planning when medical issues improve, in 24-48 hours. Plan discussed with nursing.
[2018-07-06] MEDS: ATORVASTATIN CA 40 MG TABLET (FP) PO SCH (22:10)
[2018-07-07] MEDS: methylPREDNISolone NA SUCC 40 MG/1 ML VIAL IVPUSH SCH ×3 (01:48→17:46)
--- NOTE | 2018-07-07 05:17 | PN ---
Physical Exam: SUBJECTIVE: Patient seen and examined at bed side, no acute events over night , denies fever, chills, N/V/D/C , has stage 1 decubitus ulcer , breathing is better , denies cp, or sob. OBJECTIVE: Vital Signs Period Temp Pulse Resp BP Sys/Canales Pulse Ox Last 24 Hr 98.1 F-98.7 F 73-92 20-20 141-182/60-87 99-100 GENERAL: AAOx3 in NAD HEAD: NC/AT EYES: EOMI, Conjunctiva clear, sclera anicteric ENT: moist mucous membrane NECK: Supple, LUNGS: CTA B/L, no crackles no wheezing no accessory muscle use. HEART: RRR, NSR, normal s1, s2, murmur no M/R/G ABDOMEN: Soft, ND, NT, +BS 4 Q, no CVA Tenderness LOWER EXTREMITIES: no edema, +2DP pulse, NEUROLOGICAL: cinching his teath ,left facial drop, left arm weakness, left leg weakness sensation intact,Normal speech. gait not observed. PSYCHIATRIC: Cooperative. Good eye contact. Appropriate mood and affect. SKIN: Warm, dry,decubitus ulcer Laboratory Results - last 24 hr 07/06/18 07/06/18 07/06/18 06:00 06:00 06:00 WBC 13.9 H RBC 3.84 L Hgb 8.9 L Hct 28.7 L MCV 74.8 L MCH 23.1 L MCHC 31.0 L RDW 19.7 H Plt Count 286 MPV 8.8 PTT (Actin FS) 75.0 H Sodium 142 Potassium 3.8 Chloride 111 H Carbon Dioxide 18 L Anion Gap 13 BUN 29 H Creatinine 1.4 H Creat Clearance w eGFR 47.72 Random Glucose 147 H Calcium 8.2 L Phosphorus 4.8 Magnesium 1.9 Total Bilirubin 0.2 AST 11 L ALT 16 Alkaline Phosphatase 77 Total Protein 5.6 L Albumin 2.1 L Active Medications Generic Name Dose Route Start Last Admin Trade Name Freq PRN Reason Stop Dose Admin Albuterol Sulfate 1 amp 07/05/18 14:02 Ventolin 0.083% Nebulizer Soln - NEB Q4H PRN SHORT OF BREATH/WHEEZING Albuterol/Ipratropium 1 amp 07/05/18 12:00 07/06/18 21:00 Duoneb - NEB 1 amp RQID [facility] Administration Aspirin 81 mg 07/07/18 10:00 Ecotrin - PO DAILY [facility] Atorvastatin Calcium 40 mg 07/04/18 22:00 07/06/18 22:10 Lipitor - PO 40 mg HS [facility] Administration Heparin Sodium (Porcine) 1,000 unit 07/03/18 22:43 07/04/18 11:05 Heparin - IVPUSH 1,000 unit PRN PRN Administration Heparin Heparin Sodium (Porcine) 5,000 unit 07/03/18 22:43 Heparin - IVPUSH PRN PRN Heparin Losartan Potassium 25 mg 07/06/18 10:00 07/06/18 09:32 Cozaar - PO 25 mg DAILY [facility] Administration Methylprednisolone Sodium Succinate 40 mg 07/05/18 18:00 07/07/18 01:48 Solu-Medrol - IVPUSH 40 mg Q8H-IV [facility] Administration Metoprolol Tartrate 25 mg 07/04/18 06:00 07/06/18 22:10 Lopressor - PO 25 mg TID [facility] Administration CBC, BMP 07/07/18 05:40 07/07/18 05:40 ASSESSMENT/PLAN: 88 y/o M w/ PMHx A-fib, CAD w/ stents x 2, 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 No CP, no neurologic symptoms. Troponemia to 0.61, no ST changes but interval development of t-wave inversions on EKG. # Acute hypoxic respiratory failure with acute copd exacerbation * breathing is better , no cp, or sob over night * taper steroid * bronchodilators standing and PRN * CT chest noted for small right pleural effusion , some interstitial thickening with mild right base atelectasis. * Lasix PRN * Encourage free water intake #NSTEMI * pharm stress negative for ischemia * ECG NSR with 1st degree AVB * telemetry without evidence of high degree AVB or pause, PACs and artifact * echocardiogram with mild to moderate dysfunction * abnormal carotids, * MRA * cont metoprolol tartrate 25 q8h for rate control, atorvastatin 40 HS , ASA * IV heparin infusion * patient has been discontinued from eliquis since last hospitalization * added losartan [address] Rodriguez * Hydralazin [address] soria # syncope likley due to vasovagal plus dehydration , unlikey Cardiac or PE * HCT negative, neurologic exam unchanged * neuro checks q6h #Afib/CAD/HTN/HLD * resume home meds * added losartan and hydralazin due to uncontrolled BP * daily weight , I& O #ALBERTA * Fluids with heparin infusion * otherwise treat cardiac issues at this time * monitor BUn/Cr # normocytic hypochromic Anemia * stable * no active bleeding * Monitor CBC daily #FEN * no standing fluids * monitor and replete electrolytes * dysphasia puree w/ nectar liquid per previous S/S assessment #PPx * DVT: heparin infusion # Dispo: * monitor on Tele * PT will benefit from MASHA Visit type - Emergency Visit Emergency Visit: Yes ED Registration Date: 07/04/18 Care time: The patient presented to the Emergency Department on the above date and was hospitalized for further evaluation of their emergent condition. - New Patient This patient is new to me today: No - Critical Care Critical Care patient: No - Discharge Referral Referred to [facility] No
[2018-07-07] MEDS: METOPROLOL TARTRATE 25 MG TABLET (FP) PO SCH ×3 (06:42→21:20)
[2018-07-07] MEDS: ALBUTEROL SO4 2.5/IPRATROPIUM 0.5 INH SOL 3 ML VIAL.NEB. NEB SCH ×4 (08:00→21:00)
[2018-07-07 08:21] LABS: HEMATOCRIT 27.8 % (35.4-49); HEMOGLOBIN 8.5 GM/dL (11.7-16.9); MCH 22.7 pg (25.7-33.7); MCHC 30.5 g/dl (32.0-35.9); MEAN CELL VOLUME 74.6 fl (80-96); MEAN PLT VOLUME 8.7 fl (7.5-11.1); PLATELET COUNT 303 K/MM3 (134-434); RBC 3.73 M/mm3 (4.00-5.60); RDW 19.7 % (11.9-15.9); WHITE BLOOD COUNT 12.9 K/mm3 (4.0-10.0)
[2018-07-07] MEDS: LOSARTAN POTASSIUM 50 MG TABLET (FP) PO SCH (09:38)
[2018-07-07] MEDS: ASPIRIN COATED 81 MG TABLET.EC PO SCH (09:38)
[2018-07-07 09:54] LABS: ANION GAP 13 MMOL/L (8-16); BLOOD UREA NITROGEN 33 mg/dL (7-18); CALCIUM 8.2 mg/dL (8.5-10.1); CHLORIDE 112 mmol/L (98-107); CO2 19 mmol/L (21-32); CREATININE 1.4 mg/dL (0.55-1.3); GLUCOSE,RANDOM 113 mg/dL (74-106); MAGNESIUM 2.3 mg/dL (1.8-2.4); PHOSPHOROUS 4.6 mg/dL (2.5-4.9); POTASSIUM 4.4 mmol/L (3.5-5.1); SODIUM 144 mmol/L (136-145)
--- NOTE | 2018-07-07 11:00 | PN ---
Teaching Attending Note Name of Resident: Johny Martinez ATTENDING PHYSICIAN STATEMENT I saw and evaluated the patient. I reviewed the resident's note and discussed the case with the resident. I agree with the resident's findings and plan as documented with exceptions below. SUBJECTIVE: Patient seen and examined. Breathing better. oriented to self, no complaints. OBJECTIVE: Vital Signs Period Temp Pulse Resp BP Sys/Canales Pulse Ox Last 24 Hr 97.8 F-98.5 F 72-92 20-20 141-182/68-96 100-100 Intake & Output 07/04/18 07/05/18 07/06/18 07/07/18 23:59 23:59 23:59 23:59 Intake Total 1174 2592 610 200 Balance 1174 2592 610 200 Weight 141 lb 141 lb General: lying in bed, improved breathing, no use of accessory muscles of respiration Chest: improved air entry still decreased, no rales or wheezing appreciated Abdomen:soft, NT, ND Extremities: no edema Active Medications Albuterol Sulfate (Ventolin 0.083% Nebulizer Soln -) 1 amp NEB Q4H PRN PRN Reason: SHORT OF BREATH/WHEEZING Albuterol/Ipratropium (Duoneb -) 1 amp NEB RQID [facility] Last Admin: 07/07/18 08:00 Dose: 1 amp Aspirin (Ecotrin -) 81 mg PO DAILY [facility] Last Admin: 07/07/18 09:38 Dose: 81 mg Atorvastatin Calcium (Lipitor -) 40 mg PO HS [facility] Last Admin: 07/06/18 22:10 Dose: 40 mg Heparin Sodium (Porcine) (Heparin -) 1,000 unit IVPUSH PRN PRN PRN Reason: Heparin Last Admin: 07/04/18 11:05 Dose: 1,000 unit Heparin Sodium (Porcine) (Heparin -) 5,000 unit IVPUSH PRN PRN PRN Reason: Heparin Losartan Potassium (Cozaar -) 25 mg PO DAILY [facility] Last Admin: 07/07/18 09:38 Dose: 25 mg Methylprednisolone Sodium Succinate (Solu-Medrol -) 40 mg IVPUSH Q8H-IV [facility] Last Admin: 07/07/18 09:38 Dose: 40 mg Metoprolol Tartrate (Lopressor -) 25 mg PO TID [facility] Last Admin: 07/07/18 06:42 Dose: 25 mg Laboratory Results - last 24 hr 07/07/18 07/07/18 07/07/18 05:40 05:40 05:40 WBC 12.9 H RBC 3.73 L Hgb 8.5 L Hct 27.8 L MCV 74.6 L MCH 22.7 L MCHC 30.5 L RDW 19.7 H Plt Count 303 MPV 8.7 PTT (Actin FS) 26.5 Sodium 144 Potassium 4.4 Chloride 112 H Carbon Dioxide 19 L Anion Gap 13 BUN 33 H Creatinine 1.4 H Creat Clearance w eGFR 47.72 Random Glucose 113 H Calcium 8.2 L Phosphorus 4.6 Magnesium 2.3 ASSESSMENT AND PLAN: 88 y/o M w/ PMHx A-fib (*eliquis recently discontinued*), CAD w/ stents x 2, 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 -Acute on ?chronic hypoxic respiratory distress/Acute copd exacerbation (>60 pack year smoking history)+/- Acute systolic HF exacerbation (new global hypokinesis) -Syncope, ?vasovagal compounded by dehydration/hypovolumia, less likely cardiac , low suspicion for PE -NSTEMi, ?type II from demand from above vs ACS (EKG with poor R wave progression compared to 01/2018) -New Mild to moderate LV dysfunction/Global hypokinesis,/Underlying CAD/silent OR, neg stress test -ALBERTA, ?hypovolumia, on underlying ?CKD -Hypernatremia, ?hypovolumic -Elevated BNP, clinical exam not consistent with volume overload -CAD s/p PCI x 2 -h/o CVA with left residual hemiparesis Plan: Breathing improved. IV steroids with taper. Pulmonary input appreciated. Lasix prn. Hold off on IVF. Encourage free water intake. Strict I/Os, Daily weights. Prior lung clips, ?History lung ca/COPD. Retrieve more info from PCP. New LV dysfunction on 2D echo. Cardiology input appreciated.Stress test neg for ischemia. ASA/statin/metoprolol. Losartan added. Stress test neg. Off heparin DVTPPX start heparin subq will need PT eval and CM consult for d/c planning when medical issues improve, encourage OOB and pT eval Dispo planning in 2-3 days if continues to improve. Plan discussed with nursing.
--- NOTE | 2018-07-07 12:19 | PN ---
Progress Note (short form) - Note Progress Note: Subjective:
--- NOTE | 2018-07-07 12:22 | PN ---
Progress Note (short form) - Note Progress Note: Subjective: --No acute overnight events Objective: Vital Signs 07/07/18 07/07/18 05:00 09:00 Temperature 98 F 97.8 F Pulse Rate 73 72 Respiratory 20 20 Rate Blood Pressure 162/90 181/96 H O2 Sat by Pulse 100 Oximetry (%) Gen: well appearing male sitting upright in NAD HEENT: NC/AT. OP Clear, MMM Cardiac: S1/S2 no murmurs Pulm: clear breath sounds bilaterally. No rales. Ext: WWP. No edema. Abnormal Lab Results 07/07/18 07/07/18 05:40 05:40 WBC 12.9 H RBC 3.73 L Hgb 8.5 L Hct 27.8 L MCV 74.6 L MCH 22.7 L MCHC 30.5 L RDW 19.7 H Chloride 112 H Carbon Dioxide 19 L BUN 33 H Creatinine 1.4 H Random Glucose 113 H Calcium 8.2 L Laboratory Last Values WBC 12.9 K/mm3 (4.0-10.0) H 07/07/18 05:40 RBC 3.73 M/mm3 (4.00-5.60) L 07/07/18 05:40 Hgb 8.5 GM/dL (11.7-16.9) L 07/07/18 05:40 Hct 27.8 % (35.4-49) L 07/07/18 05:40 MCV 74.6 fl (80-96) L 07/07/18 05:40 MCH 22.7 pg (25.7-33.7) L 07/07/18 05:40 MCHC 30.5 g/dl (32.0-35.9) L 07/07/18 05:40 RDW 19.7 % (11.9-15.9) H 07/07/18 05:40 Plt Count 303 K/MM3 (134-434) 07/07/18 05:40 MPV 8.7 fl (7.5-11.1) 07/07/18 05:40 Absolute Neuts (auto) 6.6 K/mm3 (1.5-8.0) 07/04/18 05:30 Neutrophils % 73.3 % (42.8-82.8) 07/04/18 05:30 Lymphocytes % 13.4 % (8-40) D 07/04/18 05:30 Monocytes % 9.4 % (3.8-10.2) 07/04/18 05:30 Eosinophils % 3.1 % (0-4.5) D 07/04/18 05:30 Basophils % 0.8 % (0-2.0) 07/04/18 05:30 Nucleated RBC % 0 % (0-0) 07/04/18 05:30 Platelet Estimate Increased 07/03/18 19:30 Platelet Comment No clumping noted 07/03/18 19:30 Anisocytosis 2+ 07/03/18 19:30 Microcytosis 1+ 07/03/18 19:30 PT with INR 12.40 SEC (9.7-13.0) 07/04/18 05:30 INR 1.05 (0.83-1.09) 07/04/18 05:30 PTT (Actin FS) 26.5 SECONDS (25.2-36.5) 07/07/18 05:40 Puncture Site Right radial 07/05/18 10:20 ABG pH 7.42 (7.35-7.45) 07/05/18 10:20 ABG pCO2 at Pt Temp 30.2 mmHg (35-45) L 07/05/18 10:20 ABG pO2 at Pt Temp 81.8 mmHg (68-100) 07/05/18 10:20 ABG HCO3 19.3 meq/L (22-26) L 07/05/18 10:20 ABG O2 Sat (Measured) 94.9 % (90-98.9) 07/05/18 10:20 ABG O2 Content 16.4 % vol (15-22) 07/05/18 10:20 ABG Base Excess -3.7 meq/l (-2-2) L 07/05/18 10:20 Luc Test Positive 07/05/18 10:20 Oxygen Flow Rate 3l 07/05/18 10:20 Sodium 144 mmol/L (136-145) 07/07/18 05:40 Potassium 4.4 mmol/L (3.5-5.1) 07/07/18 05:40 Chloride 112 mmol/L (98-107) H 07/07/18 05:40 Carbon Dioxide 19 mmol/L (21-32) L 07/07/18 05:40 Anion Gap 13 MMOL/L (8-16) 07/07/18 05:40 BUN 33 mg/dL (7-18) H 07/07/18 05:40 Creatinine 1.4 mg/dL (0.55-1.3) H 07/07/18 05:40 Creat Clearance w eGFR 47.72 (>60) 07/07/18 05:40 Random Glucose 113 mg/dL (74-106) H 07/07/18 05:40 Calcium 8.2 mg/dL (8.5-10.1) L 07/07/18 05:40 Phosphorus 4.6 mg/dL (2.5-4.9) 07/07/18 05:40 Magnesium 2.3 mg/dL (1.8-2.4) 07/07/18 05:40 Total Bilirubin 0.2 mg/dL (0.2-1) 07/06/18 06:00 AST 11 U/L (15-37) L 07/06/18 06:00 ALT 16 U/L (13-61) 07/06/18 06:00 Alkaline Phosphatase 77 U/L (45-117) 07/06/18 06:00 Creatine Kinase 109 IU/L (26-308) 07/03/18 19:30 Troponin I 0.53 ng/ml (0.00-0.05) H 07/04/18 05:30 B-Natriuretic Peptide 51331.9 pg/ml (5-450) H 07/04/18 05:30 Total Protein 5.6 g/dl (6.4-8.2) L 07/06/18 06:00 Albumin 2.1 g/dl (3.4-5.0) L 07/06/18 06:00 Triglycerides 60 mg/dL (0-150) 07/05/18 05:30 Cholesterol 112 mg/dL (50-200) 07/05/18 05:30 Total LDL Cholesterol 43 mg/dL (5-100) 07/05/18 05:30 HDL Cholesterol 60 mg/dL (40-60) 07/05/18 05:30 Urine Color Yellow 07/03/18 23:20 Urine Appearance Clear 07/03/18 23:20 Urine pH 5.0 (5.0-8.0) D 07/03/18 23:20 Ur Specific [place] 1.027 (1.010-1.035) 07/03/18 23:20 Urine Protein 1+ (NEGATIVE) H 07/03/18 23:20 Urine Glucose (UA) Negative (NEGATIVE) 07/03/18 23:20 Urine Ketones Negative (NEGATIVE) 07/03/18 23:20 Urine Blood Negative (NEGATIVE) 07/03/18 23:20 Urine Nitrite Negative (NEGATIVE) 07/03/18 23:20 Urine Bilirubin Negative (<2.0 mg/dL) 07/03/18 23:20 Urine Urobilinogen Negative mg/dL (0.2-1.0) 07/03/18 23:20 Ur Leukocyte Esterase Negative (NEGATIVE) 07/03/18 23:20 Urine WBC (Auto) 3 /hpf (3-5) 07/03/18 23:20 Urine RBC (Auto) 3 /hpf (0-3) 07/03/18 23:20 Urine Mucus Rare 07/03/18 23:20 Blood Type A POSITIVE 07/04/18 09:30 Antibody Screen Negative 07/04/18 05:30 Active Medications Albuterol Sulfate (Ventolin 0.083% Nebulizer Soln -) 1 amp NEB Q4H PRN PRN Reason: SHORT OF BREATH/WHEEZING Albuterol/Ipratropium (Duoneb -) 1 amp NEB RQID [facility] Last Admin: 07/07/18 11:43 Dose: 1 amp Aspirin (Ecotrin -) 81 mg PO DAILY [facility] Last Admin: 07/07/18 09:38 Dose: 81 mg Atorvastatin Calcium (Lipitor -) 40 mg PO HS [facility] Last Admin: 07/06/18 22:10 Dose: 40 mg Heparin Sodium (Porcine) (Heparin -) 5,000 unit SQ TID [facility] Losartan Potassium (Cozaar -) 25 mg PO DAILY [facility] Last Admin: 07/07/18 09:38 Dose: 25 mg Methylprednisolone Sodium Succinate (Solu-Medrol -) 40 mg IVPUSH Q8H-IV [facility] Last Admin: 07/07/18 09:38 Dose: 40 mg Metoprolol Tartrate (Lopressor -) 25 mg PO TID [facility] Last Admin: 07/07/18 06:42 Dose: 25 mg 88 y/o M w/ PMHx A-fib off of AC, CAD w/ stents x 2, 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 #Syncope Etiology: unclear Workup: --pharm stress negative for ischemia --ECG NSR with 1st degree AVB --telemetry without evidence of high degree AVB or pause, PACs and artifact --echocardiogram with mild to moderate dysfunction --abnormal carotids, please order MRA Treatment: --please consult neurology for further evaluation --if neurology evaluation without inconcusive can consider EP study #CAD: continue home medications #HTN; start hydralazine 25mg TID Stevan Gan MD
--- NOTE | 2018-07-07 13:17 | PN ---
Progress Note (short form) - Note Progress Note: Resting in NAD. Less SOB. No CP. No acute events overnight. Intake & Output 07/04/18 07/05/18 07/06/18 07/07/18 23:59 23:59 23:59 23:59 Intake Total 1174 2592 610 200 Balance 1174 2592 610 200 Weight 141 lb 141 lb Last Vital Signs Temp Pulse Resp BP Pulse Ox 97.8 F 72 20 181/96 H 100 07/07/18 09:00 07/07/18 09:00 07/07/18 09:00 07/07/18 09:00 07/07/18 09:00 Active Medications Albuterol Sulfate (Ventolin 0.083% Nebulizer Soln -) 1 amp NEB Q4H PRN PRN Reason: SHORT OF BREATH/WHEEZING Albuterol/Ipratropium (Duoneb -) 1 amp NEB RQID [facility] Last Admin: 07/07/18 11:43 Dose: 1 amp Aspirin (Ecotrin -) 81 mg PO DAILY [facility] Last Admin: 07/07/18 09:38 Dose: 81 mg Atorvastatin Calcium (Lipitor -) 40 mg PO HS [facility] Last Admin: 07/06/18 22:10 Dose: 40 mg Heparin Sodium (Porcine) (Heparin -) 5,000 unit SQ TID [facility] Losartan Potassium (Cozaar -) 25 mg PO DAILY [facility] Last Admin: 07/07/18 09:38 Dose: 25 mg Methylprednisolone Sodium Succinate (Solu-Medrol -) 40 mg IVPUSH Q8H-IV [facility] Last Admin: 07/07/18 09:38 Dose: 40 mg Metoprolol Tartrate (Lopressor -) 25 mg PO TID [facility] Last Admin: 07/07/18 06:42 Dose: 25 mg Constitutional: Yes: NAD Eyes: Yes: WNL HENT: Yes: WNL Neck: Yes: WNL Cardiovascular: Yes: Pulse Irregular, S1, S2 Respiratory: Yes: Diminished at the bases Gastrointestinal: Yes: Normal Bowel Sounds, Soft Extremities: Yes: WNL Edema: No Labs: Laboratory Results - last 24 hr 07/07/18 07/07/18 07/07/18 05:40 05:40 05:40 WBC 12.9 H RBC 3.73 L Hgb 8.5 L Hct 27.8 L MCV 74.6 L MCH 22.7 L MCHC 30.5 L RDW 19.7 H Plt Count 303 MPV 8.7 PTT (Actin FS) 26.5 Sodium 144 Potassium 4.4 Chloride 112 H Carbon Dioxide 19 L Anion Gap 13 BUN 33 H Creatinine 1.4 H Creat Clearance w eGFR 47.72 Random Glucose 113 H Calcium 8.2 L Phosphorus 4.6 Magnesium 2.3 Assessment/Plan Problem List - Problems (1) Syncope Code(s): R55 - SYNCOPE AND COLLAPSE Qualifiers: Syncope type: unspecified Qualified Code(s): R55 - Syncope and collapse (2) Elevated troponin Code(s): R74.8 - ABNORMAL LEVELS OF OTHER SERUM ENZYMES (3) CKD (chronic kidney disease) Code(s): N18.9 - CHRONIC KIDNEY DISEASE, UNSPECIFIED (4) HLD (hyperlipidemia) Code(s): E78.5 - HYPERLIPIDEMIA, UNSPECIFIED (5) HTN (hypertension) Code(s): I10 - ESSENTIAL (PRIMARY) HYPERTENSION Assessment/Plan Shortness of breath improving Acute COPD Exacerbation Favor Atelectasis > Pneumonia Acute on Chronic Renal Failure Metabolic Acidosis LV Systolic/Diastolic Dysfunction Atrial Fibrillation CAD h/o CVA - Wean Medrol - inhaled bronchodilators standing and PRN - taper O2 to keep Spo2 >90% - rate control - outpt PFTs if able - DVT prophylaxis Dr Jeong
[2018-07-07] MEDS: HEPARIN NA (PORCINE) 5,000 UNITS/ML 1ML VIAL SQ SCH ×2 (14:47→21:20)
--- NOTE | 2018-07-07 15:35 | PN ---
Progress Note, Physician History of Present Illness: Pt seen and examined at bedside. He is awake and alert. He denies shortness of breath. - Current Medication List Current Medications: Active Medications Albuterol Sulfate (Ventolin 0.083% Nebulizer Soln -) 1 amp NEB Q4H PRN PRN Reason: SHORT OF BREATH/WHEEZING Albuterol/Ipratropium (Duoneb -) 1 amp NEB RQID [facility] Last Admin: 07/07/18 11:43 Dose: 1 amp Aspirin (Ecotrin -) 81 mg PO DAILY [facility] Last Admin: 07/07/18 09:38 Dose: 81 mg Atorvastatin Calcium (Lipitor -) 40 mg PO HS [facility] Last Admin: 07/06/18 22:10 Dose: 40 mg Heparin Sodium (Porcine) (Heparin -) 5,000 unit SQ TID [facility] Losartan Potassium (Cozaar -) 25 mg PO DAILY [facility] Last Admin: 07/07/18 09:38 Dose: 25 mg Methylprednisolone Sodium Succinate (Solu-Medrol -) 40 mg IVPUSH Q8H-IV [facility] Last Admin: 07/07/18 09:38 Dose: 40 mg Metoprolol Tartrate (Lopressor -) 25 mg PO TID [facility] Last Admin: 07/07/18 06:42 Dose: 25 mg - Objective Vital Signs: Vital Signs Temperature 97.8 F 07/07/18 09:00 Pulse Rate 72 07/07/18 09:00 Respiratory Rate 20 07/07/18 09:00 Blood Pressure 181/96 H 07/07/18 09:00 O2 Sat by Pulse Oximetry (%) 100 07/07/18 09:00 Constitutional: Yes: Calm Eyes: Yes: Conjunctiva Clear HENT: Yes: Atraumatic Cardiovascular: Yes: S1, S2 Respiratory: Yes: On Nasal O2 Gastrointestinal: Yes: Soft Genitourinary: Yes: Incontinence Musculoskeletal: Yes: Muscle Weakness Edema: No Neurological: Yes: Oriented, Pre-Existing Deficit Labs: CBC, BMP 07/07/18 05:40 07/07/18 05:40 INR, PTT INR 1.05 (0.83-1.09) 07/04/18 05:30 Problem List - Problems (1) Hypernatremia Code(s): E87.0 - HYPEROSMOLALITY AND HYPERNATREMIA (2) Elevated troponin Code(s): R74.8 - ABNORMAL LEVELS OF OTHER SERUM ENZYMES (3) Syncope Code(s): R55 - SYNCOPE AND COLLAPSE Qualifiers: Syncope type: unspecified Qualified Code(s): R55 - Syncope and collapse (4) Anemia Code(s): D64.9 - ANEMIA, UNSPECIFIED (5) CKD (chronic kidney disease) Code(s): N18.9 - CHRONIC KIDNEY DISEASE, UNSPECIFIED (6) HLD (hyperlipidemia) Code(s): E78.5 - HYPERLIPIDEMIA, UNSPECIFIED (7) HTN (hypertension) Code(s): I10 - ESSENTIAL (PRIMARY) HYPERTENSION Assessment/Plan Current Medications Generic Name Dose Route Start Last Admin Trade Name Freq PRN Reason Stop Dose Admin Albuterol Sulfate 1 amp 07/05/18 14:02 Ventolin 0.083% Nebulizer Soln - NEB Q4H PRN SHORT OF BREATH/WHEEZING Albuterol/Ipratropium 1 amp 07/05/18 12:00 07/07/18 11:43 Duoneb - NEB 1 amp RQID [facility] Administration Aspirin 81 mg 07/07/18 10:00 07/07/18 09:38 Ecotrin - PO 81 mg DAILY [facility] Administration Atorvastatin Calcium 40 mg 07/04/18 22:00 07/06/18 22:10 Lipitor - PO 40 mg HS [facility] Administration Heparin Sodium (Porcine) 5,000 unit 07/07/18 14:00 Heparin - SQ TID [facility] Losartan Potassium 25 mg 07/06/18 10:00 07/07/18 09:38 Cozaar - PO 25 mg DAILY [facility] Administration Methylprednisolone Sodium Succinate 40 mg 07/05/18 18:00 07/07/18 09:38 Solu-Medrol - IVPUSH 40 mg Q8H-IV [facility] Administration Metoprolol Tartrate 25 mg 07/04/18 06:00 07/07/18 06:42 Lopressor - PO 25 mg TID [facility] Administration Impression 1. CKD 2. syncope 3. a-fib 4. cva 5. hld 6. ALBERTA 7. hypernatremia Plan - sodium stable - renal function is stable - will continue to monitor - steroids with taper - encourage PO intake - lasix as needed - cont nebs - will follow Dr Cramer
[2018-07-07] MEDS: hydrALAZINE HCL 25 MG TABLET (FP) PO SCH (21:20)
[2018-07-07] MEDS: ATORVASTATIN CA 40 MG TABLET (FP) PO SCH (21:20)
[2018-07-08] MEDS: methylPREDNISolone NA SUCC 40 MG/1 ML VIAL IVPUSH SCH ×2 (02:40→11:09)
[2018-07-08] MEDS: HEPARIN NA (PORCINE) 5,000 UNITS/ML 1ML VIAL SQ SCH ×3 (07:08→22:44)
[2018-07-08] MEDS: METOPROLOL TARTRATE 25 MG TABLET (FP) PO SCH ×3 (07:09→22:44)
[2018-07-08] MEDS: hydrALAZINE HCL 25 MG TABLET (FP) PO SCH ×3 (07:09→22:44)
[2018-07-08 07:54] LABS: HEMATOCRIT 25.6 % (35.4-49); HEMOGLOBIN 8.5 GM/dL (11.7-16.9); LYMPH % 3.4 % (8-40); MCH 24.5 pg (25.7-33.7); MCHC 33.2 g/dl (32.0-35.9); MEAN CELL VOLUME 73.7 fl (80-96); MEAN PLT VOLUME 8.8 fl (7.5-11.1); MONO % 2.7 % (3.8-10.2); NEUT % 93.9 % (42.8-82.8); PLATELET COUNT 322 K/MM3 (134-434); RBC 3.48 M/mm3 (4.00-5.60); RDW 19.4 % (11.9-15.9); WHITE BLOOD COUNT 10.4 K/mm3 (4.0-10.0)
[2018-07-08] MEDS: ALBUTEROL SO4 2.5/IPRATROPIUM 0.5 INH SOL 3 ML VIAL.NEB. NEB SCH ×4 (08:30→20:58)
[2018-07-08 08:55] LABS: ALBUMIN 2.2 g/dl (3.4-5.0); ALK PHOS 69 U/L (45-117); ANION GAP 9 MMOL/L (8-16); BILIRUBIN,TOTAL 0.2 mg/dL (0.2-1); BLOOD UREA NITROGEN 38 mg/dL (7-18); CALCIUM 8.2 mg/dL (8.5-10.1); CHLORIDE 114 mmol/L (98-107); CO2 22 mmol/L (21-32); CREATININE 1.4 mg/dL (0.55-1.3); GLUCOSE,RANDOM 125 mg/dL (74-106); POTASSIUM 4.5 mmol/L (3.5-5.1); SGOT/AST 15 U/L (15-37); SGPT/ALT 21 U/L (13-61); SODIUM 145 mmol/L (136-145); TOT PROT 5.5 g/dl (6.4-8.2)
--- NOTE | 2018-07-08 10:56 | PN ---
Progress Note (short form) - Note Progress Note: Subjective: --No acute overnight events Objective: Vital Signs 07/08/18 07/08/18 07/08/18 06:00 08:40 08:50 Temperature 97.8 F 97.6 F Pulse Rate 69 79 Respiratory 18 16 16 Rate Blood Pressure 186/89 H 171/78 H O2 Sat by Pulse 98 Oximetry (%) Gen: well appearing male sitting upright in NAD HEENT: NC/AT. OP Clear, MMM Cardiac: S1/S2 no murmurs Pulm: clear breath sounds bilaterally. No rales. Ext: WWP. No edema. Laboratory Results - last 24 hr 07/08/18 07/08/18 07/08/18 05:30 05:30 05:30 WBC 10.4 H RBC 3.48 L Hgb 8.5 L Hct 25.6 L MCV 73.7 L MCH 24.5 L MCHC 33.2 RDW 19.4 H Plt Count 322 MPV 8.8 Absolute Neuts (auto) 9.8 H Neutrophils % 93.9 H D Lymphocytes % 3.4 L D Monocytes % 2.7 L Eosinophils % 0.0 D Basophils % 0.0 Nucleated RBC % 0 PTT (Actin FS) 27.2 Sodium 145 Potassium 4.5 Chloride 114 H Carbon Dioxide 22 Anion Gap 9 BUN 38 H Creatinine 1.4 H Creat Clearance w eGFR 47.72 Random Glucose 125 H Calcium 8.2 L Total Bilirubin 0.2 AST 15 ALT 21 Alkaline Phosphatase 69 Total Protein 5.5 L Albumin 2.2 L Active Medications Albuterol Sulfate (Ventolin 0.083% Nebulizer Soln -) 1 amp NEB Q4H PRN PRN Reason: SHORT OF BREATH/WHEEZING Albuterol/Ipratropium (Duoneb -) 1 amp NEB RQID [facility] Last Admin: 07/08/18 08:30 Dose: 1 amp Aspirin (Ecotrin -) 81 mg PO DAILY [facility] Last Admin: 07/07/18 09:38 Dose: 81 mg Atorvastatin Calcium (Lipitor -) 40 mg PO HS [facility] Last Admin: 07/07/18 21:20 Dose: 40 mg Heparin Sodium (Porcine) (Heparin -) 5,000 unit SQ TID [facility] Last Admin: 07/08/18 07:08 Dose: 5,000 unit Hydralazine HCl (Apresoline -) 25 mg PO TID [facility] Last Admin: 07/08/18 07:09 Dose: 25 mg Losartan Potassium (Cozaar -) 25 mg PO DAILY [facility] Last Admin: 07/07/18 09:38 Dose: 25 mg Methylprednisolone Sodium Succinate (Solu-Medrol -) 40 mg IVPUSH Q8H-IV [facility] Last Admin: 07/08/18 02:40 Dose: 40 mg Metoprolol Tartrate (Lopressor -) 25 mg PO TID [facility] Last Admin: 07/08/18 07:09 Dose: 25 mg 88 y/o M w/ PMHx A-fib off of AC, CAD w/ stents x 2, 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 #Syncope Etiology: unclear Workup: --pharm stress negative for ischemia --ECG NSR with 1st degree AVB --telemetry without evidence of high degree AVB or pause --echocardiogram with mild to moderate dysfunction --abnormal carotids, please order MRA Treatment: --please consult neurology for further evaluation --if neurology evaluation without inconcusive can consider EP study #CAD: continue home medications #HTN; continue hydralazine 25mg TID, increase to 50mg if BP remains >140 Stevan Gan MD
[2018-07-08] MEDS: LOSARTAN POTASSIUM 50 MG TABLET (FP) PO SCH (11:01)
[2018-07-08] MEDS: ASPIRIN COATED 81 MG TABLET.EC PO SCH (11:01)
--- NOTE | 2018-07-08 11:48 | PN ---
Physical Exam: SUBJECTIVE: Patient seen and examined, awake, denies any pain, family at bedside , pleasant and interactive, no complaints. OBJECTIVE: Vital Signs Period Temp Pulse Resp BP Sys/Canales Pulse Ox Last 24 Hr 97.4 F-98.6 F 69-89 16-23 155-186/75-89 98-98 GENERAL: awake, oriented to self, in no acute distress Chest: improved air entry, no wheezing or rales currently neck: soft, supple, no JVD Abdomen:soft, NT, ND, positive bowel sounds Extremities: no edema neuro; AAOX1, pleasant, left hemiparesis Laboratory Results - last 24 hr 07/08/18 07/08/18 07/08/18 05:30 05:30 05:30 WBC 10.4 H RBC 3.48 L Hgb 8.5 L Hct 25.6 L MCV 73.7 L MCH 24.5 L MCHC 33.2 RDW 19.4 H Plt Count 322 MPV 8.8 Absolute Neuts (auto) 9.8 H Neutrophils % 93.9 H D Lymphocytes % 3.4 L D Monocytes % 2.7 L Eosinophils % 0.0 D Basophils % 0.0 Nucleated RBC % 0 PTT (Actin FS) 27.2 Sodium 145 Potassium 4.5 Chloride 114 H Carbon Dioxide 22 Anion Gap 9 BUN 38 H Creatinine 1.4 H Creat Clearance w eGFR 47.72 Random Glucose 125 H Calcium 8.2 L Total Bilirubin 0.2 AST 15 ALT 21 Alkaline Phosphatase 69 Total Protein 5.5 L Albumin 2.2 L Active Medications Generic Name Dose Route Start Last Admin Trade Name Freq PRN Reason Stop Dose Admin Albuterol Sulfate 1 amp 07/05/18 14:02 Ventolin 0.083% Nebulizer Soln - NEB Q4H PRN SHORT OF BREATH/WHEEZING Albuterol/Ipratropium 1 amp 07/05/18 12:00 07/08/18 08:30 Duoneb - NEB 1 amp RQID [facility] Administration Aspirin 81 mg 07/07/18 10:00 07/08/18 11:01 Ecotrin - PO 81 mg DAILY [facility] Administration Atorvastatin Calcium 40 mg 07/04/18 22:00 07/07/18 21:20 Lipitor - PO 40 mg HS [facility] Administration Heparin Sodium (Porcine) 5,000 unit 07/07/18 14:00 07/08/18 07:08 Heparin - SQ 5,000 unit TID [facility] Administration Hydralazine HCl 25 mg 07/07/18 22:00 07/08/18 07:09 Apresoline - PO 25 mg TID [facility] Administration Losartan Potassium 25 mg 07/08/18 11:43 Cozaar - PO 07/08/18 11:44 ONCE ONE Losartan Potassium 50 mg 07/08/18 11:43 Cozaar - PO DAILY [facility] Methylprednisolone Sodium Succinate 40 mg 07/08/18 20:00 Solu-Medrol - IVPUSH Q12H [facility] Metoprolol Tartrate 25 mg 07/04/18 06:00 07/08/18 07:09 Lopressor - PO 25 mg TID [facility] Administration ASSESSMENT/PLAN: 88 y/o M w/ PMHx A-fib (*eliquis recently discontinued*), CAD w/ stents x 2, 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 -Acute on ?chronic hypoxic respiratory distress/Acute copd exacerbation (>60 pack year smoking history)+/- Acute systolic HF exacerbation (new global hypokinesis) -Syncope, ?vasovagal compounded by dehydration/hypovolumia, less likely cardiac , low suspicion for PE -NSTEMi, ?type II from demand from above vs ACS (EKG with poor R wave progression compared to 01/2018) -New Mild to moderate LV dysfunction/Global hypokinesis,/Underlying CAD/silent AL, neg stress test -ALBERTA, ?hypovolumia, on underlying ?CKD -Hypernatremia, ?hypovolumic -Elevated BNP, clinical exam not consistent with volume overload -CAD s/p PCI x 2 -h/o CVA with left residual hemiparesis Plan: Breathing improved.taper IV steroids, transition to PO In AM. Pulmonary input appreciated. Lasix prn. Hold off on IVF. Encourage free water intake. Strict I/Os, Daily weights. Prior lung clips, ?History lung ca/COPD. Retrieve more info from PCP. New LV dysfunction on 2D echo. Cardiology input appreciated.Stress test neg for ischemia. ASA/statin/metoprolol. Hypertensive. Losartan/Hydralazine added. renal function stable. Increase losartan and monitor. DVTPPX start heparin subq PT eval and Cm consult. Assess for home oxygen needs. D/c in 24-48 hours if improves and disposition arrangements made. Visit type - Emergency Visit Emergency Visit: Yes ED Registration Date: 07/04/18 Care time: The patient presented to the Emergency Department on the above date and was hospitalized for further evaluation of their emergent condition. - New Patient This patient is new to me today: No - Critical Care Critical Care patient: No - Discharge Referral Referred to [facility] No
[2018-07-08] MEDS ORDERED: LOSARTAN POTASSIUM 25 MG TABLET PO ONE (12:00)
[2018-07-08 12:32] LABS: ACANTHOCYTES 1+; ANISOCYTOSIS 2+; MACROCYTOSIS 0; OVALOCYTE 1+; PLATELET ESTIMATE NORMAL; TARGET CELLS 1+
--- NOTE | 2018-07-08 15:10 | PN ---
Progress Note (short form) - Note Progress Note: Resting in NAD. Less SOB. No CP. No acute events overnight. Intake & Output 07/05/18 07/06/18 07/07/18 07/08/18 23:59 23:59 23:59 23:59 Intake Total 2592 610 590 130 Balance 2592 610 590 130 Weight 141 lb 139 lb 3.2 oz Last Vital Signs Temp Pulse Resp BP Pulse Ox 97.6 F 79 16 171/78 H 98 07/08/18 08:40 07/08/18 08:40 07/08/18 08:50 07/08/18 08:40 07/08/18 08:50 Active Medications Albuterol Sulfate (Ventolin 0.083% Nebulizer Soln -) 1 amp NEB Q4H PRN PRN Reason: SHORT OF BREATH/WHEEZING Albuterol/Ipratropium (Duoneb -) 1 amp NEB RQID [facility] Last Admin: 07/08/18 12:19 Dose: 1 amp Aspirin (Ecotrin -) 81 mg PO DAILY [facility] Last Admin: 07/08/18 11:01 Dose: 81 mg Atorvastatin Calcium (Lipitor -) 40 mg PO HS [facility] Last Admin: 07/07/18 21:20 Dose: 40 mg Heparin Sodium (Porcine) (Heparin -) 5,000 unit SQ TID [facility] Last Admin: 07/08/18 15:04 Dose: 5,000 unit Hydralazine HCl (Apresoline -) 25 mg PO TID [facility] Last Admin: 07/08/18 15:02 Dose: 25 mg Losartan Potassium (Cozaar -) 50 mg PO DAILY [facility] Methylprednisolone Sodium Succinate (Solu-Medrol -) 40 mg IVPUSH BID [facility] Metoprolol Tartrate (Lopressor -) 25 mg PO TID [facility] Last Admin: 07/08/18 15:02 Dose: 25 mg Constitutional: Yes: NAD Eyes: Yes: WNL HENT: Yes: WNL Neck: Yes: WNL Cardiovascular: Yes: Pulse Irregular, S1, S2 Respiratory: Yes: Diminished at the bases Gastrointestinal: Yes: Normal Bowel Sounds, Soft Extremities: Yes: WNL Edema: No Labs: Laboratory Results - last 24 hr 07/08/18 07/08/18 07/08/18 05:30 05:30 05:30 WBC 10.4 H RBC 3.48 L Hgb 8.5 L Hct 25.6 L MCV 73.7 L MCH 24.5 L MCHC 33.2 RDW 19.4 H Plt Count 322 MPV 8.8 Absolute Neuts (auto) 9.8 H Neutrophils % 93.9 H D Neutrophils % (Manual) 21.8 L Band Neutrophils % 4.0 Lymphocytes % 3.4 L D Lymphocytes % (Manual) 3.0 L Monocytes % 2.7 L Monocytes % (Manual) 4 Eosinophils % 0.0 D Eosinophils % (Manual) 66.3 H Basophils % 0.0 Basophils % (Manual) 0.0 Myelocytes % (Man) 0 Promyelocytes % (Man) 0 Blast Cells % (Manual) 0 Nucleated RBC % 0 Metamyelocytes 0 Hypochromia 0 Platelet Estimate Normal Polychromasia 0 Poikilocytosis 1+ Anisocytosis 2+ Microcytosis 2+ Macrocytosis 0 Spherocytes 1+ Target Cells 1+ Ovalocytes 1+ [place] Cells 1+ Acanthocytes (Spur) 1+ PTT (Actin FS) 27.2 Sodium 145 Potassium 4.5 Chloride 114 H Carbon Dioxide 22 Anion Gap 9 BUN 38 H Creatinine 1.4 H Creat Clearance w eGFR 47.72 Random Glucose 125 H Calcium 8.2 L Total Bilirubin 0.2 AST 15 ALT 21 Alkaline Phosphatase 69 Total Protein 5.5 L Albumin 2.2 L Assessment/Plan Problem List - Problems (1) Syncope Code(s): R55 - SYNCOPE AND COLLAPSE Qualifiers: Syncope type: unspecified Qualified Code(s): R55 - Syncope and collapse (2) Elevated troponin Code(s): R74.8 - ABNORMAL LEVELS OF OTHER SERUM ENZYMES (3) CKD (chronic kidney disease) Code(s): N18.9 - CHRONIC KIDNEY DISEASE, UNSPECIFIED (4) HLD (hyperlipidemia) Code(s): E78.5 - HYPERLIPIDEMIA, UNSPECIFIED (5) HTN (hypertension) Code(s): I10 - ESSENTIAL (PRIMARY) HYPERTENSION Assessment/Plan Shortness of breath improving Acute COPD Exacerbation Favor Atelectasis > Pneumonia Acute on Chronic Renal Failure Metabolic Acidosis LV Systolic/Diastolic Dysfunction Atrial Fibrillation CAD h/o CVA - Can likely change Medrol to Prednisone in AM - inhaled bronchodilators standing and PRN - taper O2 to keep Spo2 >90% - rate control - outpt PFTs if able - DVT prophylaxis Dr Jeong
--- NOTE | 2018-07-08 16:02 | PN ---
Progress Note, Physician History of Present Illness: Pt seen and examined at bedside. He is awake and alert. He denies shortness breath. He is tolerating diet. - Current Medication List Current Medications: Active Medications Albuterol Sulfate (Ventolin 0.083% Nebulizer Soln -) 1 amp NEB Q4H PRN PRN Reason: SHORT OF BREATH/WHEEZING Albuterol/Ipratropium (Duoneb -) 1 amp NEB RQID [facility] Last Admin: 07/08/18 15:55 Dose: 1 amp Aspirin (Ecotrin -) 81 mg PO DAILY [facility] Last Admin: 07/08/18 11:01 Dose: 81 mg Atorvastatin Calcium (Lipitor -) 40 mg PO HS [facility] Last Admin: 07/07/18 21:20 Dose: 40 mg Heparin Sodium (Porcine) (Heparin -) 5,000 unit SQ TID [facility] Last Admin: 07/08/18 15:04 Dose: 5,000 unit Hydralazine HCl (Apresoline -) 25 mg PO TID [facility] Last Admin: 07/08/18 15:02 Dose: 25 mg Losartan Potassium (Cozaar -) 50 mg PO DAILY [facility] Methylprednisolone Sodium Succinate (Solu-Medrol -) 40 mg IVPUSH BID [facility] Metoprolol Tartrate (Lopressor -) 25 mg PO TID [facility] Last Admin: 07/08/18 15:02 Dose: 25 mg - Objective Vital Signs: Vital Signs Temperature 97.4 F L 07/08/18 14:15 Pulse Rate 98 H 07/08/18 14:15 Respiratory Rate 18 07/08/18 14:15 Blood Pressure 164/75 07/08/18 14:15 O2 Sat by Pulse Oximetry (%) 98 07/08/18 08:50 Constitutional: Yes: Calm Eyes: Yes: Conjunctiva Clear HENT: Yes: Atraumatic Cardiovascular: Yes: S1, S2 Respiratory: Yes: CTA Bilaterally, On Nasal O2 Gastrointestinal: Yes: Soft Genitourinary: Yes: Incontinence Musculoskeletal: Yes: Muscle Weakness Edema: No Neurological: Yes: Oriented, Pre-Existing Deficit Labs: CBC, BMP 07/08/18 05:30 07/08/18 05:30 INR, PTT INR 1.05 (0.83-1.09) 07/04/18 05:30 Problem List - Problems (1) Hypernatremia Code(s): E87.0 - HYPEROSMOLALITY AND HYPERNATREMIA (2) Elevated troponin Code(s): R74.8 - ABNORMAL LEVELS OF OTHER SERUM ENZYMES (3) Syncope Code(s): R55 - SYNCOPE AND COLLAPSE Qualifiers: Syncope type: unspecified Qualified Code(s): R55 - Syncope and collapse (4) Anemia Code(s): D64.9 - ANEMIA, UNSPECIFIED (5) CKD (chronic kidney disease) Code(s): N18.9 - CHRONIC KIDNEY DISEASE, UNSPECIFIED (6) HLD (hyperlipidemia) Code(s): E78.5 - HYPERLIPIDEMIA, UNSPECIFIED (7) HTN (hypertension) Code(s): I10 - ESSENTIAL (PRIMARY) HYPERTENSION Assessment/Plan Current Medications Generic Name Dose Route Start Last Admin Trade Name Freq PRN Reason Stop Dose Admin Albuterol Sulfate 1 amp 07/05/18 14:02 Ventolin 0.083% Nebulizer Soln - NEB Q4H PRN SHORT OF BREATH/WHEEZING Albuterol/Ipratropium 1 amp 07/05/18 12:00 07/08/18 15:55 Duoneb - NEB 1 amp RQID [facility] Administration Aspirin 81 mg 07/07/18 10:00 07/08/18 11:01 Ecotrin - PO 81 mg DAILY [facility] Administration Atorvastatin Calcium 40 mg 07/04/18 22:00 07/07/18 21:20 Lipitor - PO 40 mg HS [facility] Administration Heparin Sodium (Porcine) 5,000 unit 07/07/18 14:00 07/08/18 15:04 Heparin - SQ 5,000 unit TID [facility] Administration Hydralazine HCl 25 mg 07/07/18 22:00 07/08/18 15:02 Apresoline - PO 25 mg TID [facility] Administration Losartan Potassium 50 mg 07/09/18 10:00 Cozaar - PO DAILY [facility] Methylprednisolone Sodium Succinate 40 mg 07/08/18 22:00 Solu-Medrol - IVPUSH BID [facility] Metoprolol Tartrate 25 mg 07/04/18 06:00 07/08/18 15:02 Lopressor - PO 25 mg TID [facility] Administration Impression 1. CKD 2. syncope 3. a-fib 4. cva 5. hld 6. ALBERTA 7. hypernatremia Plan - monitor renal function - can see in office - pulm input appreciated - encourage PO intake - lasix as needed - cont nebs - will follow Dr Cramer
[2018-07-08] MEDS ORDERED: methylPREDNISolone NA SUCC 40 MG/1 ML VIAL IVPUSH SCH (22:00)
[2018-07-08] MEDS: ATORVASTATIN CA 40 MG TABLET (FP) PO SCH (22:44)
[2018-07-09] MEDS: HEPARIN NA (PORCINE) 5,000 UNITS/ML 1ML VIAL SQ SCH ×2 (07:03→13:09)
[2018-07-09] MEDS: METOPROLOL TARTRATE 25 MG TABLET (FP) PO SCH ×2 (07:03→13:09)
[2018-07-09] MEDS: hydrALAZINE HCL 25 MG TABLET (FP) PO SCH (07:03)
[2018-07-09] MEDS: ALBUTEROL SO4 2.5/IPRATROPIUM 0.5 INH SOL 3 ML VIAL.NEB. NEB SCH ×3 (07:20→15:29)
[2018-07-09 07:35] LABS: HEMATOCRIT 26.4 % (35.4-49); HEMOGLOBIN 8.2 GM/dL (11.7-16.9); MCH 23.1 pg (25.7-33.7); MCHC 31.1 g/dl (32.0-35.9); MEAN CELL VOLUME 74.3 fl (80-96); MEAN PLT VOLUME 8.7 fl (7.5-11.1); PLATELET COUNT 303 K/MM3 (134-434); RBC 3.55 M/mm3 (4.00-5.60); RDW 19.7 % (11.9-15.9); WHITE BLOOD COUNT 9.6 K/mm3 (4.0-10.0)
[2018-07-09 08:08] LABS: ANION GAP 7 MMOL/L (8-16); BLOOD UREA NITROGEN 38 mg/dL (7-18); CALCIUM 8.1 mg/dL (8.5-10.1); CHLORIDE 113 mmol/L (98-107); CO2 23 mmol/L (21-32); CREATININE 1.3 mg/dL (0.55-1.3); GLUCOSE,RANDOM 123 mg/dL (74-106); MAGNESIUM 2.2 mg/dL (1.8-2.4); PHOSPHOROUS 2.9 mg/dL (2.5-4.9); SODIUM 144 mmol/L (136-145)
--- NOTE | 2018-07-09 08:22 | PN ---
Teaching Attending Note Name of Resident: Loan Stockton ATTENDING PHYSICIAN STATEMENT I saw and evaluated the patient. I reviewed the resident's note and discussed the case with the resident. I agree with the resident's findings and plan as documented with exceptions below. SUBJECTIVE: Patient seen and examined. Breathing improved, no pain or new concerns. OBJECTIVE: Vital Signs Period Temp Pulse Resp BP Sys/Canales Pulse Ox Last 24 Hr 97.4 F-98.7 F 59-98 16-20 145-171/72-88 97-98 Intake & Output 07/06/18 07/07/18 07/08/18 07/09/18 23:59 23:59 23:59 23:59 Intake Total 610 590 370 Output Total 500 Balance 610 590 370 -500 Weight 141 lb 139 lb 3.2 oz 141 lb General: lying in bed in no acute distress chest: improved air entry, no wheezing Abdomen:Soft, NT, ND, positive bowel sounds Extremities: no edema Active Medications Albuterol Sulfate (Ventolin 0.083% Nebulizer Soln -) 1 amp NEB Q4H PRN PRN Reason: SHORT OF BREATH/WHEEZING Albuterol/Ipratropium (Duoneb -) 1 amp NEB RQID [facility] Last Admin: 07/09/18 07:20 Dose: 1 amp Aspirin (Ecotrin -) 81 mg PO DAILY [facility] Last Admin: 07/08/18 11:01 Dose: 81 mg Atorvastatin Calcium (Lipitor -) 40 mg PO HS [facility] Last Admin: 07/08/18 22:44 Dose: 40 mg Heparin Sodium (Porcine) (Heparin -) 5,000 unit SQ TID [facility] Last Admin: 07/09/18 07:03 Dose: 5,000 unit Hydralazine HCl (Apresoline -) 25 mg PO TID [facility] Last Admin: 07/09/18 07:03 Dose: 25 mg Losartan Potassium (Cozaar -) 50 mg PO DAILY [facility] Metoprolol Tartrate (Lopressor -) 25 mg PO TID [facility] Last Admin: 07/09/18 07:03 Dose: 25 mg Prednisone (Deltasone -) 60 mg PO DAILY [facility] Laboratory Results - last 24 hr 07/08/18 07/08/18 07/09/18 05:30 05:30 05:30 WBC 9.6 RBC 3.55 L Hgb 8.2 L Hct 26.4 L MCV 74.3 L MCH 23.1 L MCHC 31.1 L RDW 19.7 H Plt Count 303 MPV 8.7 Neutrophils % (Manual) 21.8 L Band Neutrophils % 4.0 Lymphocytes % (Manual) 3.0 L Monocytes % (Manual) 4 Eosinophils % (Manual) 66.3 H Basophils % (Manual) 0.0 Myelocytes % (Man) 0 Promyelocytes % (Man) 0 Blast Cells % (Manual) 0 Metamyelocytes 0 Hypochromia 0 Platelet Estimate Normal Polychromasia 0 Poikilocytosis 1+ Anisocytosis 2+ Microcytosis 2+ Macrocytosis 0 Spherocytes 1+ Target Cells 1+ Ovalocytes 1+ [place] Cells 1+ Acanthocytes (Spur) 1+ PTT (Actin FS) Sodium 145 Potassium 4.5 Chloride 114 H Carbon Dioxide 22 Anion Gap 9 BUN 38 H Creatinine 1.4 H Creat Clearance w eGFR 47.72 Random Glucose 125 H Calcium 8.2 L Phosphorus Magnesium Total Bilirubin 0.2 AST 15 ALT 21 Alkaline Phosphatase 69 Total Protein 5.5 L Albumin 2.2 L 07/09/18 07/09/18 05:30 05:30 WBC RBC Hgb Hct MCV MCH MCHC RDW Plt Count MPV Neutrophils % (Manual) Band Neutrophils % Lymphocytes % (Manual) Monocytes % (Manual) Eosinophils % (Manual) Basophils % (Manual) Myelocytes % (Man) Promyelocytes % (Man) Blast Cells % (Manual) Metamyelocytes Hypochromia Platelet Estimate Polychromasia Poikilocytosis Anisocytosis Microcytosis Macrocytosis Spherocytes Target Cells Ovalocytes Lesa Cells Acanthocytes (Spur) PTT (Actin FS) 30.0 Sodium 144 Potassium 5.0 Chloride 113 H Carbon Dioxide 23 Anion Gap 7 L BUN 38 H Creatinine 1.3 Creat Clearance w eGFR 51.98 Random Glucose 123 H Calcium 8.1 L Phosphorus 2.9 Magnesium 2.2 Total Bilirubin AST ALT Alkaline Phosphatase Total Protein Albumin ASSESSMENT AND PLAN: 88 y/o M w/ PMHx A-fib (*eliquis recently discontinued*), CAD w/ stents x 2, 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 -Acute on ?chronic hypoxic respiratory distress/Acute copd exacerbation (>60 pack year smoking history)+/- Acute systolic HF exacerbation (new global hypokinesis) -Syncope, ?vasovagal compounded by dehydration/hypovolumia, less likely cardiac , low suspicion for PE -NSTEMi, ?type II from demand from above vs ACS (EKG with poor R wave progression compared to 01/2018) -New Mild to moderate LV dysfunction/Global hypokinesis,/Underlying CAD/silent SD, neg stress test -ALBERTA, ?hypovolumia, on underlying ?CKD -Hypernatremia, ?hypovolumic -Elevated BNP, clinical exam not consistent with volume overload -CAD s/p PCI x 2 -h/o CVA with left residual hemiparesis Plan: Breathing improved.Change to PO prednisone. Pulmonary input appreciated. Lasix prn. Hold off on IVF. Encourage free water intake. Strict I/Os, Daily weights. Potassium rising. Will d/c losartan for now and increase hydralazine to 50 mg BID. Will need to rechallenge with ARB in the future based on renal function and potassium levels. Prior lung clips, Discussed with daughter Shira, patient with known lung surgery for 'mass' that was reportedly benign. Also confirms 40 pack year smoking history. New LV dysfunction on 2D echo. Cardiology input appreciated.Stress test neg for ischemia. ASA/statin/metoprolol. renal function stable. PT eval noted, rec SNF. 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 Wants to take patient home and comfortable with 24 hour assist and supervision. Discuss with social work. Pre and post oxygen evaluation done, patient non ambulatory, rest oxygen sats noted. Dc home with services today with outpatient pulmonary, Renal and PCP follow up.
[2018-07-09] MEDS: ASPIRIN COATED 81 MG TABLET.EC PO SCH (09:17)
[2018-07-09 09:25] LABS: URINE APPEARANCE TURBID; URINE BILIRUBIN NEGATIVE (<2.0 mg/dL); URINE COLOR YELLOW; URINE GLUCOSE (UA) NEGATIVE (NEGATIVE); URINE KETONE NEGATIVE (NEGATIVE); URINE LEUK ESTERASE NEGATIVE (NEGATIVE); URINE NITRITE POSITIVE (NEGATIVE); URINE PROTEIN 1+ (NEGATIVE); URINE UROBILINOGEN NEGATIVE mg/dL (0.2-1.0)
[2018-07-09 09:27] LABS: EPI CELLS RARE /HPF (FEW); URINE BACTERIA MANY /hpf (NONE SEEN); URINE HYALINE CAST 2 /lpf; URINE MUCUS FEW
[2018-07-09] MEDS ORDERED: predniSONE 20 MG TABLET (UD) PO SCH (10:00)
[2018-07-09] MEDS ORDERED: hydrALAZINE HCL 50 MG TABLET (FP) PO SCH (10:00)
[2018-07-09] MEDS ORDERED: LOSARTAN POTASSIUM 50 MG TABLET (FP) PO SCH (10:00)
--- NOTE | 2018-07-09 11:04 | PN ---
Progress Note, Physician History of Present Illness: pulmonary awake,comfortable,-resp distress - Current Medication List Current Medications: Active Medications Albuterol Sulfate (Ventolin 0.083% Nebulizer Soln -) 1 amp NEB Q4H PRN PRN Reason: SHORT OF BREATH/WHEEZING Albuterol/Ipratropium (Duoneb -) 1 amp NEB RQID [facility] Last Admin: 07/09/18 07:20 Dose: 1 amp Aspirin (Ecotrin -) 81 mg PO DAILY [facility] Last Admin: 07/09/18 09:17 Dose: 81 mg Atorvastatin Calcium (Lipitor -) 40 mg PO HS [facility] Last Admin: 07/08/18 22:44 Dose: 40 mg Heparin Sodium (Porcine) (Heparin -) 5,000 unit SQ TID [facility] Last Admin: 07/09/18 07:03 Dose: 5,000 unit Hydralazine HCl (Apresoline -) 50 mg PO BID [facility] Last Admin: 07/09/18 09:17 Dose: 50 mg Metoprolol Tartrate (Lopressor -) 25 mg PO TID [facility] Last Admin: 07/09/18 07:03 Dose: 25 mg Prednisone (Deltasone -) 60 mg PO DAILY [facility] Last Admin: 07/09/18 09:17 Dose: 60 mg - Objective Vital Signs: Vital Signs Temperature 98 F 07/09/18 10:00 Pulse Rate 78 07/09/18 10:00 Respiratory Rate 18 07/09/18 10:00 Blood Pressure 156/70 07/09/18 10:00 O2 Sat by Pulse Oximetry (%) 92 L 07/09/18 09:42 Constitutional: Yes: Well Nourished, Calm Eyes: Yes: WNL HENT: Yes: WNL Neck: Yes: WNL Cardiovascular: Yes: Pulse Irregular, S1, S2 Respiratory: Yes: Diminished, Wheezes (few wheezes) Gastrointestinal: Yes: Normal Bowel Sounds, Soft Extremities: Yes: WNL Edema: No Labs: CBC, BMP 07/09/18 05:30 07/09/18 05:30 INR, PTT INR 1.05 (0.83-1.09) 07/04/18 05:30 Assessment/Plan Problem List - Problems (1) Syncope Code(s): R55 - SYNCOPE AND COLLAPSE Qualifiers: Syncope type: unspecified Qualified Code(s): R55 - Syncope and collapse (2) Elevated troponin Code(s): R74.8 - ABNORMAL LEVELS OF OTHER SERUM ENZYMES (3) CKD (chronic kidney disease) Code(s): N18.9 - CHRONIC KIDNEY DISEASE, UNSPECIFIED (4) HLD (hyperlipidemia) Code(s): E78.5 - HYPERLIPIDEMIA, UNSPECIFIED (5) HTN (hypertension) Code(s): I10 - ESSENTIAL (PRIMARY) HYPERTENSION Assessment/Plan Shortness of breath improving r/o Acute COPD Exacerbation Favor Atelectasis > Pneumonia Acute on Chronic Renal Failure Metabolic Acidosis LV Systolic/Diastolic Dysfunction Atrial Fibrillation CAD h/o CVA - pt with prolonged expiratory phase, likely has underlying COPD so may not be able to comfortably compensate with tachypnea - prednisone - inhaled bronchodilators standing and PRN - taper O2 to keep Spo2 >90% - rate control - outpt PFTs if able - DVT prophylaxis DR DIALLO
--- NOTE | 2018-07-09 12:59 | PN ---
Progress Note, Physician - Current Medication List Current Medications: Active Medications Albuterol Sulfate (Ventolin 0.083% Nebulizer Soln -) 1 amp NEB Q4H PRN PRN Reason: SHORT OF BREATH/WHEEZING Albuterol/Ipratropium (Duoneb -) 1 amp NEB RQID [facility] Last Admin: 07/09/18 11:15 Dose: 1 amp Aspirin (Ecotrin -) 81 mg PO DAILY [facility] Last Admin: 07/09/18 09:17 Dose: 81 mg Atorvastatin Calcium (Lipitor -) 40 mg PO HS [facility] Last Admin: 07/08/18 22:44 Dose: 40 mg Heparin Sodium (Porcine) (Heparin -) 5,000 unit SQ TID [facility] Last Admin: 07/09/18 07:03 Dose: 5,000 unit Hydralazine HCl (Apresoline -) 50 mg PO BID [facility] Last Admin: 07/09/18 09:17 Dose: 50 mg Metoprolol Tartrate (Lopressor -) 25 mg PO TID [facility] Last Admin: 07/09/18 07:03 Dose: 25 mg Prednisone (Deltasone -) 60 mg PO DAILY [facility] Last Admin: 07/09/18 09:17 Dose: 60 mg - Objective Vital Signs: Vital Signs Temperature 98 F 07/09/18 10:00 Pulse Rate 78 07/09/18 10:00 Respiratory Rate 18 07/09/18 10:00 Blood Pressure 156/70 07/09/18 10:00 O2 Sat by Pulse Oximetry (%) 92 L 07/09/18 09:42 Eyes: Yes: WNL, Conjunctiva Clear, EOM Intact HENT: Yes: WNL, Atraumatic, Normocephalic Neck: Yes: WNL, Supple, Trachea Midline Cardiovascular: Yes: WNL, Regular Rate and Rhythm Respiratory: Yes: WNL, Regular, CTA Bilaterally Gastrointestinal: Yes: WNL, Normal Bowel Sounds Genitourinary: Yes: WNL Musculoskeletal: Yes: WNL Extremities: Yes: WNL Edema: No Integumentary: Yes: WNL Neurological: Yes: WNL, Alert, Oriented ...Motor Strength: WNL Psychiatric: Yes: WNL Labs: CBC, BMP 07/09/18 05:30 07/09/18 05:30 INR, PTT INR 1.05 (0.83-1.09) 07/04/18 05:30 Assessment/Plan 88 y/o M w/ PMHx A-fib off of AC, CAD w/ stents x 2, 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 #Syncope Etiology: unclear Workup: --pharm stress negative for ischemia --ECG NSR with 1st degree AVB --telemetry without evidence of high degree AVB or pause will d/c --echocardiogram with mild to moderate dysfunction --abnormal carotids, please order MRA Treatment: --please consult neurology for further evaluation --if neurology evaluation without inconcusive can consider EP study #CAD: continue home medications #HTN; continue hydralazine 25mg TID, increase to 50mg if BP remains >140
[2018-07-09] MEDS ORDERED: FUROSEMIDE 40 MG TABLET (FP) PO ONE (14:53)
--- NOTE | 2018-07-09 14:56 | PN ---
Progress Note, Physician History of Present Illness: Pt seen and examined at bedside. He is awake and alert. He complains of shortness of breath today. - Current Medication List Current Medications: Active Medications Albuterol Sulfate (Ventolin 0.083% Nebulizer Soln -) 1 amp NEB Q4H PRN PRN Reason: SHORT OF BREATH/WHEEZING Albuterol/Ipratropium (Duoneb -) 1 amp NEB RQID [facility] Last Admin: 07/09/18 11:15 Dose: 1 amp Aspirin (Ecotrin -) 81 mg PO DAILY [facility] Last Admin: 07/09/18 09:17 Dose: 81 mg Atorvastatin Calcium (Lipitor -) 40 mg PO HS [facility] Last Admin: 07/08/18 22:44 Dose: 40 mg Heparin Sodium (Porcine) (Heparin -) 5,000 unit SQ TID [facility] Last Admin: 07/09/18 13:09 Dose: 5,000 unit Hydralazine HCl (Apresoline -) 50 mg PO BID [facility] Last Admin: 07/09/18 09:17 Dose: 50 mg Metoprolol Tartrate (Lopressor -) 25 mg PO TID [facility] Last Admin: 07/09/18 13:09 Dose: 25 mg Prednisone (Deltasone -) 60 mg PO DAILY [facility] Last Admin: 07/09/18 09:17 Dose: 60 mg - Objective Vital Signs: Vital Signs Temperature 98 F 07/09/18 10:00 Pulse Rate 78 07/09/18 10:00 Respiratory Rate 18 07/09/18 10:00 Blood Pressure 156/70 07/09/18 10:00 O2 Sat by Pulse Oximetry (%) 92 L 07/09/18 09:42 Constitutional: Yes: Calm Eyes: Yes: Conjunctiva Clear HENT: Yes: Atraumatic Neck: Yes: Supple Cardiovascular: Yes: S1, S2 Respiratory: Yes: On Nasal O2, Rhonchi Gastrointestinal: Yes: Soft Genitourinary: Yes: Incontinence Musculoskeletal: Yes: Muscle Weakness Edema: No Neurological: Yes: Oriented Psychiatric: Yes: Oriented Labs: CBC, BMP 07/09/18 05:30 07/09/18 05:30 INR, PTT INR 1.05 (0.83-1.09) 07/04/18 05:30 Problem List - Problems (1) Hypernatremia Code(s): E87.0 - HYPEROSMOLALITY AND HYPERNATREMIA (2) Elevated troponin Code(s): R74.8 - ABNORMAL LEVELS OF OTHER SERUM ENZYMES (3) Syncope Code(s): R55 - SYNCOPE AND COLLAPSE Qualifiers: Syncope type: unspecified Qualified Code(s): R55 - Syncope and collapse (4) Anemia Code(s): D64.9 - ANEMIA, UNSPECIFIED (5) CKD (chronic kidney disease) Code(s): N18.9 - CHRONIC KIDNEY DISEASE, UNSPECIFIED (6) HLD (hyperlipidemia) Code(s): E78.5 - HYPERLIPIDEMIA, UNSPECIFIED (7) HTN (hypertension) Code(s): I10 - ESSENTIAL (PRIMARY) HYPERTENSION Assessment/Plan Current Medications Generic Name Dose Route Start Last Admin Trade Name Freq PRN Reason Stop Dose Admin Albuterol Sulfate 1 amp 07/05/18 14:02 Ventolin 0.083% Nebulizer Soln - NEB Q4H PRN SHORT OF BREATH/WHEEZING Albuterol/Ipratropium 1 amp 07/05/18 12:00 07/09/18 11:15 Duoneb - NEB 1 amp RQID [facility] Administration Aspirin 81 mg 07/07/18 10:00 07/09/18 09:17 Ecotrin - PO 81 mg DAILY [facility] Administration Atorvastatin Calcium 40 mg 07/04/18 22:00 07/08/18 22:44 Lipitor - PO 40 mg HS [facility] Administration Furosemide 40 mg 07/09/18 14:53 Lasix - PO 07/09/18 14:54 ONCE ONE Heparin Sodium (Porcine) 5,000 unit 07/07/18 14:00 07/09/18 13:09 Heparin - SQ 5,000 unit TID [facility] Administration Hydralazine HCl 50 mg 07/09/18 10:00 07/09/18 09:17 Apresoline - PO 50 mg BID [facility] Administration Metoprolol Tartrate 25 mg 07/04/18 06:00 07/09/18 13:09 Lopressor - PO 25 mg TID [facility] Administration Prednisone 60 mg 07/09/18 10:00 07/09/18 09:17 Deltasone - PO 60 mg DAILY [facility] Administration Impression 1. CKD 2. syncope 3. a-fib 4. cva 5. hld 6. ALBERTA 7. hypernatremia Plan - will give a dose of lasix - renal function stable - encourage PO intake - monitor renal function - can see in office - lasix as needed - cont nebs - will follow Dr Cramer
[2018-07-09 15:58] VITALS: BP 83/63; PULSE 74; TEMP 98.4
== END 2018-07-09 17:01 | disposition home health service (06) | DRG 280 ==
LOC: JER 16:17 → JERBED 21:03 → INTOOBSV 21:03 → J4W 07-04 00:13 → OBSVTOIN 07-04 13:47 → J4W 07-06 18:09
PROVIDERS: ADMIT Internal Medicine; ATTEND Hospitalist
DX: I21.4 Non-ST elevation (NSTEMI) myocardial infarction (principal); I50.41 Acute combined systolic (congestive) and diastolic (congestive) heart failure; J96.01 Acute respiratory failure with hypoxia; E87.1 Hypo-osmolality and hyponatremia; J98.11 Atelectasis; E87.2 Acidosis; I13.0 Hypertensive heart and chronic kidney disease with heart failure and stage 1 through stage 4 chronic kidney disease, or unspecified chronic kidney disease; I69.354 Hemiplegia and hemiparesis following cerebral infarction affecting left non-dominant side; N17.9 Acute kidney failure, unspecified; E87.0 Hyperosmolality and hypernatremia; E87.3 Alkalosis; J44.1 Chronic obstructive pulmonary disease with (acute) exacerbation; I69.322 Dysarthria following cerebral infarction; N18.9 Chronic kidney disease, unspecified; I25.10 Atherosclerotic heart disease of native coronary artery without angina pectoris; I48.91 Unspecified atrial fibrillation; E78.5 Hyperlipidemia, unspecified; D64.9 Anemia, unspecified; Z95.5 Presence of coronary angioplasty implant and graft; Z87.891 Personal history of nicotine dependence; R55 Syncope and collapse; L89.151 Pressure ulcer of sacral region, stage 1; D72.829 Elevated white blood cell count, unspecified
CPT/HCPCS: 36415; 36600; 70450-TC; 71045-TC-FY; 71250-TC; 78452-TC; 80048; 80053; 80061; 81003; 81015; 82550; 82803; 83721; 83735; 83880; 84100; 84484; 85025; 85027; 85610; 85730; 86850; 86900; 86901; 93005; 93010; 93017; 93306-TC; 94640; 94761; 97161-GP; 99284-25; A9502; G0378; J1644; J2785